=== PATIENT | male | born 1970 | race Caucasian/White ===

== ENCOUNTER 2019-11-15 17:06 | Inpatient (IN) | payer OTHER ==
--- NOTE | 2019-11-15 18:51 | ED ---
SOB HPI - General Source: patient Mode of arrival: wheelchair Limitations: no limitations <Devonte Rosales - Last Filed: 11/15/19 20:05> <Alfreda De La Fuente - Last Filed: 11/20/19 00:43> - General Chief Complaint: Shortness of Breath Stated Complaint: SOB/heart concerns Time Seen by Provider: 11/15/19 18:23 - History of Present Illness Initial Comments: Patient is a 49-year-old male presenting to emergency Department with chief complaint of shortness of breath. Patient states he has not seen a doctor for about 35 years. Patient reports over the last few months he developed dyspnea on exertion. He does report occasional chest pain that he explains describes as a spasm during the past few months as well. Patient reports he does have a racing heartbeat whenever he is doing any extraneous work. Patient denies any diaphoretic episodes, light headedness, dizziness, nausea, vomiting, blurred vision. Denies any chest pain at this time. Denies any abdominal pain or back pain. Denies one-sided weakness or paresthesias. (Devonte Rosales) - Related Data Previous Rx's Medication Instructions Recorded Rivaroxaban [Xarelto] 20 mg PO DAILY #30 tab 11/16/19 Amiodarone [Cordarone] 200 mg PO BID #60 tab 11/18/19 Aspirin 81 mg PO DAILY #30 chew 11/18/19 Atorvastatin [Lipitor] 80 mg PO HS #30 tab 11/18/19 Clopidogrel [Plavix] 75 mg PO DAILY #30 tab 11/18/19 Digoxin [Lanoxin] 125 mcg PO DAILY #30 tab 11/18/19 Furosemide [Lasix] 40 mg PO DAILY #30 tablet 11/18/19 Lisinopril [Zestril] 5 mg PO HS #30 tab 11/18/19 Metoprolol Tartrate [Lopressor] 25 mg PO BID #60 tab 11/18/19 Nitroglycerin Sl Tabs [Nitrostat] 0.4 mg SUBLINGUAL Q5M PRN #7 tab 11/18/19 Spironolactone [Aldactone] 12.5 mg PO DAILY #30 tab 11/18/19 metFORMIN HCL [Glucophage] 850 mg PO BID #60 tab 11/18/19 sitaGLIPtin [Januvia] 100 mg PO DAILY #30 tab 11/18/19 Allergies Allergy/AdvReac Type Severity Reaction Status Date / Time bee venom protein (honey bee) Allergy Anaphylaxis Verified 11/15/19 19:29 shellfish derived Allergy Anaphylaxis Verified 11/15/19 19:29 Review of Systems ROS Other: All systems not noted in ROS Statement are negative. <Devonte Rosales - Last Filed: 11/15/19 20:05> ROS Other: All systems not noted in ROS Statement are negative. <Alfreda De La Fuente - Last Filed: 11/20/19 00:43> ROS Statement: Those systems with pertinent positive or pertinent negative responses have been documented in the HPI. Past Medical History Past Medical History: No Reported History History of Any Multi-Drug Resistant Organisms: None Reported Past Surgical History: No Surgical Hx Reported Past Psychological History: No Psychological Hx Reported Smoking Status: Current some day smoker Past Alcohol Use History: Rare Past Drug Use History: None Reported <Devonte Rosales - Last Filed: 11/15/19 20:05> General Exam Limitations: no limitations General appearance: alert, in no apparent distress, obese Head exam: Present: atraumatic, normocephalic, normal inspection Eye exam: Present: normal appearance, PERRL, EOMI Pupils: Present: normal accommodation ENT exam: Present: normal exam, normal oropharynx, mucous membranes moist Neck exam: Present: normal inspection, full ROM. Absent: tenderness Respiratory exam: Present: normal lung sounds bilaterally. Absent: respiratory distress, wheezes Cardiovascular Exam: Present: normal rhythm, tachycardia, normal heart sounds GI/Abdominal exam: Present: soft. Absent: distended, tenderness, guarding Extremities exam: Present: normal inspection, full ROM, normal capillary refill Back exam: Present: normal inspection, full ROM. Absent: tenderness Neurological exam: Present: alert, oriented X3 Psychiatric exam: Present: normal affect, normal mood Skin exam: Present: warm, dry, intact, normal color <Devonte Rosales - Last Filed: 11/15/19 20:05> Course Vital Signs 11/15/19 11/15/19 11/15/19 17:09 18:29 18:32 Temperature 98.1 F 98.3 F Pulse Rate 68 128 H Respiratory 18 18 18 Rate Blood Pressure 160/95 125/106 O2 Sat by Pulse 98 98 Oximetry 11/15/19 11/15/19 11/15/19 19:26 19:50 21:30 Temperature Pulse Rate 113 H 144 H 125 H Respiratory 18 18 Rate Blood Pressure 124/110 131/111 110/85 O2 Sat by Pulse 97 Oximetry 11/15/19 11/16/19 23:20 01:10 Temperature 98.2 F 97.9 F Pulse Rate 115 H 96 Respiratory 18 Rate Blood Pressure 119/103 135/99 O2 Sat by Pulse 97 97 Oximetry Medical Decision Making <Devonte Rosales - Last Filed: 11/15/19 20:05> - Lab Data Result diagrams: 11/18/19 04:38 11/19/19 14:50 <Alfreda De La Fuente - Last Filed: 11/20/19 00:43> - Medical Decision Making Patient is a 49-year-old male presenting to the emergency department with a chief complaint of shortness of breath. No chest pain at this time. Patient has not seen a physician in over 35 years. EKG shows A. fib with RVR. Pulse 135. Patient started on Cardizem bolus with a drip. Patient started on heparin. D-dimer negative. Patient will be admitted for further medical management. Case discussed with Dr. Prieto. Admitting physician is [facility] consulted (Devonte Rosales) I was available for consultation in the emergency department. The history and physical exam were done by the midlevel provider. I was consulted for this patients care. I reviewed the case with the midlevel provider and based on their presentation of the patient, I agree with the assessment, medical decision making and plan of care as documented. Chart was dictated using [employer] dictation software. Attempts were made to correct any dictation errors however some typographical errors may persist. Patient was seen during a national state of emergency due to the Covid-19 pandemic. (Alfreda De La Fuente) - Lab Data Lab Results 11/15/19 11/15/19 11/15/19 Range/Units 18:47 18:47 18:47 WBC 10.0 (3.8-10.6) k/uL RBC 5.48 (4.30-5.90) m/uL Hgb 16.0 (13.0-17.5) gm/dL Hct 49.5 (39.0-53.0) % MCV 90.3 (80.0-100.0) fL MCH 29.2 (25.0-35.0) pg MCHC 32.4 (31.0-37.0) g/dL RDW 13.0 (11.5-15.5) % Plt Count 219 (150-450) k/uL Neutrophils % 72 % Lymphocytes % 21 % Monocytes % 5 % Eosinophils % 2 % Basophils % 0 % Neutrophils # 7.2 (1.3-7.7) k/uL Lymphocytes # 2.1 (1.0-4.8) k/uL Monocytes # 0.5 (0-1.0) k/uL Eosinophils # 0.2 (0-0.7) k/uL Basophils # 0.0 (0-0.2) k/uL PT (9.0-12.0) sec INR (<1.2) APTT (22.0-30.0) sec D-Dimer (<0.60) mg/L FEU Sodium 138 (137-145) mmol/L Potassium 4.3 (3.5-5.1) mmol/L Chloride 103 (98-107) mmol/L Carbon Dioxide 25 (22-30) mmol/L Anion Gap 10 mmol/L BUN 16 (9-20) mg/dL Creatinine 0.78 (0.66-1.25) mg/dL Est GFR (CKD-EPI)AfAm >90 (>60 ml/min/1.73 sqM) Est GFR (CKD-EPI)NonAf >90 (>60 ml/min/1.73 sqM) Glucose 309 H (74-99) mg/dL Calcium 9.3 (8.4-10.2) mg/dL Total Bilirubin 0.9 (0.2-1.3) mg/dL AST 48 (17-59) U/L ALT 49 (4-49) U/L Alkaline Phosphatase 97 (38-126) U/L Total Creatine Kinase 115 (55-170) U/L CK-MB (CK-2) 3.5 H (0.0-2.4) ng/mL CK-MB (CK-2) Rel Index 3.0 Troponin I 0.062 H* (0.000-0.034) ng/mL NT-Pro-B Natriuret Pep pg/mL Total Protein 7.0 (6.3-8.2) g/dL Albumin 4.4 (3.5-5.0) g/dL Coronavirus (PCR) (Not Detected) 11/15/19 11/15/19 11/15/19 Range/Units 18:47 18:47 20:17 WBC (3.8-10.6) k/uL RBC (4.30-5.90) m/uL Hgb (13.0-17.5) gm/dL Hct (39.0-53.0) % MCV (80.0-100.0) fL MCH (25.0-35.0) pg MCHC (31.0-37.0) g/dL RDW (11.5-15.5) % Plt Count (150-450) k/uL Neutrophils % % Lymphocytes % % Monocytes % % Eosinophils % % Basophils % % Neutrophils # (1.3-7.7) k/uL Lymphocytes # (1.0-4.8) k/uL Monocytes # (0-1.0) k/uL Eosinophils # (0-0.7) k/uL Basophils # (0-0.2) k/uL PT 12.2 H (9.0-12.0) sec INR 1.2 H (<1.2) APTT 23.2 (22.0-30.0) sec D-Dimer 0.46 (<0.60) mg/L FEU Sodium (137-145) mmol/L Potassium (3.5-5.1) mmol/L Chloride (98-107) mmol/L Carbon Dioxide (22-30) mmol/L Anion Gap mmol/L BUN (9-20) mg/dL Creatinine (0.66-1.25) mg/dL Est GFR (CKD-EPI)AfAm (>60 ml/min/1.73 sqM) Est GFR (CKD-EPI)NonAf (>60 ml/min/1.73 sqM) Glucose (74-99) mg/dL Calcium (8.4-10.2) mg/dL Total Bilirubin (0.2-1.3) mg/dL AST (17-59) U/L ALT (4-49) U/L Alkaline Phosphatase (38-126) U/L Total Creatine Kinase (55-170) U/L CK-MB (CK-2) (0.0-2.4) ng/mL CK-MB (CK-2) Rel Index Troponin I (0.000-0.034) ng/mL NT-Pro-B Natriuret Pep 2790 pg/mL Total Protein (6.3-8.2) g/dL Albumin (3.5-5.0) g/dL Coronavirus (PCR) Not Detected (Not Detected) Critical Care Time Critical Care Time: Yes <Alfreda De La Fuente - Last Filed: 11/20/19 00:43> Critical Care Time: 35 minutes (Alfreda De La Fuente) Disposition Is patient prescribed a controlled substance at d/c from ED?: No Time of Disposition: 20:07 <Devonte Rosales - Last Filed: 11/15/19 20:05> <Alfreda De La Fuente - Last Filed: 11/20/19 00:43> Clinical Impression: Shortness of breath, Racing heart beat, Atrial fibrillation with RVR Disposition: ADMITTED IP TO THIS HOSP Condition: Good
[2019-11-15 18:53] LABS: Basophils % (A) 0 %; Eosinophils # (A) 0.2 k/uL (0-0.7); Eosinophils % (A) 2 %; HCT 49.5 % (39.0-53.0); Lymphocytes # (A) 2.1 k/uL (1.0-4.8); Lymphocytes % (A) 21 %; MCH 29.2 pg (25.0-35.0); MCHC 32.4 g/dL (31.0-37.0); MCV 90.3 fL (80.0-100.0); Mean Platelet Volume 8.5; Monocytes # (A) 0.5 k/uL (0-1.0); Monocytes % (A) 5 %; Neutrophils # (A) 7.2 k/uL (1.3-7.7); Neutrophils % (A) 72 %; Platelet Count 219 k/uL (150-450); RBC 5.48 m/uL (4.30-5.90)
[2019-11-15 19:02] LABS: ALT 49 U/L (4-49); AST 48 U/L (17-59); African American GFR (CKD) >90 (>60 ml/min/1.73 sqM); Albumin 4.4 g/dL (3.5-5.0); Alkaline Phosphatase 97 U/L (38-126); Anion Gap 10 mmol/L; Blood Urea Nitrogen 16 mg/dL (9-20); Calcium 9.3 mg/dL (8.4-10.2); Carbon Dioxide 25 mmol/L (22-30); Chloride 103 mmol/L (98-107); Glucose 309 mg/dL (74-99); Non-African American GFR(CKD) >90 (>60 ml/min/1.73 sqM); Potassium 4.3 mmol/L (3.5-5.1); Sodium 138 mmol/L (137-145); Total Bilirubin 0.9 mg/dL (0.2-1.3)
[2019-11-15 19:11] LABS: D-Dimer 0.46 mg/L FEU (<0.60); INR 1.2 (<1.2); Partial Thromboplastin Time 23.2 sec (22.0-30.0); Prothrombin Time 12.2 sec (9.0-12.0)
[2019-11-15 19:13] LABS: Creatine Kinase MB 3.5 ng/mL (0.0-2.4)
[2019-11-15] MEDS ORDERED: DILTIAZEM DRIP BOLUS FROM BAG 1 MG SOLN IV ONE (19:15)
[2019-11-15] MEDS ORDERED: DILTIAZEM 125 MG in SODIUM CHLORIDE 0.9% 100 ML IV SCH (19:15)
--- NOTE | 2019-11-15 19:15 | XR ---
EXAMINATION TYPE: XR chest 2V DATE OF EXAM: 11/15/2019 COMPARISON: 10/22/2012 HISTORY: Short of breath TECHNIQUE: FINDINGS: Heart is enlarged. There is no gross heart failure. There is no definite pleural effusion. There are no hilar masses. There are chest leads. Bony thorax is intact. IMPRESSION: Cardiomegaly. Heart appears increased compared to old exam. No obvious heart failure.
[2019-11-15 19:17] LABS: Troponin I 0.062 ng/mL (0.000-0.034)
[2019-11-15] MEDS ORDERED: ASPIRIN 325 MG TAB PO STA (19:20)
[2019-11-15] MEDS ORDERED: NITROGLYCERIN SL TABS 0.4 MG TAB SUBLINGUAL PRN (20:01)
[2019-11-15] MEDS ORDERED: HEPARIN SODIUM,PORCINE 5,000 UNIT/ML 1 ML VIAL IV ONE ×2 (20:05→22:01)
[2019-11-15] MEDS ORDERED: HEPARIN SODIUM,PORCINE 5,000 UNIT/ML 1 ML VIAL IV PRN (22:01)
[2019-11-15] MEDS ORDERED: HEPARIN SOD,PORK IN 0.45% NACL 25,000 UNIT in 0.45% NACL 1 250ML.BAG IV SCH (22:15)
[2019-11-15] MEDS: HEPARIN SOD,PORK IN 0.45% NACL 25,000 UNIT in 0.45% NACL 1 250ML.BAG IV SCH (23:15)
--- NOTE | 2019-11-15 23:27 | P.HPIM ---
History of Present Illness H&P Date: 11/15/19 Patient was seen and evaluated in the emergency room at 8 PM on 11/14 The patient is a 49-year-old male with a PMH of tobacco abuse who has not seen a physician for over 30 years presented to the ED due to gradually worsening shortness of breath. The patient reports that he has had intermittent palp itations for the past few years and has had gradually worsening exercise tolerance with symptoms of orthopnea and PND for the last 2 or 3 months. He also reports bilateral lower extremity edema for the past few weeks. He denied chest discomfort, nausea, vomiting, diaphoresis, or dizziness. 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 He notes that he now gets short of breath with climbing just a few stairs. He denied cough, fever, or chills. Denied abdominal pain or diarrhea. In the emergency room, the patient's EKG revealed A. fib with RVR at 135 bpm with a left anterior fascicular block. Chest x-ray revealed cardiomegaly. Laboratory evaluation revealed a troponin of 0.062, WC count 10.0, hemoglobin 16.0, platelets 219, d-dimer 0.46, sodium 138, potassium 4.3, chloride 103, BUN 16, creatinine 0.7, and a glucose of 309. The patient reports that he does have a family history of atrial fibrillation and other heart disease. Review of Systems Pertinent positives and negatives as discussed in HPI, a complete review of systems was performed and all other systems are negative. Past Medical History Past Medical History: No Reported History History of Any Multi-Drug Resistant Organisms: None Reported Past Surgical History: No Surgical Hx Reported Past Psychological History: No Psychological Hx Reported Smoking Status: Current some day smoker Past Alcohol Use History: Rare Past Drug Use History: None Reported Medications and Allergies Home Medications Medication Instructions Recorded Confirmed Type Naproxen Sodium [Aleve] 440 mg PO DAILY PRN 11/15/19 11/15/19 History Allergies Allergy/AdvReac Type Severity Reaction Status Date / Time bee venom protein (honey bee) Allergy Anaphylaxis Verified 11/15/19 19:29 shellfish derived Allergy Anaphylaxis Verified 11/15/19 19:29 Physical Exam Vitals: Vital Signs Temp Pulse Resp BP Pulse Ox 11/15/19 19:50 144 H 131/111 11/15/19 19:26 113 H 18 124/110 97 11/15/19 18:32 98.3 F 128 H 18 125/106 98 11/15/19 18:29 18 11/15/19 17:09 98.1 F 68 18 160/95 98 Intake and Output 11/15/19 11/15/19 11/15/19 06:59 14:59 22:59 Other: Weight 143.834 kg General: non toxic, no distress, appears at stated age, obese Derm: no unusual rashes/lesions no unusual ecchymoses, warm, dry Head: atraumatic, normocephalic, symmetric Eyes: EOMI, no lid lag, anicteric sclera, pupils equal round reactive to light ENT: Nose and ears atraumatic, no thrush, no pharyngeal erythema Neck: No thyromegaly, no cervical lymphadenopathy, trachea midline, supple Mouth: no lip lesion, mucus membranes moist Cardiovascular: S1S2 reg, no murmur, positive posterior tibial pulse bilateral, 2+ bilateral lower extremity pitting edema to knees, capillary refill less than 2 seconds Lungs: CTA bilateral, no rhonchi, no rales , no accessory muscle use Abdominal: soft, nontender to palpation, no guarding, no appreciable organomegaly, normal bowel sounds Ext: no gross muscle atrophy, muscle strength 5 out of 5 in all 4 extremities grossly, no contractures, Neuro: CN II-XI grossly intact, light touch intact all 4 extremities, finger to nose within normal limits, Psych: Alert, oriented, appropriate affect Results CBC & Chem 7: 11/15/19 18:47 11/15/19 18:47 Assessment and Plan Plan: Newly diagnosed A. fib with RVR -Continue with heparin infusion and Cardizem infusion -Cardiac monitoring -Echocardiogram -Cardial to consult Cardiomegaly, orthopnea, and PND with lower extremity edema -Suspected cardiomyopathy possibly secondary to A. fib versus underlying ischemic heart disease -Check BNP -Obtain echocardiogram as above -Cardiology consulted Elevated troponin, likely secondary to A. fib with RVR -Trend for now -Cardiac monitoring Newly diagnosed type II DM -Diabetic nurse education -Check A1c -Lispro sliding scale blood glucose monitoring for now DVT prophylaxis -Heparin infusion The patient is admitted with an anticipated greater than 2 midnight stay for evaluation of A. fib with RVR. CODE STATUS: Full Code Discussed with: Patient Anticipated discharge date: 2-[address]: Home A total of 40 minutes was spent on the care of this complex patient more than 50% of the time was spent in counseling and care coordination.
[2019-11-16] MEDS ORDERED: ATORVASTATIN 80 MG TAB PO STA (03:11)
[2019-11-16] MEDS ORDERED: CLOPIDOGREL 75 MG TAB PO STA (03:11)
[2019-11-16] MEDS ORDERED: FUROSEMIDE 10 MG/ML 4 ML VIAL IV STA (03:12)
[2019-11-16 05:53] LABS: Basophils # (A) 0.1 k/uL (0-0.2); Basophils % (A) 1 %; Eosinophils # (A) 0.3 k/uL (0-0.7); Eosinophils % (A) 3 %; HCT 46.7 % (39.0-53.0); HGB 16.1 gm/dL (13.0-17.5); Lymphocytes # (A) 3.8 k/uL (1.0-4.8); Lymphocytes % (A) 38 %; MCH 30.8 pg (25.0-35.0); MCHC 34.5 g/dL (31.0-37.0); MCV 89.2 fL (80.0-100.0); Mean Platelet Volume 8.6; Monocytes # (A) 0.5 k/uL (0-1.0); Monocytes % (A) 5 %; Neutrophils # (A) 5.2 k/uL (1.3-7.7); Neutrophils % (A) 52 %; Platelet Count 210 k/uL (150-450); RBC 5.24 m/uL (4.30-5.90); RDW 13.1 % (11.5-15.5)
[2019-11-16 06:06] LABS: Cholesterol 141 mg/dL (<200); HDL Cholesterol 37 mg/dL (40-60); LDL Cholesterol,Calculated 71 mg/dL (0-99); Triglycerides 166 mg/dL (<150)
[2019-11-16] MEDS: INSULIN ASPART (NovoLOG) 100 UNIT/ML VIAL SQ SCH ×3 (07:54→17:37)
[2019-11-16] MEDS: HEPARIN SODIUM,PORCINE 5,000 UNIT/ML 1 ML VIAL IV PRN ×2 (07:58→17:37)
[2019-11-16] MEDS ORDERED: DEXTROSE 5% IN WATER 100 ML with AMIODARONE 150 MG IV ONE (09:12)
[2019-11-16] MEDS ORDERED: AMIODARONE 360 MG in DEXTROSE 5% IN WATER 200 ML IV ONE ×2 (09:12)
[2019-11-16] MEDS: ASPIRIN 325 MG TAB PO SCH (09:24)
[2019-11-16] MEDS: FUROSEMIDE 10 MG/ML 4 ML VIAL IV SCH ×2 (09:25→20:47)
[2019-11-16] MEDS: CLOPIDOGREL 75 MG TAB PO SCH (09:25)
[2019-11-16] MEDS: DIGOXIN 250 MCG/ML 2 ML AMP IVP SCH ×2 (09:26→15:59)
--- NOTE | 2019-11-16 10:15 | P.CRDCN ---
History of Present Illness Consult date: 11/16/19 History of present illness: This is a 49-year-old gentleman who has not seen a physician since several areas is admitted through emergency room with complaints of increasing shortness of breath and tightness for the last several months. Patient also noticed edema and swelling of the legs. He had symptoms size to of paroxysmal nocturnal dyspnea bradycardia has to wake up at night and sit up and breathe heavy. He also had exertional shortness of breath. His x-ray showed evidence of cardiac megaly. His proBNP is elevated. He had significant edema. Findings were consistent with possible CHF. Patient also has atrial fibrillation with rapid ventricular response. Has been having intermittent palpitations. Bedside echo Cardigan showed severe LV dysfunction with some segmental wall motion defects. Inferobasal segment is doing better. There is severe hypokinesia of the rest of the left ventricle. No significant valvular abnormalities noted. Patient lives by himself. He is not but has one child. No family history of ischemic heart disease. There is family history of atrial fibrillation. Patient denied any alcohol abuse. He is a chronic smoker. Review of Systems As per the chart Past Medical History Past Medical History: No Reported History History of Any Multi-Drug Resistant Organisms: None Reported Past Surgical History: No Surgical Hx Reported Past Psychological History: No Psychological Hx Reported Smoking Status: Current some day smoker Past Alcohol Use History: Rare Past Drug Use History: None Reported Medications and Allergies Home Medications Medication Instructions Recorded Confirmed Type Naproxen Sodium [Aleve] 440 mg PO DAILY PRN 11/15/19 11/15/19 History Allergies Allergy/AdvReac Type Severity Reaction Status Date / Time bee venom protein (honey bee) Allergy Anaphylaxis Verified 11/15/19 19:29 shellfish derived Allergy Anaphylaxis Verified 11/15/19 19:29 Physical Exam Vitals: Vital Signs Temp Pulse Pulse Resp BP BP Pulse Ox 11/16/19 08:00 104 H 12 11/16/19 04:00 98.7 F 104 H 12 112/88 94 L 11/16/19 03:30 99 17 121/109 96 11/16/19 03:00 110 H 14 135/115 94 L 11/16/19 02:30 104 H 16 126/88 95 11/16/19 01:10 97.9 F 96 18 135/99 97 11/15/19 23:20 98.2 F 115 H 119/103 97 11/15/19 21:30 125 H 18 110/85 11/15/19 19:50 144 H 131/111 11/15/19 19:26 113 H 18 124/110 97 11/15/19 18:32 98.3 F 128 H 18 125/106 98 11/15/19 18:29 18 11/15/19 17:09 98.1 F 68 18 160/95 98 Intake and Output 11/15/19 11/16/19 11/16/19 22:59 06:59 14:59 Intake Total 30 578.28 Output Total 1400 350 Balance -1370 228.28 Intake: IV 30 30 .9NS 30 30 Intake, IV Titration 188.28 Amount Dextrose 5% in Water 100 100 ml @ 618 mls/hr IV .Q10M ONE with Amiodarone 150 mg Rx#:[id number] Heparin Sod,Pork in 0.45% 88.28 NaCl 25,000 unit In 0.45 % NaCl 1 250ml.bag @ 6.95 UNITS/KG/HR 9.994 mls/hr IV .Q24H [facility] Rx#: [id number] Oral 360 Output: Urine 1400 350 Other: Weight 143.834 kg 144.1 kg GENERAL EXAM: Patient is alert and oriented and doesn't appear to be in any acute distress HEENT: Normocephalic. Normal reaction of pupils, equal size, normal range of extraocular motion. No erythema or exudates in the throat. NECK: JVD plus CHEST: No chest wall deformity. LUNGS: Patient has chronic basis HEART: S1 and S2 normal. Irregular heart rhythm ABDOMEN: No hepatosplenomegaly, normal bowel sounds, no guarding or rigidity. SKIN: No rashes CENTRAL NERVOUS SYSTEM: No focal deficits. EXTREMITIES: With 3+ edema Results 11/16/19 05:28 11/15/19 18:47 Cardiac Enzymes 11/15/19 11/15/19 11/15/19 Range/Units 18:47 18:47 23:35 AST 48 (17-59) U/L CK-MB (CK-2) 3.5 H (0.0-2.4) ng/mL Troponin I 0.062 H* 0.900 H* (0.000-0.034) ng/mL 11/16/19 Range/Units 07:27 AST (17-59) U/L CK-MB (CK-2) (0.0-2.4) ng/mL Troponin I 1.330 H* (0.000-0.034) ng/mL Coagulation 11/15/19 11/16/19 Range/Units 18:47 05:28 PT 12.2 H (9.0-12.0) sec APTT 23.2 27.8 (22.0-30.0) sec Lipids 11/16/19 Range/Units 05:28 Triglycerides 166 H (<150) mg/dL Cholesterol 141 (<200) mg/dL HDL Cholesterol 37 L (40-60) mg/dL CBC 11/15/19 11/16/19 Range/Units 18:47 05:28 WBC 10.0 10.0 (3.8-10.6) k/uL RBC 5.48 5.24 (4.30-5.90) m/uL Hgb 16.0 16.1 (13.0-17.5) gm/dL Hct 49.5 46.7 (39.0-53.0) % Plt Count 219 210 (150-450) k/uL Comprehensive Metabolic Panel 11/15/19 Range/Units 18:47 Sodium 138 (137-145) mmol/L Potassium 4.3 (3.5-5.1) mmol/L Chloride 103 (98-107) mmol/L Carbon Dioxide 25 (22-30) mmol/L BUN 16 (9-20) mg/dL Creatinine 0.78 (0.66-1.25) mg/dL Glucose 309 H (74-99) mg/dL Calcium 9.3 (8.4-10.2) mg/dL AST 48 (17-59) U/L ALT 49 (4-49) U/L Alkaline Phosphatase 97 (38-126) U/L Total Protein 7.0 (6.3-8.2) g/dL Albumin 4.4 (3.5-5.0) g/dL Current Medications Generic Name Dose Route Start Last Admin Trade Name Freq PRN Reason Stop Dose Admin Aspirin 325 mg 11/16/19 09:00 11/16/19 09:24 Aspirin PO 325 mg DAILY JACLYN Administration Atorvastatin Calcium 80 mg 11/16/19 21:00 Lipitor PO HS JACLYN Clopidogrel Bisulfate 75 mg 11/16/19 09:00 11/16/19 09:25 Plavix PO 75 mg DAILY JACLYN Administration Digoxin 125 mcg 11/16/19 10:00 11/16/19 09:26 Lanoxin IVP 11/16/19 16:01 125 mcg Q6H JACLYN Administration Digoxin 125 mcg 11/17/19 09:00 Lanoxin PO DAILY JACLYN Furosemide 40 mg 11/16/19 09:00 11/16/19 09:25 Lasix IV 40 mg Q12HR JACLYN Administration Heparin Sodium (Porcine) 0 unit 11/15/19 20:05 11/16/19 07:58 Heparin IV 4,000 unit PER PROTOCOL PRN Administration Low PTT Protocol Heparin Sodium/Sodium Chloride 250 mls @ 9.994 mls/hr 11/15/19 20:15 11/16/19 08:05 25,000 unit/ Sodium Chloride IV 9.95 units/kg/hr .Q24H JACLYN 14.308 mls/hr Titration Protocol 6.95 UNITS/KG/HR Amiodarone HCl 360 mg/ 200 mls @ 33.333 mls/hr 11/16/19 09:12 11/16/19 09:26 Dextrose/Water IV 11/16/19 15:11 1 mg/min .Q6H ONE 33.333 mls/hr Administration Protocol 1 MG/MIN Amiodarone HCl 300 mg/ 250 mls @ 25 mls/hr 11/16/19 15:12 Dextrose/Water IV 11/17/19 09:11 .Q10H JACLYN Protocol 0.5 MG/MIN Insulin Aspart 0 unit 11/16/19 07:30 11/16/19 07:54 Novolog SQ 2 unit AC-TID JACLYN Administration Protocol Lisinopril 2.5 mg 11/16/19 09:15 11/16/19 09:26 Zestril PO 2.5 mg DAILY JACLYN Administration Metoprolol Tartrate 12.5 mg 11/16/19 09:00 Lopressor PO BID [facility] Nitroglycerin 0.4 mg 11/15/19 20:01 Nitrostat SUBLINGUAL Q5M PRN Chest Pain Intake and Output 11/15/19 11/16/19 11/16/19 22:59 06:59 14:59 Intake Total 30 578.28 Output Total 1400 350 Balance -1370 228.28 Intake: IV 30 30 .9NS 30 30 Intake, IV Titration 188.28 Amount Dextrose 5% in Water 100 100 ml @ 618 mls/hr IV .Q10M ONE with Amiodarone 150 mg Rx#:[id number] Heparin Sod,Pork in 0.45% 88.28 NaCl 25,000 unit In 0.45 % NaCl 1 250ml.bag @ 6.95 UNITS/KG/HR 9.994 mls/hr IV .Q24H JACLYN Rx#: [id number] Oral 360 Output: Urine 1400 350 Other: Weight 143.834 kg 144.1 kg 11/16/19 05:28 11/15/19 18:47 Assessment and Plan (1) Atrial fibrillation with RVR Current Visit: Yes Status: Acute Code(s): I48.91 - UNSPECIFIED ATRIAL FIBRILLATION SNOMED Code(s): 247800384790203 (2) Ischemic cardiomyopathy Current Visit: Yes Status: Acute Code(s): I25.5 - ISCHEMIC CARDIOMYOPATHY SNOMED Code(s): 521425177 (3) Acute systolic CHF (congestive heart failure) Current Visit: Yes Status: Acute Code(s): I50.21 - ACUTE SYSTOLIC (CONGESTIVE) HEART FAILURE SNOMED Code(s): 553919843 (4) CAD (coronary artery disease) Current Visit: Yes Status: Acute Code(s): I25.10 - ATHSCL HEART DISEASE OF [place] CORONARY ARTERY W/O ANG PCTRS SNOMED Code(s): 23776684 Plan: We'll continue with rate control with amiodarone. Patient will be continued on Lasix and Aldactone. Javier inhibitors will be added along with beta jacqui. Patient may need a cardiac catheterization to rule out underlying ischemic heart disease. Further examination depend upon the clinical course
--- NOTE | 2019-11-16 11:13 | ECHOF ---
Referral Reason:Afib MEASUREMENTS -------- HEIGHT: 188.0 cm WEIGHT: 143.8 kg BP: RVIDd: 4.9 cm (< 3.3) IVSd: 1.3 cm (0.6 - 1.1) LVIDd: 6.0 cm (3.9 - 5.3) LVPWd: 1.3 cm (0.6 - 1.1) IVSs: 1.8 cm LVIDs: 5.4 cm LVPWs: 1.8 cm LA Diam: 5.4 cm (2.7 - 3.8) LAESV Index (A-L): 53.09 ml/m Ao Diam: 3.6 cm (2.0 - 3.7) AV Cusp: 2.3 cm (1.5 - 2.6) MV EXCURSION: 17.961 mm (> 18.000) MV EF SLOPE: 75 mm/s (70 - 150) EPSS: 1.9 cm MV E Ed: 1.17 m/s MV DecT: 380 ms MV A Ed: 0.89 m/s MV E/A Ratio: 1.31 RAP: 5.00 mmHg RVSP: 38.54 mmHg FINDINGS -------- Atrial fibrillation. This was a techncally difficult study with suboptimal views, , Lumason utilized for enhancement of im ages. The left ventricle is mildly dilated. Left ventricular wall thickness is normal. Overall left carlos tricular systolic function is severely impaired with, an EF between 20 - 25 %. Basal anterior LV wa ll motion is akinetic. Mid anterior LV wall motion is akinetic. Mid lateral LV wall motion is a kinetic. Mid anteroseptal LV wall motion is akinetic. Apical anterior LV wall motion is akineti c. Apical lateral LV wall motion is akinetic. Apical septum LV wall motion is akinetic. The right ventricle is severely enlarged. LA is severely dilated >40 ml/m2 The right atrial size is normal. 5.0mg OF Lumason UTLIZED: 2 OR MORE WALL SEGMENTS NOT VISUALIZED. The aortic valve is trileaflet, and appears structurally normal. No aortic stenosis or regurgitation. The mitral valve is normal. [id number]-[id number] mitral regurgitation is present. The tricuspid valve appears structurally normal. Mild tricuspid regurgitation present. There is m ild pulmonary hypertension. There is no pulmonic regurgitation present. The aortic root size is normal. There is no pericardial effusion. CONCLUSIONS -------- 1. This was a techncally difficult study with suboptimal views, , Lumason utilized for enhancement of images. 2. The left ventricle is mildly dilated. 3. Overall left ventricular systolic function is severely impaired with, an EF between 20 - 25 %. 4. Basal anterior LV wall motion is akinetic. 5. Mid anterior LV wall motion is akinetic. 6. Mid lateral LV wall motion is akinetic. 7. Mid anteroseptal LV wall motion is akinetic. 8. Apical anterior LV wall motion is akinetic. 9. Apical lateral LV wall motion is akinetic. 10. Apical septum LV wall motion is akinetic. 11. The right ventricle is severely enlarged. 12. LA is severely dilated >40 ml/m2 13. 5.0mg OF Lumason UTLIZED: 2 OR MORE WALL SEGMENTS NOT VISUALIZED. 14. The aortic valve is trileaflet, and appears structurally normal. No aortic stenosis or regurgitat ion. 15. Dknz-le-kekpekqk mitral regurgitation is present. 16. Mild tricuspid regurgitation present. 17. There is no pulmonic regurgitation present. PRECISION HONING MACHINE OPERATOR: Debora Shepard RDCS
[2019-11-16] MEDS: METOPROLOL TARTRATE 12.5 MG TAB PO SCH ×2 (13:17→20:47)
[2019-11-16 13:47] LABS: Hemoglobin A1C 8.3 % (4.0-6.0)
--- NOTE | 2019-11-16 14:17 | P.PN ---
Subjective Progress Note Date: 11/16/19 (delayed charting seen at 1015) Principal diagnosis: shortness of breath Patient is a 49-year-old male with known prior hyperglycemia, tobacco abuse, and obesity who presented to the emergency department with shortness of breath. In the ER he was found to have atrial fibrillation with rapid ventricular response, elevated troponin felt to be secondary to A. fib with RVR, elevated BNP, and chest x-ray that demonstrated cardiomegaly without obvious heart failure. He was admitted and started on a heparin drip and Cardizem drip. Cardiology was consulted and echocardiogram was ordered. Echocardiogram showed severe systolic impairment with an ejection fraction of 20-25% and global hypokinesis. His troponin continued to elevate. Patient was seen by cardiology and started on amiodarone. He also started the patient on Lasix, Aldactone, and MARIEL inhibitor, and beta jacqui. He'll consider cardiac catheterization to rule out underlying ischemic heart disease. Of note the patient reports he had severe hyperglycemia in the past but has never been formally diagnosed with diabetes. He states that he had intermittently taking his mom diabetic medication in the past. He is also concerned that he will lose his job this coming May and lose his health insurance. He has not seen a physician in years secondary to not having insurance. He reports both of his parents have diabetes. Patient seen and examined at bedside. He still feels that there is a heaviness in his chest and some difficulty breathing, hemoglobin longer feels a racing heart. He denies any lightheadedness, dizziness, nausea, or vomiting. Objective - Vital Signs Vital signs: Vital Signs Temp 98.7 F 11/16/19 04:00 Pulse 104 H 11/16/19 12:00 Resp 12 11/16/19 12:00 BP 112/88 11/16/19 04:00 Pulse Ox 94 L 11/16/19 04:00 Intake & Output 11/15/19 11/16/19 11/16/19 18:59 06:59 18:59 Intake Total 30 1034.28 Output Total 1400 1650 Balance -1370 -615.72 Weight 143.834 kg 144.1 kg Intake: IV 30 60 .9NS 30 60 Intake, IV Titration 254.28 Amount Amiodarone 360 mg In 66 Dextrose 5% in Water 200 ml @ 1 MG/MIN 33.333 mls/ hr IV .Q6H [facility] Rx#: [id number] Dextrose 5% in Water 100 100 ml @ 618 mls/hr IV .Q10M [facility] with Amiodarone 150 mg Rx#:[id number] Heparin Sod,Pork in 0.45% 88.28 NaCl 25,000 unit In 0.45 % NaCl 1 250ml.bag @ 6.95 UNITS/KG/HR 9.994 mls/hr IV .Q24H [facility] Rx#: [id number] Oral 720 Output: Urine 1400 1650 - Exam General: Ill-appearing, no distress, appears at stated age, obese Derm: warm, dry Head: atraumatic, normocephalic, symmetric Eyes: EOMI, no lid lag, anicteric sclera Mouth: no lip lesion, mucus membranes moist Cardiovascular: S1S2 regular, no murmur, positive posterior tibial pulse bilateral, Lungs: Decreased breath sounds bilateral , no accessory muscle use Abdominal: soft, nontender to palpation, no guarding, no appreciable organomegaly Ext: no gross muscle atrophy, 2+ lower extremity edema, no contractures Neuro: CN II-XI grossly intact, no focal neuro deficits Psych: Alert, oriented, appropriate affect - Labs CBC & Chem 7: 11/16/19 05:28 11/15/19 18:47 Labs: Abnormal Lab Results - Last 24 Hours (Table) 11/15/19 11/15/19 11/15/19 Range/Units 18:47 18:47 18:47 PT 12.2 H (9.0-12.0) sec INR 1.2 H (<1.2) Glucose 309 H (74-99) mg/dL Hemoglobin A1c (4.0-6.0) % CK-MB (CK-2) 3.5 H (0.0-2.4) ng/mL Troponin I 0.062 H* (0.000-0.034) ng/mL Triglycerides (<150) mg/dL HDL Cholesterol (40-60) mg/dL 11/15/19 11/16/19 11/16/19 Range/Units 23:35 05:28 05:28 PT (9.0-12.0) sec INR (<1.2) Glucose (74-99) mg/dL Hemoglobin A1c 8.3 H (4.0-6.0) % CK-MB (CK-2) (0.0-2.4) ng/mL Troponin I 0.900 H* (0.000-0.034) ng/mL Triglycerides 166 H (<150) mg/dL HDL Cholesterol 37 L (40-60) mg/dL 11/16/19 Range/Units 07:27 PT (9.0-12.0) sec INR (<1.2) Glucose (74-99) mg/dL Hemoglobin A1c (4.0-6.0) % CK-MB (CK-2) (0.0-2.4) ng/mL Troponin I 1.330 H* (0.000-0.034) ng/mL Triglycerides (<150) mg/dL HDL Cholesterol (40-60) mg/dL Assessment and Plan Assessment: Newly discovered atrial fibrillation with rapid ventricular response -On amiodarone and digoxin per cardiology. Cardizem drip stopped. -Check coverage of Xarelto -Cardiology recommendations appreciated -Telemetry Systolic cardiomyopathy with ejection fraction 20-25%, and acute exacerbation -Continue with Aldactone, digoxin, beta jacqui, MARIEL inhibitor -Monitor fluid status closely may need initiation of Lasix as well -Cardiology recommendations appreciated -Will likely need a heart catheterization Elevated troponins with concern for ischemic heart disease secondary to hypokinesis and depressed ejection fraction -Aspirin, plavix -Heparin drip -Cardiology recommendations -Beta jacqui -Statin -Cholesterol profile in acceptable range Hyperglycemia -Suspect diabetes mellitus with a blood sugar on arrival greater than 300 -Sliding-scale insulin -Await hemoglobin A1c -Consult ear muff assembler -Follow blood sugars Morbid obesity with BMI 36.7 -Structured outpatient weight loss DVT prophylaxis: Heparin infusion Discussed with: Patient, nursing Anticipated discharge: 3-[address]: Home A total of 35 minutes was spent on the care of this complex patient more than 50% of the time was spent in counseling and care coordination.
[2019-11-16 15:27] LABS: Glucose,Whole Blood 389 mg/dL (75-99)
[2019-11-16 15:40] LABS: Glucose,Whole Blood 189 mg/dL (75-99)
[2019-11-16 15:42] LABS: Glucose,Whole Blood 170 mg/dL (75-99)
[2019-11-16] MEDS: AMIODARONE 300 MG in DEXTROSE 5% IN WATER 250 ML IV SCH ×2 (15:58)
[2019-11-16 17:05] LABS: Glucose,Whole Blood 163 mg/dL (75-99)
[2019-11-16] MEDS: HEPARIN SOD,PORK IN 0.45% NACL 25,000 UNIT in 0.45% NACL 1 250ML.BAG IV SCH (17:38)
[2019-11-16] MEDS: ATORVASTATIN 80 MG TAB PO SCH (20:47)
[2019-11-17] MEDS: AMIODARONE 300 MG in DEXTROSE 5% IN WATER 250 ML IV SCH ×2 (03:31)
[2019-11-17 04:53] LABS: Basophils # (A) 0.1 k/uL (0-0.2); Basophils % (A) 1 %; Eosinophils # (A) 0.3 k/uL (0-0.7); Eosinophils % (A) 3 %; HCT 46.7 % (39.0-53.0); HGB 15.6 gm/dL (13.0-17.5); Lymphocytes # (A) 3.9 k/uL (1.0-4.8); Lymphocytes % (A) 34 %; MCH 29.9 pg (25.0-35.0); MCHC 33.4 g/dL (31.0-37.0); MCV 89.4 fL (80.0-100.0); Mean Platelet Volume 8.4; Monocytes # (A) 0.6 k/uL (0-1.0); Monocytes % (A) 5 %; Neutrophils # (A) 6.3 k/uL (1.3-7.7); Neutrophils % (A) 56 %; Platelet Count 213 k/uL (150-450); RBC 5.22 m/uL (4.30-5.90); WBC 11.3 k/uL (3.8-10.6)
[2019-11-17 05:15] LABS: African American GFR (CKD) >90 (>60 ml/min/1.73 sqM); Anion Gap 11 mmol/L; Blood Urea Nitrogen 17 mg/dL (9-20); Calcium 9.1 mg/dL (8.4-10.2); Carbon Dioxide 24 mmol/L (22-30); Chloride 99 mmol/L (98-107); Glucose 274 mg/dL (74-99); Non-African American GFR(CKD) >90 (>60 ml/min/1.73 sqM); Potassium 3.4 mmol/L (3.5-5.1); Sodium 134 mmol/L (137-145)
[2019-11-17] MEDS: HEPARIN SOD,PORK IN 0.45% NACL 25,000 UNIT in 0.45% NACL 1 250ML.BAG IV SCH (06:10)
[2019-11-17] MEDS: HEPARIN SODIUM,PORCINE 5,000 UNIT/ML 1 ML VIAL IV PRN (06:10)
[2019-11-17 07:22] LABS: Glucose,Whole Blood 182 mg/dL (75-99)
[2019-11-17] MEDS: INSULIN ASPART (NovoLOG) 100 UNIT/ML VIAL SQ SCH ×3 (07:32→20:38)
[2019-11-17] MEDS ORDERED: Potassium Replacement Protocol 1 EACH MISC MISCELLANE PRN (07:48)
[2019-11-17] MEDS: POTASSIUM CHLORIDE ER 20 MEQ TAB.ER PO SCH ×2 (08:16→11:08)
[2019-11-17] MEDS: CLOPIDOGREL 75 MG TAB PO SCH (08:16)
[2019-11-17] MEDS: ASPIRIN 325 MG TAB PO SCH (08:16)
[2019-11-17] MEDS: SPIRONOLACTONE 25 MG TAB PO SCH (08:16)
[2019-11-17] MEDS: DIGOXIN 125 MCG TAB PO SCH (08:17)
[2019-11-17] MEDS: FUROSEMIDE 10 MG/ML 4 ML VIAL IV SCH ×2 (08:17→22:07)
[2019-11-17] MEDS: METOPROLOL TARTRATE 12.5 MG TAB PO SCH (08:17)
[2019-11-17] MEDS ORDERED: ATORVASTATIN 80 MG TAB PO STA (10:26)
[2019-11-17] MEDS ORDERED: ASPIRIN 325 MG TAB PO STA (10:26)
[2019-11-17] MEDS ORDERED: ALPRAZolam 0.5 MG TAB PO PRN (10:26)
[2019-11-17] MEDS ORDERED: ALPRAZolam 0.25 MG TAB PO PRN (10:26)
[2019-11-17] MEDS ORDERED: NITROGLYCERIN SL TABS 0.4 MG TAB SUBLINGUAL PRN ×2 (10:26→20:01)
[2019-11-17] MEDS ORDERED: SODIUM CHLORIDE 0.9% 1,000 ML in EMPTY BAG 1 BAG IV ONE (10:26)
[2019-11-17 11:50] LABS: Glucose,Whole Blood 208 mg/dL (75-99)
[2019-11-17] MEDS ORDERED: LIDOCAINE 1% INJ 10MG/ML (20 ML MDV) ONE ×2 (13:26→18:28)
[2019-11-17] MEDS ORDERED: fentaNYL (PF) 50 MCG/ML 2 ML AMP ONE (13:27)
[2019-11-17] MEDS ORDERED: HEPARIN SODIUM 1,000 UN/ML (10ML VL) ONE (13:27)
[2019-11-17] MEDS ORDERED: VERAPAMIL 2.5 MG/ML 2 ML AMP ONE ×2 (13:30→18:28)
[2019-11-17] MEDS ORDERED: IV FLUID CONTINUATION 1,000 ML IV ONE (13:30)
[2019-11-17] MEDS ORDERED: methylPREDNISolone SOD SUCCI 125 MG/2 ML VIAL ONE (13:34)
[2019-11-17] MEDS ORDERED: methylPREDNISolone SOD SUCCI 125 MG/2 ML VIAL IV ONE (13:35)
[2019-11-17] MEDS ORDERED: diphenhydrAMINE 50 MG/ML 1 ML VIAL IVP ONE (13:35)
[2019-11-17] MEDS ORDERED: diphenhydrAMINE 50 MG/ML 1 ML VIAL ONE (13:35)
[2019-11-17] MEDS ORDERED: fentaNYL (PF) 50 MCG/ML 2 ML AMP IV ONE (13:36)
[2019-11-17] MEDS ORDERED: MIDAZOLAM 2 MG/2 ML VIAL IV ONE (13:36)
[2019-11-17] MEDS ORDERED: LIDOCAINE 1% INJ 10MG/ML (20 ML MDV) SQ ONE ×2 (13:37→19:02)
[2019-11-17] MEDS ORDERED: VERAPAMIL SYRINGE (5 MG/10 ML) INTRAARTER ONE ×3 (13:39→19:47)
[2019-11-17] MEDS ORDERED: RX INFO: IV CONTRAST WAS GIVEN 1 EACH MISC MISCELLANE PRN ×2 (14:08→20:01)
[2019-11-17] MEDS ORDERED: FUROSEMIDE 10 MG/ML 4 ML VIAL ONE (14:09)
[2019-11-17] MEDS ORDERED: IOPAMIDOL-370 100ML BTL INJ ONE ×3 (14:14→19:47)
--- NOTE | 2019-11-17 14:14 | P.CARDCATH ---
Date of Procedure: 11/17/19 Preoperative Diagnosis: Ischemic and nonischemic cardiomyopathy, CHF Postoperative Diagnosis: The same Procedure(s) Performed: Left heart catheterization without left ventriculography Description of Procedure: HISTORY: This is a 49-year-old gentleman who was admitted to the hospital with increasing exertional shortness of breath and chest tightness and evidence of congestive heart failure. Echo Cardigan showed evidence of ischemic and nonischemic cardiomyopathy. Patient is advised to have cardiac catheterization for definitive diagnosis CONSENT:I have discussed the risks, benefits and alternative therapies for the above-mentioned procedure and for both sedation/analgesia as well as necessary blood product administration, if indicated, as they pertain to this patient. The patient has indicated understanding and acceptance of the risks and procedures discussed. PROCEDURE: Patient was brought to the lab in a fasting state. Patient was given some IV sedation. The right wrist is infiltrated with lidocaine and right radial artery was entered using Seldinger technique. A 6-Bengali catheter was left in place and selective coronary arteriography was performed. Patient tolerated the procedure well. Patient is found to have a critical lesion in the mid LAD with a long area of stenosis. Patient is waiting to have stent placement by JUSTINE Gomez. The arterial sheath is attached to the arterial line. Patient to be continued on heparin. Patient is given IV saline, Medrol and also Benadryl and about 5000 of heparin bolus Conscious Sedation: Versed 1mg Fentanyl 25 g Duration 25minutes HEMODYNAMICS: The aortic pressure is 160/90. Left ankle end-diastolic pressure is about 15-20. No gradient across the aortic valve SELECTIVE CORONARY ARTERIOGRAPHY: LEFT MAIN: Normal length and free of occlusive disease THE LEFT ANTERIOR DESCENDING CORONARY ARTERY:. Good caliber vessel with about 95% stenosis in midportion followed by a long area of stenosis. The distal LAD is free of occlusive disease THE LEFT CIRCUMFLEX AND IS CORONARY ARTERY: Good caliber vessel free of any significant occlusive disease THE RIGHT CORONARY ARTERY: Good caliber vessel and dominant in distribution. There is mild disease in the proximal portion and also mild disease involving the PDA branch ostium LEFT VENTRICULOGRAPHY: Not performed FINAL IMPRESSION: Critical lesion involving the mid LAD with a long area of stenosis. Rest of the coronary system is free of any significant occlusive disease PLAN:. Stent placement of the LAD to be done by Dr. JUSTINE Gomez PROGNOSIS: Guarded
[2019-11-17] MEDS ORDERED: FUROSEMIDE 10 MG/ML 4 ML VIAL IV ONE (14:15)
--- NOTE | 2019-11-17 15:52 | P.PN ---
Subjective Progress Note Date: 11/17/19 (delayed charting seen at 1250) Principal diagnosis: shortness of breath Patient is a 49-year-old male with known prior hyperglycemia, tobacco abuse, and obesity who presented to the emergency department with shortness of breath. In the ER he was found to have atrial fibrillation with rapid ventricular response, elevated troponin felt to be secondary to A. fib with RVR, elevated BNP, and chest x-ray that demonstrated cardiomegaly without obvious heart failure. He was admitted and started on a heparin drip and Cardizem drip. Cardiology was consulted and echocardiogram was ordered. Echocardiogram showed severe systolic impairment with an ejection fraction of 20-25% and global hypokinesis. His troponin continued to elevate. Patient was seen by cardiology and started on amiodarone. He also started the patient on Lasix, Aldactone, and MARIEL inhibitor, and beta jacqui. He underwent cardiac cath on 11/16 with critical lesion noted in the LAD and plan for stent. Of note the patient reports he had severe hyperglycemia in the past but has never been formally diagnosed with diabetes. He states that he had intermittently taking his mom diabetic medication in the past. He is also concerned that he will lose his job this coming May and lose his health insurance. He has not seen a physician in years secondary to not having insurance. He reports both of his parents have diabetes. A1C came back at 8.3 and plan will be for oral medications on discharge. Patient seen and examined at bedside. Feeling anxious about having a cardiac cath. Months ago home. No current chest pain, shortness of breath appears somewhat better. Discussed that he likely can go home on oral medication for diabetes. Objective - Vital Signs Vital signs: Vital Signs Temp 98.0 F 11/17/19 12:00 Pulse 104 H 11/17/19 12:00 Resp 22 11/17/19 12:00 BP 113/88 11/17/19 13:00 Pulse Ox 98 11/17/19 12:00 Intake & Output 11/16/19 11/17/19 11/17/19 18:59 06:59 18:59 Intake Total 1940.065 863.990 5495.917 Output Total 2950 1150 1000 Balance -1009.935 -545.598 290.917 Intake: IV 130 120 130 .9NS 130 120 30 Intake, IV Titration 590.065 484.402 660.917 Amount Amiodarone 300 mg In 100 250 Dextrose 5% in Water 250 ml @ 0.5 MG/MIN 25 mls/hr IV .Q10H [facility] Rx#: [id number] Amiodarone 360 mg In 165 Dextrose 5% in Water 200 ml @ 1 MG/MIN 33.333 mls/ hr IV .Q6H [facility] Rx#: [id number] Dextrose 5% in Water 100 100 ml @ 618 mls/hr IV .Q10M [facility] with Amiodarone 150 mg Rx#:[id number] Heparin Sod,Pork in 0.45% 225.065 234.402 84.917 NaCl 25,000 unit In 0.45 % NaCl 1 250ml.bag @ 6.95 UNITS/KG/HR 9.994 mls/hr IV .Q24H [facility] Rx#: [id number] Sodium Chloride 0.9% 1, 576 000 ml In Empty Bag 1 bag @ 1 ML/KG/HR 144.1 mls/ hr IV .Q6H57M [facility] Rx#: [id number] Oral 1220 500 Output: Urine 2950 1150 1000 Other: # Voids 0 1 - Exam General: Ill-appearing, no distress, appears at stated age, obese Derm: warm, dry Head: atraumatic, normocephalic, symmetric Eyes: EOMI, no lid lag, anicteric sclera Mouth: no lip lesion, mucus membranes moist Cardiovascular: S1S2 regular, no murmur, positive posterior tibial pulse bilateral, Lungs: Decreased breath sounds bilateral , no accessory muscle use Abdominal: soft, nontender to palpation, no guarding, no appreciable organomegaly Ext: no gross muscle atrophy, 2+ lower extremity edema, no contractures Neuro: CN II-XI grossly intact, no focal neuro deficits Psych: Alert, oriented, appropriate affect - Labs CBC & Chem 7: 11/17/19 04:32 11/17/19 04:32 Labs: Abnormal Lab Results - Last 24 Hours (Table) 11/16/19 11/16/19 11/16/19 Range/Units 01:50 06:49 17:03 WBC (3.8-10.6) k/uL APTT (22.0-30.0) sec Sodium (137-145) mmol/L Potassium (3.5-5.1) mmol/L Glucose (74-99) mg/dL POC Glucose (mg/dL) 189 H 170 H 163 H (75-99) mg/dL 11/16/19 11/17/19 11/17/19 Range/Units 21:20 04:32 04:32 WBC 11.3 H (3.8-10.6) k/uL APTT 43.5 H 38.8 H (22.0-30.0) sec Sodium (137-145) mmol/L Potassium (3.5-5.1) mmol/L Glucose (74-99) mg/dL POC Glucose (mg/dL) (75-99) mg/dL 11/17/19 11/17/19 11/17/19 Range/Units 04:32 07:19 11:49 WBC (3.8-10.6) k/uL APTT (22.0-30.0) sec Sodium 134 L (137-145) mmol/L Potassium 3.4 L (3.5-5.1) mmol/L Glucose 274 H (74-99) mg/dL POC Glucose (mg/dL) 182 H 208 H (75-99) mg/dL Assessment and Plan Assessment: Newly discovered atrial fibrillation with rapid ventricular response -On amiodarone and digoxin per cardiology. -Xarelto approved for discharge -Cardiology recommendations appreciated -Telemetry Systolic cardiomyopathy with ejection fraction 20-25%, and acute exacerbation -Continue with Aldactone, digoxin, beta jacqui, MARIEL inhibitor -Monitor fluid status closely may need initiation of Lasix as well but pressure low normal currently -Cardiology recommendations appreciated NSTEMI - Probable stent to the LAD - Aspirin, plavix - Heparin drip - Cardiology recommendations - Beta jacqui - Statin - Cholesterol profile in acceptable range DM 2 newly discovered -Suspect diabetes mellitus with a blood sugar on arrival greater than 300 -Sliding-scale insulin - hemoglobin A1c 8.3, plan on discharge home on Metformin and Januvia. Patient may benefit from Jardiance but this can be considered once established with a PCP - traffic control signaler has met with patient - glucometer Rx signed -Follow blood sugars Morbid obesity with BMI 36.7 -Structured outpatient weight loss DVT prophylaxis: Heparin infusion Discussed with: Patient, nursing Anticipated discharge: 2-[address]: Home A total of 35 minutes was spent on the care of this complex patient more than 50% of the time was spent in counseling and care coordination.
[2019-11-17 16:50] LABS: Glucose,Whole Blood 212 mg/dL (75-99)
[2019-11-17] MEDS ORDERED: MIDAZOLAM 2 MG/2 ML VIAL IVP ONE (19:01)
[2019-11-17] MEDS ORDERED: IV FLUID CONTINUATION 600 ML IV ONE (19:02)
[2019-11-17] MEDS ORDERED: BIVALIRUDIN BOLUS 250 MG/50 ML IV ONE (19:14)
[2019-11-17] MEDS ORDERED: BIVALIRUDIN 250 MG in SODIUM CHLORIDE 0.9% 50 ML IV ONE ×2 (19:15→19:48)
[2019-11-17] MEDS ORDERED: CLOPIDOGREL 75 MG TAB ONE (19:41)
[2019-11-17] MEDS ORDERED: CLOPIDOGREL 75 MG TAB PO ONE (19:48)
[2019-11-17] MEDS ORDERED: ATROPINE SULFATE 0.1 MG/ML 10ML SYRINGE IV PRN (20:01)
[2019-11-17] MEDS ORDERED: ZOLPIDEM 5 MG TAB PO PRN (20:01)
[2019-11-17] MEDS ORDERED: MAG HYDROX/AL HYDROX/SIMETH 30 ML CUP PO PRN (20:01)
[2019-11-17 20:12] LABS: Glucose,Whole Blood 253 mg/dL (75-99)
[2019-11-17] MEDS: SODIUM CHLORIDE 0.9% 1,000 ML IV SCH (22:05)
[2019-11-17] MEDS: INSULIN DETEMIR (LEVEMIR) 100 UNIT/ML SYR SQ SCH (22:07)
[2019-11-17] MEDS: AMIODARONE 200 MG TAB PO SCH (22:07)
[2019-11-17] MEDS: ATORVASTATIN 80 MG TAB PO SCH (22:07)
[2019-11-17] MEDS: METOPROLOL TARTRATE 25 MG TAB PO SCH (22:08)
[2019-11-17] MEDS: lisinopriL 5 MG TAB PO SCH (22:08)
--- NOTE | 2019-11-17 22:22 | PTCA ---
PERCUTANEOUSTRANS CORORONARY ANGIOGRAPHY DATE OF SERVICE: 11/17/2019 PROCEDURE: Percutaneous transluminal coronary angioplasty and stenting of the long mid left anterior descending coronary artery lesion with 2 drug-eluting stents. PERFORMED BY: Dr. Gibson Gomez. Moderate conscious sedation time was 50 minutes. Patient was administered Versed. Oxygen saturation, hemodynamics and EKG were monitored closely. CLINICAL INFORMATION: Mr. Johnny Kohli is a 49-year-old gentleman who was admitted to the hospital with increasing shortness of breath with a combination of atrial fibrillation, rapid ventricular rate, decreased ejection fraction and a combination of possibly ischemic and nonischemic cardiomyopathy. He had a mild troponin elevation. He was seen and evaluated by Dr. Quinones, who performed the cardiac catheterization earlier today which revealed a long mid LAD lesion of about 95% with sluggish flow. He was advised intervention and brought back for the procedure. The procedure was performed from the right radial approach. PROCEDURE NOTE: Under local anesthesia and strict aseptic precautions, using the same right radial sheath, I proceeded to perform PCI. I used a standard left Hollis type guide catheter of 3.5 bend to cannulate the left coronary artery. This was somewhat difficult because of the tortuosity and a bovine arch. However, I was able to get a decent guide support. A run-through wire was used to cross the lesion. Wire was kept distally. A 2.5 caliber NC Trek balloon of 20 mm length was used to do multiple dilatations in the lesion. I then deployed a 33 mm long 3.25 caliber Xience stent in the distal aspect and a 3.5 caliber 18 mm Xience stent in the proximal aspect. Excellent angiographic result without complication was achieved. The sheath was then taken out and a TR band applied as per protocol. Saturation in the fingers of the right hand was 91%. The patient tolerated the procedure well. He received Angiomax bolus and infusion and he also received 600 mg of Plavix orally. Results were discussed with the patient and images reviewed. There was no family member available. He was sent to the room in a stable condition. Moderate conscious sedation time was 50 minutes. Patient was administered Versed. Oxygen saturation, hemodynamics and EKG were monitored closely. MMODL / IJN: [id number] /
[2019-11-18 05:25] LABS: Basophils % (A) 0 %; Eosinophils % (A) 0 %; HCT 48.7 % (39.0-53.0); HGB 16.7 gm/dL (13.0-17.5); Lymphocytes # (A) 1.3 k/uL (1.0-4.8); Lymphocytes % (A) 9 %; MCH 30.8 pg (25.0-35.0); MCHC 34.4 g/dL (31.0-37.0); MCV 89.7 fL (80.0-100.0); Mean Platelet Volume 8.3; Monocytes # (A) 0.5 k/uL (0-1.0); Monocytes % (A) 3 %; Neutrophils # (A) 12.3 k/uL (1.3-7.7); Neutrophils % (A) 87 %; Platelet Count 253 k/uL (150-450); RBC 5.43 m/uL (4.30-5.90); RDW 12.8 % (11.5-15.5); WBC 14.2 k/uL (3.8-10.6)
[2019-11-18 05:48] LABS: African American GFR (CKD) >90 (>60 ml/min/1.73 sqM); Anion Gap 13 mmol/L; Blood Urea Nitrogen 20 mg/dL (9-20); Calcium 9.8 mg/dL (8.4-10.2); Carbon Dioxide 27 mmol/L (22-30); Chloride 97 mmol/L (98-107); Glucose 214 mg/dL (74-99); Non-African American GFR(CKD) >90 (>60 ml/min/1.73 sqM); Potassium 4.2 mmol/L (3.5-5.1); Sodium 137 mmol/L (137-145)
[2019-11-18] MEDS: INSULIN ASPART (NovoLOG) 100 UNIT/ML VIAL SQ SCH ×3 (07:17→17:04)
[2019-11-18] MEDS: CLOPIDOGREL 75 MG TAB PO SCH (10:05)
[2019-11-18] MEDS: DIGOXIN 125 MCG TAB PO SCH (10:05)
[2019-11-18] MEDS: AMIODARONE 200 MG TAB PO SCH ×2 (10:05→20:17)
[2019-11-18] MEDS: ASPIRIN 81 MG PO SCH (10:05)
[2019-11-18] MEDS: FUROSEMIDE 10 MG/ML 4 ML VIAL IV SCH ×2 (10:05→20:17)
[2019-11-18] MEDS: METOPROLOL TARTRATE 25 MG TAB PO SCH ×2 (10:06→20:17)
[2019-11-18] MEDS: APIXABAN 5 MG TAB PO SCH ×2 (10:06→20:17)
[2019-11-18] MEDS: SODIUM CHLORIDE 0.9% 1,000 ML IV SCH (10:06)
[2019-11-18] MEDS: SPIRONOLACTONE 25 MG TAB PO SCH (10:06)
[2019-11-18 12:04] LABS: Glucose,Whole Blood 206 mg/dL (75-99)
--- NOTE | 2019-11-18 13:32 | PN ---
PROGRESS NOTE Johnny is a 49-year-old gentleman that is admitted to hospital with persistent atrial fibrillation, underwent cardiac catheterization and angioplasty of mid LAD. He is currently on Xanax, Cordarone, Eliquis, aspirin, Lipitor, Plavix, Lanoxin, Lasix, insulin, Zestril, Lopressor and Aldactone. On exam, heart rate is 90 beats per minute. Blood pressure is 102/82, respiratory is 18. Chest exam reveals good air entry bilaterally. Heart exam reveals first and second heart sounds irregular rhythm. ABDOMEN: Soft. Exam of extremities did not reveal any edema. Peripheral pulses are felt. ASSESSMENT: 1. Persistent atrial fibrillation with controlled ventricular rate. 2. Coronary artery disease status post angioplasty of LAD. PLAN: Patient is on optimal medical therapy. We should be able to discharge him home tomorrow. MMODL / IJN: [id number] /
--- NOTE | 2019-11-18 15:35 | P.PN ---
Subjective Progress Note Date: 11/18/19 (delayed charting seen at 1100) Principal diagnosis: shortness of breath Patient is a 49-year-old male with known prior hyperglycemia, tobacco abuse, and obesity who presented to the emergency department with shortness of breath. In the ER he was found to have atrial fibrillation with rapid ventricular response, elevated troponin felt to be secondary to A. fib with RVR, elevated BNP, and chest x-ray that demonstrated cardiomegaly without obvious heart failure. He was admitted and started on a heparin drip and Cardizem drip. Cardiology was consulted and echocardiogram was ordered. Echocardiogram showed severe systolic impairment with an ejection fraction of 20-25% and global hypokinesis. His troponin continued to elevate. Patient was seen by cardiology and started on amiodarone. He also started the patient on Lasix, Aldactone, and MARIEL inhibitor, and beta jacqui. He underwent cardiac cath on 11/16 with critical lesion noted in the LAD and stent placed X 2. Of note the patient reports he had severe hyperglycemia in the past but has never been formally diagnosed with diabetes. He states that he had intermittently taking his mom diabetic medication in the past. He is also concerned that he will lose his job this coming May and lose his health insurance. He has not seen a physician in years secondary to not having insurance. He reports both of his parents have diabetes. A1C came back at 8.3 and for metformin and januvia on discharge Patient seen and examined at bedside. Feeling much improved today. No additional chest heaviness or discomfort, no shortness of breath, no nausea, no vomiting. Continues to have some lower extremity edema but this is much improved. Objective - Vital Signs Vital signs: Vital Signs Temp 98.4 F 11/18/19 12:00 Pulse 74 11/18/19 14:00 Resp 22 11/18/19 14:00 BP 107/75 11/18/19 14:00 Pulse Ox 90 L 11/18/19 14:00 Intake & Output 11/17/19 11/18/19 11/18/19 18:59 06:59 18:59 Intake Total 1590.917 672 600 Output Total 2600 2550 Balance -1009.083 -1878 600 Weight 139.3 kg Intake: IV 130 672 600 .9NS 30 150 600 Sodium Chloride 0.9% 1, 375 000 ml @ 75 mls/hr IV . [id number] [facility] Rx#:[id number] Intake, IV Titration 960.917 Amount Heparin Sod,Pork in 0.45% 84.917 NaCl 25,000 unit In 0.45 % NaCl 1 250ml.bag @ 6.95 UNITS/KG/HR 9.994 mls/hr IV .Q24H [facility] Rx#: [id number] Sodium Chloride 0.9% 1, 300 000 ml @ 75 mls/hr IV . [id number] [facility] Rx#:[id number] Sodium Chloride 0.9% 1, 576 000 ml In Empty Bag 1 bag @ 1 ML/KG/HR 144.1 mls/ hr IV .[id number] ONE Rx#: [id number] Oral 500 Output: Urine 2600 2550 Other: # Voids 1 1 ABP, PAP, CO, CI - Last Documented Arterial Blood Pressure 125/82 - Exam General: Ill-appearing, no distress, appears at stated age, obese Derm: warm, dry Head: atraumatic, normocephalic, symmetric Eyes: EOMI, no lid lag, anicteric sclera Mouth: no lip lesion, mucus membranes moist Cardiovascular: S1S2 irregular, no murmur, positive posterior tibial pulse bilateral, Lungs: CTA bilateral , no accessory muscle use Abdominal: soft, nontender to palpation, no guarding, no appreciable organomegaly Ext: no gross muscle atrophy, 2+ lower extremity edema, no contractures Neuro: CN II-XI grossly intact, no focal neuro deficits Psych: Alert, oriented, appropriate affect - Labs CBC & Chem 7: 11/18/19 04:38 11/18/19 04:38 Labs: Abnormal Lab Results - Last 24 Hours (Table) 11/17/19 11/17/19 11/18/19 Range/Units 16:48 20:11 04:38 WBC 14.2 H (3.8-10.6) k/uL Neutrophils # 12.3 H (1.3-7.7) k/uL Chloride (98-107) mmol/L Glucose (74-99) mg/dL POC Glucose (mg/dL) 212 H 253 H (75-99) mg/dL 11/18/19 11/18/19 Range/Units 04:38 12:02 WBC (3.8-10.6) k/uL Neutrophils # (1.3-7.7) k/uL Chloride 97 L (98-107) mmol/L Glucose 214 H (74-99) mg/dL POC Glucose (mg/dL) 206 H (75-99) mg/dL Assessment and Plan Assessment: Newly discovered atrial fibrillation with rapid ventricular response -On amiodarone and digoxin per cardiology. -Xarelto approved for discharge -Cardiology recommendations appreciated, D/W Dr. Wynn -Telemetry Systolic cardiomyopathy with ejection fraction 20-25%, and acute exacerbation -Continue with Aldactone, digoxin, beta jacqui, MARIEL inhibitor, lasix -RX for dishcarge sent to pharmacy -Cardiology recommendations appreciated NSTEMI - S/P stent X 2 to the LAD - Aspirin, plavix - Cardiology recommendations - Beta jacqui - Statin - Cholesterol profile in acceptable range DM 2 newly discovered -Suspect diabetes mellitus with a blood sugar on arrival greater than 300 -Sliding-scale insulin - hemoglobin A1c 8.3, plan on discharge home on Metformin and Januvia. Patient may benefit from Jardiance but this can be considered once established with a PCP - museum educator has met with patient - glucometer Rx signed -Follow blood sugars Morbid obesity with BMI 36.7 -Structured outpatient weight loss DVT prophylaxis: Xarelto Discussed with: Patient, nursing Anticipated discharge: in AM Anticipated discharge place: Home A total of 25 minutes was spent on the care of this complex patient more than 50% of the time was spent in counseling and care coordination.
[2019-11-18 16:42] LABS: Glucose,Whole Blood 181 mg/dL (75-99)
[2019-11-18] MEDS: lisinopriL 5 MG TAB PO SCH (20:17)
[2019-11-18] MEDS: ATORVASTATIN 80 MG TAB PO SCH (20:17)
[2019-11-18 20:19] LABS: Glucose,Whole Blood 155 mg/dL (75-99)
[2019-11-18] MEDS: INSULIN DETEMIR (LEVEMIR) 100 UNIT/ML SYR SQ SCH (20:28)
[2019-11-19 06:44] LABS: Glucose,Whole Blood 146 mg/dL (75-99)
[2019-11-19] MEDS: SODIUM CHLORIDE 0.9% 1,000 ML IV SCH ×2 (07:02→14:05)
[2019-11-19] MEDS: INSULIN ASPART (NovoLOG) 100 UNIT/ML VIAL SQ SCH ×3 (07:04→16:55)
[2019-11-19] MEDS: DIGOXIN 125 MCG TAB PO SCH (08:17)
[2019-11-19] MEDS: FUROSEMIDE 10 MG/ML 4 ML VIAL IV SCH ×2 (08:17→20:30)
[2019-11-19] MEDS: APIXABAN 5 MG TAB PO SCH ×2 (08:17→20:29)
[2019-11-19] MEDS: SPIRONOLACTONE 25 MG TAB PO SCH (08:17)
[2019-11-19] MEDS: AMIODARONE 200 MG TAB PO SCH ×2 (08:17→20:29)
[2019-11-19] MEDS: METOPROLOL TARTRATE 25 MG TAB PO SCH (08:17)
[2019-11-19] MEDS: CLOPIDOGREL 75 MG TAB PO SCH (08:17)
[2019-11-19] MEDS: ASPIRIN 81 MG PO SCH (08:17)
[2019-11-19 08:22] VITALS: BMI 35.4
--- NOTE | 2019-11-19 10:17 | PN ---
PROGRESS NOTE Johnny is a 49-year-old gentleman that is admitted to hospital with non ST-segment elevation MO and atrial fibrillation. Heart rate is well controlled this morning and he is free of symptoms. An echocardiogram on him showed severe LV systolic dysfunction. PHYSICAL EXAM: Comfortable at rest. Vital signs are stable. There is no jugular venous distention. Chest exam reveals good air entry bilaterally. Heart exam reveals first and second heart sounds. No gallop. Abdomen is soft. Exam of extremities did not reveal any edema. Peripheral pulses are felt. LABORATORY DATA: Lab show that hemoglobin is 16.7, platelet count is 253. Potassium is 4.2, creatinine is 0.78. ASSESSMENT: 1. Persistent atrial fibrillation. 2. Ischemic cardiomyopathy with severe LV dysfunction. 3. Status post cardiac cath and multivessel angioplasty. PLAN: Patient is on optimal medications, which I am going to continue. He needs a life vest prior to discharge. MMODL / IJN: [id number] /
[2019-11-19 11:35] LABS: Glucose,Whole Blood 190 mg/dL (75-99)
--- NOTE | 2019-11-19 14:20 | P.PN ---
Subjective Progress Note Date: 11/19/19 (delayed charting seen at 1030) Principal diagnosis: shortness of breath Patient is a 49-year-old male with known prior hyperglycemia, tobacco abuse, and obesity who presented to the emergency department with shortness of breath. In the ER he was found to have atrial fibrillation with rapid ventricular response, elevated troponin felt to be secondary to A. fib with RVR, elevated BNP, and chest x-ray that demonstrated cardiomegaly without obvious heart failure. He was admitted and started on a heparin drip and Cardizem drip. Cardiology was consulted and echocardiogram was ordered. Echocardiogram showed severe systolic impairment with an ejection fraction of 20-25% and global hypokinesis. His troponin continued to elevate. Patient was seen by cardiology and started on amiodarone. He also started the patient on Lasix, Aldactone, and MARIEL inhibitor, and beta jacqui. He underwent cardiac cath on 11/16 with critical lesion noted in the LAD and stent placed X 2. Due to ischemic cardiomyopathy with EF 25% patient will need life vest prior to discharge. Of note the patient reports he had severe hyperglycemia in the past but has never been formally diagnosed with diabetes. He states that he had intermittently taking his mom diabetic medication in the past. He is also concerned that he will lose his job this coming May and lose his health insurance. He has not seen a physician in years secondary to not having insurance. He reports both of his parents have diabetes. A1C came back at 8.3 and for metformin and januvia on discharge. Patient seen and examined at bedside. No chest pain, shortness breath, nausea, vomiting. Lower extremity edema better today. Anxious to go home. Objective - Vital Signs Vital signs: Vital Signs Temp 97.9 F 11/19/19 12:00 Pulse 75 11/19/19 12:00 Resp 16 11/19/19 12:00 BP 100/86 11/19/19 12:00 Pulse Ox 95 11/19/19 12:00 Intake & Output 11/18/19 11/19/19 11/19/19 18:59 06:59 18:59 Intake Total 900 300 591 Output Total 250 1025 Balance 650 -725 591 Weight 139 kg Intake: IV 900 300 .9NS 600 Sodium Chloride 0.9% 1, 300 300 000 ml @ 75 mls/hr IV . [id number] [facility] Rx#:[id number] Oral 591 Output: Urine 250 1025 Other: # Voids 1 1 1 # Bowel Movements 1 ABP, PAP, CO, CI - Last Documented Arterial Blood Pressure 125/82 - Exam General: Ill-appearing, no distress, appears at stated age, obese Derm: warm, dry Head: atraumatic, normocephalic, symmetric Eyes: EOMI, no lid lag, anicteric sclera Mouth: no lip lesion, mucus membranes moist Cardiovascular: S1S2 irregular, no murmur, positive posterior tibial pulse bi lateral, Lungs: CTA bilateral , no accessory muscle use Abdominal: soft, nontender to palpation, no guarding, no appreciable organomegaly Ext: no gross muscle atrophy, 1+ lower extremity edema, no contractures Neuro: CN II-XI grossly intact, no focal neuro deficits Psych: Alert, oriented, appropriate affect - Labs CBC & Chem 7: 11/18/19 04:38 11/18/19 04:38 Labs: Abnormal Lab Results - Last 24 Hours (Table) 11/18/19 11/18/19 11/19/19 Range/Units 16:39 20:18 06:42 POC Glucose (mg/dL) 181 H 155 H 146 H (75-99) mg/dL 11/19/19 Range/Units 11:33 POC Glucose (mg/dL) 190 H (75-99) mg/dL Assessment and Plan Assessment: Newly discovered atrial fibrillation with rapid ventricular response -On amiodarone and digoxin per cardiology. -Xarelto approved for discharge -Cardiology recommendations appreciated, D/W Dr. Wynn -Telemetry Systolic cardiomyopathy with ejection fraction 20-25%, and acute exacerbation -Continue with Aldactone, digoxin, beta jacqui, MARIEL inhibitor, lasix -RX for dishcarge sent to pharmacy -Cardiology recommendations appreciated - await life vest NSTEMI - S/P stent X 2 to the LAD - Aspirin, plavix - Cardiology recommendations - Beta jacqui - Statin - Cholesterol profile in acceptable range DM 2 newly discovered -Suspect diabetes mellitus with a blood sugar on arrival greater than 300 -Sliding-scale insulin - hemoglobin A1c 8.3, plan on discharge home on Metformin and Januvia. Patient may benefit from Jardiance but this can be considered once established with a PCP - coding educator has met with patient - glucometer Rx signed -Follow blood sugars Morbid obesity with BMI 36.7 -Structured outpatient weight loss DVT prophylaxis: Xarelto Discussed with: Patient, nursing Anticipated discharge: in AM Anticipated discharge place: Home A total of 25 minutes was spent on the care of this complex patient more than 50% of the time was spent in counseling and care coordination.
[2019-11-19 15:57] LABS: African American GFR (CKD) >90 (>60 ml/min/1.73 sqM); Anion Gap 11 mmol/L; Blood Urea Nitrogen 26 mg/dL (9-20); Calcium 9.5 mg/dL (8.4-10.2); Carbon Dioxide 26 mmol/L (22-30); Chloride 100 mmol/L (98-107); Glucose 198 mg/dL (74-99); Magnesium 1.9 mg/dL (1.6-2.3); Non-African American GFR(CKD) >90 (>60 ml/min/1.73 sqM); Sodium 137 mmol/L (137-145)
[2019-11-19 16:50] LABS: Glucose,Whole Blood 151 mg/dL (75-99)
[2019-11-19 20:04] LABS: Glucose,Whole Blood 202 mg/dL (75-99)
[2019-11-19] MEDS: ATORVASTATIN 80 MG TAB PO SCH (20:29)
[2019-11-19] MEDS: INSULIN DETEMIR (LEVEMIR) 100 UNIT/ML SYR SQ SCH (20:29)
[2019-11-19] MEDS: lisinopriL 5 MG TAB PO SCH (20:31)
[2019-11-19] MEDS ORDERED: METOPROLOL TARTRATE 12.5 MG TAB PO SCH (21:00)
[2019-11-20] MEDS: SODIUM CHLORIDE 0.9% 1,000 ML IV SCH (01:49)
[2019-11-20 04:35] LABS: HCT 49.8 % (39.0-53.0); HGB 16.5 gm/dL (13.0-17.5); MCH 29.7 pg (25.0-35.0); MCHC 33.1 g/dL (31.0-37.0); MCV 89.7 fL (80.0-100.0); Mean Platelet Volume 8.4; Platelet Count 230 k/uL (150-450); RBC 5.55 m/uL (4.30-5.90); RDW 12.9 % (11.5-15.5); WBC 13.7 k/uL (3.8-10.6)
[2019-11-20 05:04] LABS: African American GFR (CKD) >90 (>60 ml/min/1.73 sqM); Anion Gap 10 mmol/L; Blood Urea Nitrogen 25 mg/dL (9-20); Calcium 9.6 mg/dL (8.4-10.2); Carbon Dioxide 32 mmol/L (22-30); Chloride 97 mmol/L (98-107); Glucose 180 mg/dL (74-99); Magnesium 2.1 mg/dL (1.6-2.3); Non-African American GFR(CKD) >90 (>60 ml/min/1.73 sqM); Potassium 3.8 mmol/L (3.5-5.1); Sodium 139 mmol/L (137-145)
[2019-11-20 06:57] LABS: Glucose,Whole Blood 183 mg/dL (75-99)
[2019-11-20] MEDS: INSULIN ASPART (NovoLOG) 100 UNIT/ML VIAL SQ SCH ×2 (06:58→12:13)
[2019-11-20] MEDS ORDERED: METOPROLOL TARTRATE 25 MG TAB PO SCH (09:00)
--- NOTE | 2019-11-20 09:36 | PN ---
PROGRESS NOTE Mr. Kohli is in atrial fibrillation, rate is fairly well controlled. He has a combination of ischemic and nonischemic cardiomyopathy, underwent stenting of his LAD. I am recommending a combination of Plavix and Eliquis. He is also on amiodarone and a life vest has been ordered by Dr. Wynn. I have signed the form for Life Vest. I willing to increase the Lopressor to 25 mg in the morning, 12.5 in the evening, increase activity, repeat a quick echo to reassess LV function, increase activity. Plan for discharge. Vitals are stable. JVD 1 cm, no carotid bruit. S1-S2 heard normally, irregular rhythm noted, short systolic murmur noted. Lungs reveal diminished air entry. Abdomen and lower extremity exam is unchanged. Right radial cath site is clean and dry with a good pulse. PLAN: Discharge with a life vest and obtain an echo prior to discharge. MMODL / IJN: [id number] /
[2019-11-20] MEDS: CLOPIDOGREL 75 MG TAB PO SCH (09:40)
[2019-11-20] MEDS: AMIODARONE 200 MG TAB PO SCH (09:41)
[2019-11-20] MEDS: DIGOXIN 125 MCG TAB PO SCH (09:41)
[2019-11-20] MEDS: FUROSEMIDE 10 MG/ML 4 ML VIAL IV SCH (09:42)
--- NOTE | 2019-11-20 11:13 | ECHOF ---
Referral Reason:assess LV function MEASUREMENTS -------- HEIGHT: 188.0 cm WEIGHT: 141.5 kg BP: FINDINGS -------- Sinus rhythm. Echo Done 11/12/19: Limited Echo for LV Function. This was a technically difficult study with suboptimal views. Overall left ventricular systolic function is severely impaired with, an EF between 20 - 25 %. There is a trivial pericardial effusion present. CONCLUSIONS -------- 1. Echo Done 11/12/19: Limited Echo for LV Function. 2. Overall left ventricular systolic function is severely impaired with, an EF between 20 - 25 %. 3. There is a trivial pericardial effusion present. METAL CASKET ASSEMBLER: Debora Shepard RDCS
[2019-11-20] MEDS: SPIRONOLACTONE 25 MG TAB PO SCH (11:38)
[2019-11-20 11:42] LABS: Glucose,Whole Blood 160 mg/dL (75-99)
[2019-11-20 12:46] VITALS: RESP 16; TEMP 98.4
--- NOTE | 2019-11-20 15:06 | P.DS ---
Providers Date of admission: 11/15/19 22:07 Expected date of discharge: 11/20/19 Attending physician: Lauren Barros MD Consults: 11/15/19 20:02 Consult Physician Urgent Consulting Provider: Meri Swanson Consult Reason/Comments: A. fib with RVR, shortness of breath Do you want consulting provider notified?: Yes 11/17/19 20:01 Consult Physician Routine Consulting Provider: [facility] Consult Reason/Comments: Post Interventional patient Do you want consulting provider notified?: Already Contacted Primary care physician: Stated None Hospital Course: Discharge Diagnosis: Newly discovered atrial fibrillation with rapid ventricular response Systolic cardiomyopathy with ejection fraction 20-25%, and acute exacerbation NSTEMI DM 2 newly discovered Morbid obesity with BMI 36.7 Hospital Course: Patient is a 49-year-old male with known prior hyperglycemia, tobacco abuse, and obesity who presented to the emergency department with shortness of breath. In the ER he was found to have atrial fibrillation with rapid ventricular response, elevated troponin felt to be secondary to A. fib with RVR, elevated BNP, and chest x-ray that demonstrated cardiomegaly without obvious heart failure. He was admitted and started on a heparin drip and Cardizem drip. Cardiology was consulted and echocardiogram was ordered. Echocardiogram showed severe systolic impairment with an ejection fraction of 20-25% and global hypokinesis. His troponin continued to elevate. Patient was seen by cardiology and started on amiodarone. He also started the patient on Lasix, Aldactone, and MARIEL inhibitor, and beta jacqui. He underwent cardiac cath on 11/16 with critical lesion noted in the LAD and stent placed X 2. Due to ischemic cardiomyopathy with EF 25% patient will need life vest prior to discharge. Of note the patient reports he had severe hyperglycemia in the past but has never been formally diagnosed with diabetes. He states that he had intermittently taking his mom diabetic medication in the past. He is also concerned that he will lose his job this coming May and lose his health insurance. He has not seen a physician in years secondary to not having insurance. He reports both of his parents have diabetes. A1C came back at 8.3 he will be on metformin and januvia at discharge. Initially he was started on metoprolol 25 mg twice daily but developed some low heart rates, this was optimized by cardiology and will take 25 mg in the morning and 12.5 mg at night. He had a repeat echocardiogram 20 to 25%. He had a life vest placed and he was determined stable for discharge. He will follow with cardio in 1 week and establish a PCP. Patient seen and examined at bedside. No chest pain, SOB, nausea, edema is greatly improved. All questions answered. Vital signs reviewed and stable. General: non toxic, no distress, appears at stated age Derm: warm, dry Head: atraumatic, normocephalic, symmetric Eyes: EOMI, no lid lag, anicteric sclera Mouth: no lip lesion, mucus membranes moist Cardiovascular: S1S2 reg, no murmur, positive posterior tibial pulse bilateral, Lungs: CTA bilateral, no rhonchi, no rales , no accessory muscle use Abdominal: soft, nontender to palpation, no guarding, no appreciable organomegaly Ext: no gross muscle atrophy, trace edema, no contractures Neuro: CN II-XI grossly intact, no focal neuro deficits Psych: Alert, oriented, appropriate affect A total of 35 minutes of time were spent preparing this complex discharge summary . Patient Condition at Discharge: Good Plan - Discharge Summary Discharge Rx Participant: Yes New Discharge Prescriptions: New Rivaroxaban [Xarelto] 20 mg PO DAILY #30 tab Spironolactone [Aldactone] 12.5 mg PO DAILY #30 tab Aspirin 81 mg PO DAILY #30 chew Amiodarone [Cordarone] 200 mg PO BID #60 tab metFORMIN HCL [Glucophage] 850 mg PO BID #60 tab sitaGLIPtin [Januvia] 100 mg PO DAILY #30 tab Digoxin [Lanoxin] 125 mcg PO DAILY #30 tab Furosemide [Lasix] 40 mg PO DAILY #30 tablet Atorvastatin [Lipitor] 80 mg PO HS #30 tab Metoprolol Tartrate [Lopressor] 25 mg PO BID #60 tab Nitroglycerin Sl Tabs [Nitrostat] 0.4 mg SUBLINGUAL Q5M PRN #7 tab PRN Reason: Chest Pain Clopidogrel [Plavix] 75 mg PO DAILY #30 tab Lisinopril [Zestril] 5 mg PO HS #30 tab Discontinued Naproxen Sodium [Aleve] 440 mg PO DAILY PRN PRN Reason: Pain Discharge Medication List Rivaroxaban [Xarelto] 20 mg PO DAILY #30 tab 11/16/19 [Rx] Amiodarone [Cordarone] 200 mg PO BID #60 tab 11/18/19 [Rx] Aspirin 81 mg PO DAILY #30 chew 11/18/19 [Rx] Atorvastatin [Lipitor] 80 mg PO HS #30 tab 11/18/19 [Rx] Clopidogrel [Plavix] 75 mg PO DAILY #30 tab 11/18/19 [Rx] Digoxin [Lanoxin] 125 mcg PO DAILY #30 tab 11/18/19 [Rx] Furosemide [Lasix] 40 mg PO DAILY #30 tablet 11/18/19 [Rx] Lisinopril [Zestril] 5 mg PO HS #30 tab 11/18/19 [Rx] Metoprolol Tartrate [Lopressor] 25 mg PO BID #60 tab 11/18/19 [Rx] Nitroglycerin Sl Tabs [Nitrostat] 0.4 mg SUBLINGUAL Q5M PRN #7 tab 11/18/19 [Rx] Spironolactone [Aldactone] 12.5 mg PO DAILY #30 tab 11/18/19 [Rx] metFORMIN HCL [Glucophage] 850 mg PO BID #60 tab 11/18/19 [Rx] sitaGLIPtin [Januvia] 100 mg PO DAILY #30 tab 11/18/19 [Rx] Follow up Appointment(s)/Referral(s): Jessica Weber MD [Medical Doctor] - 1 Week Nelia Quinones MD [STAFF PHYSICIAN] - 1 Week Activity/Diet/Wound Care/Special Instructions: Activity: as tolerated, Try not to exert yourself to the point of being diaphoretic Diet: heart healthy, carb consistent Special Instructions: Take medications as prescribed Metoprolol 25 mg (1 pill) in the morning and 12.5 mg (1/2 pill) at night Check your blood sugar every morning prior to eating and make a log
[2019-11-20 16:13] VITALS: BP 126/38; PULSE 87
[2019-11-20] MEDS ORDERED: METOPROLOL TARTRATE 12.5 MG TAB PO SCH (21:00)
== END 2019-11-20 16:28 | disposition home or self-care (01) | DRG 246 ==
LOC: EC 17:06 → 3SCARD 22:07 → 2SICU 11-16 01:11
PROVIDERS: ADMIT Internal Medicine; ATTEND Internal Medicine
PROC: B2111ZZ Fluoroscopy of Multiple Coronary Arteries using Low Osmolar Contrast (ICD-10-PCS; 2019-11-17)
PROC: 4A023N7 Measurement of Cardiac Sampling and Pressure, Left Heart, Percutaneous Approach (ICD-10-PCS; 2019-11-17)
PROC: 027035Z Dilation of Coronary Artery, One Artery with Two Drug-eluting Intraluminal Devices, Percutaneous Approach (ICD-10-PCS; principal; 2019-11-17 13:00)
DX: I21.4 Non-ST elevation (NSTEMI) myocardial infarction (principal); I50.21 Acute systolic (congestive) heart failure; I48.19 Other persistent atrial fibrillation; Z11.59 Encounter for screening for other viral diseases; E66.01 Morbid (severe) obesity due to excess calories; E11.65 Type 2 diabetes mellitus with hyperglycemia; F17.200 Nicotine dependence, unspecified, uncomplicated; I25.5 Ischemic cardiomyopathy; I25.10 Atherosclerotic heart disease of native coronary artery without angina pectoris; I44.4 Left anterior fascicular block; Z68.36 Body mass index [BMI] 36.0-36.9, adult; Z71.3 Dietary counseling and surveillance; Z91.013 Allergy to seafood; Z91.030 Bee allergy status; Z82.49 Family history of ischemic heart disease and other diseases of the circulatory system; Z83.3 Family history of diabetes mellitus
CPT/HCPCS: 36415; 71046; 80048; 80053; 80061; 82550; 82553; 83036; 83735; 83880; 84484; 85025; 85027; 85379; 85610; 85730; 93005; 93306; 93308; 93458; 94760; 96365; 96366; 96376; 99291

== ENCOUNTER 2020-04-03 06:59 | Day surgery (SDC) | payer OTHER ==
[2020-04-02 08:41] VITALS: BMI 35.6
[~2020-04-03 06:59] MED LIST: LACTATED RINGERS 1,000 ML IV SCH; ONDANSETRON 4 MG/2 ML VIAL IVP PRN; SODIUM CHLORIDE 0.9% 1,000 ML IV SCH
[2020-04-03] MEDS ORDERED: SODIUM CHLORIDE 0.9% 500 ML 500 ML IV ONE (07:12)
[2020-04-03] MEDS ORDERED: CLOPIDOGREL 75 MG TAB PO STA (07:16)
[2020-04-03] MEDS ORDERED: DIGOXIN 250 MCG/ML 2 ML AMP IVP ONE (07:16)
[2020-04-03] MEDS ORDERED: AMIODARONE 200 MG TAB PO STA (07:16)
[2020-04-03] MEDS ORDERED: METOPROLOL TARTRATE 25 MG TAB PO STA (07:16)
[2020-04-03 07:20] VITALS: TEMP 98.3
[2020-04-03 07:21] LABS: Glucose,Whole Blood 143 mg/dL (75-99)
[2020-04-03 07:40] LABS: Basophils # (A) 0.2 k/uL (0-0.2); Basophils % (A) 1 %; Eosinophils # (A) 2.9 k/uL (0-0.7); Eosinophils % (A) 20 %; HCT 45.1 % (39.0-53.0); HGB 15.6 gm/dL (13.0-17.5); Lymphocytes # (A) 3.7 k/uL (1.0-4.8); Lymphocytes % (A) 26 %; MCH 31.6 pg (25.0-35.0); MCHC 34.6 g/dL (31.0-37.0); MCV 91.4 fL (80.0-100.0); Monocytes # (A) 0.6 k/uL (0-1.0); Monocytes % (A) 4 %; Neutrophils # (A) 6.7 k/uL (1.3-7.7); Neutrophils % (A) 47 %; Platelet Count 244 k/uL (150-450); RBC 4.93 m/uL (4.30-5.90); RDW 13.1 % (11.5-15.5); WBC 14.2 k/uL (3.8-10.6)
[2020-04-03] MEDS ORDERED: PROPOFOL 10 MG/ML 20 ML VIAL IV ONE (07:45)
[2020-04-03] MEDS ORDERED: LIDOCAINE 1% INJ 10MG/ML (20 ML MDV) ONE (07:45)
[2020-04-03 07:48] LABS: African American GFR (CKD) >90 (>60 ml/min/1.73 sqM); Anion Gap 10 mmol/L; Blood Urea Nitrogen 16 mg/dL (9-20); Calcium 9.5 mg/dL (8.4-10.2); Carbon Dioxide 26 mmol/L (22-30); Chloride 106 mmol/L (98-107); Glucose 166 mg/dL (74-99); Non-African American GFR(CKD) 82 (>60 ml/min/1.73 sqM); Potassium 3.9 mmol/L (3.5-5.1); Sodium 142 mmol/L (137-145)
[2020-04-03] MEDS ORDERED: BENZOCAINE SPRAY 1 CAN TOPICAL ONE (08:02)
[2020-04-03] MEDS ORDERED: SODIUM CHLORIDE 0.9% 1,000 ML IV SCH (08:30)
--- NOTE | 2020-04-03 08:37 | P.PCN ---
Date of Procedure: 04/03/20 Preoperative Diagnosis: Atrial fibrillation with controlled ventricular response, cardiomyopathy Postoperative Diagnosis: Successful conversion to sinus rhythm Procedure(s) Performed: SILVIANO followed by cardioversion Description of Procedure: This 49-year-old gentleman was admitted to the hospital with evidence of cardiomyopathy, congestive heart failure and subsequently had stent placement to the LAD. Patient also had persistent atrial fibrillation. He is being treated with anticoagulation and rate controlling medication. He is advised to have cardioversion to establish sinus rhythm. SILVIANO: Patient was prepped and draped in the usual fashion. This throat was sprayed with Hurricaine. Patient was given IV sedation by department of anesthesia using propofol. A lubricated Omni probe was introduced into the oropharynx and was advanced into the esophagus. Multiple views were obtained. The left atrial appendage appeared free of any clot. The mitral, aortic and tricuspid valves appear to be normal in structure and function. The interatrial septum is intact without any spontaneous shunt. Injection of the bubbles did not reveal any crossover bubbles across the interatrial septum. Color, pulsed and continuous wave Doppler studies were done. Saline contrast bubble injections also performed. Patient tolerated the procedure well. Final impression: No clot in left atrial appendage. Proceed with cardioversion. CARDIOVERSION: After completion of the SILVIANO, cardioversion was performed with the anterior-posterior paddles. A single shock of 200 J was applied. Successful conversion to sinus rhythm. Patient tolerated the procedure well. Plan: Patient will be discharged later today. Patient will continue home medications except cut back the amiodarone to 1 tablet daily. We'll may discontinue digoxin and a future. Follow-up in the office in one week. No driving today. Soft diet when gag reflex is back.
[2020-04-03 09:35] VITALS: BP 116/72; PULSE 50
[2020-04-03 09:43] VITALS: RESP 18
== END 2020-04-03 09:56 | disposition home or self-care (01) ==
LOC: CATHCVL 06:59
PROVIDERS: ATTEND Internal Medicine Cardiovascular Disease
DX: I48.19 Other persistent atrial fibrillation (principal); I25.10 Atherosclerotic heart disease of native coronary artery without angina pectoris; I11.0 Hypertensive heart disease with heart failure; I50.22 Chronic systolic (congestive) heart failure; F17.210 Nicotine dependence, cigarettes, uncomplicated; I42.9 Cardiomyopathy, unspecified; Z95.5 Presence of coronary angioplasty implant and graft; E11.9 Type 2 diabetes mellitus without complications; E78.5 Hyperlipidemia, unspecified; E78.00 Pure hypercholesterolemia, unspecified; Z82.49 Family history of ischemic heart disease and other diseases of the circulatory system; Z79.01 Long term (current) use of anticoagulants; Z79.84 Long term (current) use of oral hypoglycemic drugs; Z79.02 Long term (current) use of antithrombotics/antiplatelets; Z79.82 Long term (current) use of aspirin; Z79.899 Other long term (current) drug therapy
CPT/HCPCS: 93312; 93320; 93325; 92960; 80048; 85025; J2001; J2704

== ENCOUNTER 2021-11-02 14:13 | Inpatient (IN) | payer OTHER ==
[2021-11-02] MEDS ORDERED: HEPARIN SODIUM 1,000 UN/ML (10ML VL) IV ONE (14:50)
[2021-11-02] MEDS ORDERED: ASPIRIN 81 MG PO STA (14:50)
[2021-11-02] MEDS ORDERED: DILTIAZEM DRIP BOLUS FROM BAG 1 MG SOLN IV ONE (14:50)
[2021-11-02 14:57] LABS: Basophils # (A) 0.1 k/uL (0-0.2); Basophils % (A) 1 %; Eosinophils # (A) 0.2 k/uL (0-0.7); Eosinophils % (A) 2 %; HCT 53.4 % (39.0-53.0); HGB 18.5 gm/dL (13.0-17.5); Lymphocytes # (A) 2.8 k/uL (1.0-4.8); Lymphocytes % (A) 26 %; MCH 30.3 pg (25.0-35.0); MCHC 34.7 g/dL (31.0-37.0); MCV 87.3 fL (80.0-100.0); Monocytes # (A) 0.5 k/uL (0-1.0); Monocytes % (A) 5 %; Neutrophils # (A) 7.2 k/uL (1.3-7.7); Neutrophils % (A) 66 %; Platelet Count 281 k/uL (150-450); RBC 6.12 m/uL (4.30-5.90); RDW 12.6 % (11.5-15.5)
--- NOTE | 2021-11-02 14:57 | ED ---
Arrhythmia/Palpitations HPI - General Chief Complaint: Arrhythmia/Palpitations Stated Complaint: Cardiac/Afib/SOB Time Seen by Provider: 11/02/21 14:25 Source: patient, RN notes reviewed Mode of arrival: ambulatory Limitations: no limitations - History of Present Illness Initial Comments: 51-year-old male presents emergency Department chief complaint of chest pain, palpitations. Patient states this started on Wednesday and felt that it was going to pass but states he is still symptomatic. Patient does have a history of atrial fibrillation states that he's had cardioversion in the past. Patient states that he was on Xarelto in medications for his diabetes but states he has not been on any current medications secondary to insurance and financial reasons. Patient states she's had on-and-off palpitations, diaphoresis, mild chest discomfort. - Related Data Previous Rx's Medication Instructions Recorded Rivaroxaban [Xarelto] 20 mg PO DAILY #30 tab 11/16/19 Aspirin 81 mg PO DAILY #30 chew 11/18/19 Atorvastatin [Lipitor] 80 mg PO HS #30 tab 11/18/19 Clopidogrel [Plavix] 75 mg PO DAILY #30 tab 11/18/19 Digoxin [Lanoxin] 125 mcg PO DAILY #30 tab 11/18/19 Furosemide [Lasix] 40 mg PO DAILY #30 tablet 11/18/19 Metoprolol Tartrate [Lopressor] 25 mg PO BID #60 tab 11/18/19 Nitroglycerin Sl Tabs [Nitrostat] 0.4 mg SUBLINGUAL Q5M PRN #7 tab 11/18/19 Spironolactone [Aldactone] 12.5 mg PO DAILY #30 tab 11/18/19 lisinopriL [Zestril] 5 mg PO HS #30 tab 11/18/19 metFORMIN HCL [Glucophage] 850 mg PO BID #60 tab 11/18/19 sitaGLIPtin [Januvia] 100 mg PO DAILY #30 tab 11/18/19 Amiodarone [Cordarone] 200 mg PO DAILY #60 tab 04/03/20 Allergies Allergy/AdvReac Type Severity Reaction Status Date / Time bee venom protein (honey bee) Allergy Anaphylaxis Verified 11/02/21 14:22 shellfish derived Allergy Anaphylaxis Verified 11/02/21 14:22 Review of Systems ROS Statement: Those systems with pertinent positive or pertinent negative responses have been documented in the HPI. ROS Other: All systems not noted in ROS Statement are negative. Past Medical History Past Medical History: Atrial Fibrillation, Diabetes Mellitus, Hyperlipidemia, Hypertension Additional Past Medical History / Comment(s): Echo 11/20/19 EF 20-25% History of Any Multi-Drug Resistant Organisms: None Reported Past Surgical History: Heart Catheterization With Stent Additional Past Surgical History / Comment(s): LAD stent X 2 on 11/17/19 Past Anesthesia/Blood Transfusion Reactions: No Reported Reaction Date of Last Stent Placement:: 11/17/19 Past Psychological History: No Psychological Hx Reported Smoking Status: Current every day smoker Past Alcohol Use History: None Reported Past Drug Use History: None Reported - Past Family History Mother Family Medical History: Cancer General Exam Limitations: no limitations General appearance: alert, in no apparent distress Head exam: Present: atraumatic, normocephalic, normal inspection Eye exam: Present: normal appearance, PERRL, EOMI. Absent: scleral icterus, conjunctival injection, periorbital swelling ENT exam: Present: normal exam, normal oropharynx, mucous membranes moist Neck exam: Present: normal inspection, full ROM. Absent: tenderness, meningismus, lymphadenopathy Respiratory exam: Present: normal lung sounds bilaterally. Absent: respiratory distress, wheezes, rales, rhonchi, stridor Cardiovascular Exam: Present: tachycardia, irregular rhythm, normal heart sounds. Absent: regular rate, normal rhythm, systolic murmur, diastolic murmur, rubs, gallop, clicks GI/Abdominal exam: Present: soft, normal bowel sounds. Absent: distended, tenderness, guarding, rebound, rigid Extremities exam: Absent: pedal edema Back exam: Absent: CVA tenderness (R), CVA tenderness (L) Neurological exam: Present: alert Course Vital Signs 11/02/21 11/02/21 14:15 15:22 Temperature 96.9 F L Pulse Rate 67 110 H Respiratory 18 18 Rate Blood Pressure 160/83 134/89 O2 Sat by Pulse 100 Oximetry EKG Findings - EKG Comments: EKG Findings:: EKG performed at 14:27 A. fib with RVR rate of 146 QRS 102 QT/ QTC to 81/365 Medical Decision Making - Medical Decision Making 51-year-old presented for palpitations, chest pain, dyspnea. Patient presented and A. fib RVR. Patient is on no medications. Patient was started on Cardizem, heparin. Patiently admitted for cardiology evaluation and further treatment and management. - Lab Data Result diagrams: 11/02/21 14:38 11/02/21 14:38 Lab Results 11/02/21 11/02/21 11/02/21 Range/Units 14:38 14:38 14:38 WBC 11.0 H (3.8-10.6) k/uL RBC 6.12 H (4.30-5.90) m/uL Hgb 18.5 H (13.0-17.5) gm/dL Hct 53.4 H (39.0-53.0) % MCV 87.3 (80.0-100.0) fL MCH 30.3 (25.0-35.0) pg MCHC 34.7 (31.0-37.0) g/dL RDW 12.6 (11.5-15.5) % Plt Count 281 (150-450) k/uL MPV 8.0 Neutrophils % 66 % Lymphocytes % 26 % Monocytes % 5 % Eosinophils % 2 % Basophils % 1 % Neutrophils # 7.2 (1.3-7.7) k/uL Lymphocytes # 2.8 (1.0-4.8) k/uL Monocytes # 0.5 (0-1.0) k/uL Eosinophils # 0.2 (0-0.7) k/uL Basophils # 0.1 (0-0.2) k/uL PT 13.5 H (9.0-12.0) sec INR 1.3 H (<1.2) APTT 27.4 (22.0-30.0) sec Sodium 139 (137-145) mmol/L Potassium 4.1 (3.5-5.1) mmol/L Chloride 106 (98-107) mmol/L Carbon Dioxide 23 (22-30) mmol/L Anion Gap 10 mmol/L BUN 15 (9-20) mg/dL Creatinine 0.94 (0.66-1.25) mg/dL Est GFR (CKD-EPI)AfAm >90 (>60 ml/min/1.73 sqM) Est GFR (CKD-EPI)NonAf >90 (>60 ml/min/1.73 sqM) Glucose 186 H (74-99) mg/dL Calcium 9.4 (8.4-10.2) mg/dL Magnesium 1.8 (1.6-2.3) mg/dL Total Bilirubin 0.9 (0.2-1.3) mg/dL AST 20 (17-59) U/L ALT 18 (4-49) U/L Alkaline Phosphatase 99 (38-126) U/L Troponin I (0.000-0.034) ng/mL Total Protein 7.6 (6.3-8.2) g/dL Albumin 4.5 (3.5-5.0) g/dL 11/02/21 Range/Units 14:38 WBC (3.8-10.6) k/uL RBC (4.30-5.90) m/uL Hgb (13.0-17.5) gm/dL Hct (39.0-53.0) % MCV (80.0-100.0) fL MCH (25.0-35.0) pg MCHC (31.0-37.0) g/dL RDW (11.5-15.5) % Plt Count (150-450) k/uL MPV Neutrophils % % Lymphocytes % % Monocytes % % Eosinophils % % Basophils % % Neutrophils # (1.3-7.7) k/uL Lymphocytes # (1.0-4.8) k/uL Monocytes # (0-1.0) k/uL Eosinophils # (0-0.7) k/uL Basophils # (0-0.2) k/uL PT (9.0-12.0) sec INR (<1.2) APTT (22.0-30.0) sec Sodium (137-145) mmol/L Potassium (3.5-5.1) mmol/L Chloride (98-107) mmol/L Carbon Dioxide (22-30) mmol/L Anion Gap mmol/L BUN (9-20) mg/dL Creatinine (0.66-1.25) mg/dL Est GFR (CKD-EPI)AfAm (>60 ml/min/1.73 sqM) Est GFR (CKD-EPI)NonAf (>60 ml/min/1.73 sqM) Glucose (74-99) mg/dL Calcium (8.4-10.2) mg/dL Magnesium (1.6-2.3) mg/dL Total Bilirubin (0.2-1.3) mg/dL AST (17-59) U/L ALT (4-49) U/L Alkaline Phosphatase (38-126) U/L Troponin I <0.012 (0.000-0.034) ng/mL Total Protein (6.3-8.2) g/dL Albumin (3.5-5.0) g/dL Critical Care Time Critical Care Time: Yes Total Critical Care Time: 35 Disposition Clinical Impression: Atrial fibrillation with RVR, Uncontrolled diabetes mellitus Disposition: ADMITTED IP TO THIS HOSP Referrals: Jessica Weber MD [Primary Care Provider] - 1-2 days
[2021-11-02] MEDS ORDERED: DILTIAZEM 125 MG in SODIUM CHLORIDE 0.9% 100 ML IV SCH (15:00)
[2021-11-02] MEDS ORDERED: HEPARIN SOD,PORK IN 0.45% NACL 25,000 UNIT in 0.45% NACL 1 250ML.BAG IV SCH (15:00)
[2021-11-02 15:05] LABS: INR 1.3 (<1.2); Partial Thromboplastin Time 27.4 sec (22.0-30.0); Prothrombin Time 13.5 sec (9.0-12.0)
[2021-11-02 15:07] LABS: ALT 18 U/L (4-49); AST 20 U/L (17-59); African American GFR (CKD) >90 (>60 ml/min/1.73 sqM); Albumin 4.5 g/dL (3.5-5.0); Alkaline Phosphatase 99 U/L (38-126); Anion Gap 10 mmol/L; Blood Urea Nitrogen 15 mg/dL (9-20); Calcium 9.4 mg/dL (8.4-10.2); Carbon Dioxide 23 mmol/L (22-30); Chloride 106 mmol/L (98-107); Glucose 186 mg/dL (74-99); Magnesium 1.8 mg/dL (1.6-2.3); Non-African American GFR(CKD) >90 (>60 ml/min/1.73 sqM); Potassium 4.1 mmol/L (3.5-5.1); Sodium 139 mmol/L (137-145); Total Bilirubin 0.9 mg/dL (0.2-1.3); Total Protein 7.6 g/dL (6.3-8.2)
--- NOTE | 2021-11-02 15:57 | XR ---
EXAMINATION TYPE: XR chest 2V DATE OF EXAM: 11/02/2021 COMPARISON: 11/15/2019 HISTORY: Short of breath. Dysrhythmia TECHNIQUE: 2 views FINDINGS: Heart is normal. Lungs are clear of infiltrate. No heart failure. There are no hilar masses . Bony thorax is intact. IMPRESSION: No active cardiopulmonary disease. No adverse change.
[2021-11-02] MEDS ORDERED: ONDANSETRON 4 MG/2 ML VIAL IVP PRN (16:14)
[2021-11-02] MEDS ORDERED: NALOXONE 0.4 MG/ML 1 ML VIAL IV PRN (16:14)
[2021-11-02 20:26] LABS: Glucose,Whole Blood 161 mg/dL (70-110)
[2021-11-02] MEDS: INSULIN ASPART (NovoLOG) 100 UNIT/ML VIAL SQ SCH (21:08)
[2021-11-02 21:14] LABS: INR 1.2 (<1.2); Partial Thromboplastin Time 29.8 sec (22.0-30.0); Prothrombin Time 12.9 sec (9.0-12.0)
[2021-11-02] MEDS: HEPARIN SODIUM 1,000 UN/ML (10ML VL) IV PRN (21:27)
[2021-11-03] MEDS: HEPARIN SODIUM 1,000 UN/ML (10ML VL) IV PRN (03:07)
[2021-11-03 06:01] LABS: Glucose,Whole Blood 135 mg/dL (70-110)
[2021-11-03] MEDS: INSULIN ASPART (NovoLOG) 100 UNIT/ML VIAL SQ SCH ×4 (06:11→21:09)
--- NOTE | 2021-11-03 08:09 | P.CRDCN ---
History of Present Illness Consult date: 11/03/21 History of present illness: History of Present Illness: The patient is a 51-year-old male with a prior history of atrial fibrillation, cardiomyopathy and CAD who presented with palpitation started 3 days ago associated with some dyspnea. In 2019 he presented with atrial fibrillation, cardiomyopathy and underwent stenting of the LAD and subsequently cardioversion and buddhism of sinus mechanism. His initial echocardiogram showed an ejection fraction of 20-25% his most recent echocardiogram in May showed an ejection fraction of 50-55%. Patient has not been seen in the cardiology office since May 2020. He stopped all his medications because of cost. He was on anticoagulation. According to him he has been doing well with brief occasional palpitations but not persistent until this time. He denies any significant chest discomfort or dyspnea. He has occasional peripheral edema but no PND or orthopnea. He has a prior history of hypertension, hyperlipidemia and diabetes mellitus. He continues to smoke but according to him down to 2 packs per week instead a pack and a half a day. He denies alcohol intake. In the emergency room he was noted to be in atrial fibrillation with rapid ventricle response. Review of Systems: Respiratory: No history of asthma, bronchitis or recent cough. GI: She had nausea and vomiting today. No history of peptic ulcer disease. No recent GI bleed. : No hematuria or dysuria. Nervous System: No stroke or seizure. Physical Examination: 51-year-old male, alert oriented no apparent distress. Blood pressure 144/88 with a heart rate 70s. Head: Normocephalic. Eyes: Sclerae nonicteric. Neck: Good carotid upstroke, no bruit, no jugular venous distention. Lungs: Clear to auscultation. Heart: Irregular rate and rhythm, S1-S2, no S3, no rub. No murmur. Abdomen: Soft nontender, positive bowel sounds no organomegaly. Extremities: No edema, intact distal pulses, chronic discoloration. Labs: Troponin less than 0.012. BUN 15, creatinine 0.94. Potassium 4.1. Hemoglobin 18.5, white blood cell 11. EKG atrial fibrillation with rapid ventricular response and left axis deviation. Chest x-ray no acute infiltrate Impression: 1. Atrial fibrillation with rapid ventricular response, not anticoagulated. His score is 4 2. History of atrial flutter ablation status post cardioversion in 2019 3. Prior history of cardiomyopathy improved post cardioversion 4. History of CAD and stenting of the LAD 5. History of hypertension 6. History of diabetes 7. History of smoking 8. Noncompliance Plan: 1. Start oral anticoagulation and changed to beta jacqui 2. Obtain an echocardiogram with Doppler 3. I discussed with the patient the risk of stroke and thromboembolic phenomena 4. Depending on the results of the echo further recommendations will be made regarding repeat cardioversion 5. Thank you for this consult we will follow with you. Past Medical History Past Medical History: Atrial Fibrillation, Diabetes Mellitus, Hyperlipidemia, Hypertension Additional Past Medical History / Comment(s): Echo 11/20/19 EF 20-25% History of Any Multi-Drug Resistant Organisms: None Reported Past Surgical History: Heart Catheterization With Stent Additional Past Surgical History / Comment(s): LAD stent X 2 on 11/17/19 Past Anesthesia/Blood Transfusion Reactions: No Reported Reaction Date of Last Stent Placement:: 11/17/19 Past Psychological History: No Psychological Hx Reported Smoking Status: Current every day smoker Past Alcohol Use History: None Reported Additional Past Alcohol Use History / Comment(s): SMOKING < 1/2 PPD SINCE AGE 15 Past Drug Use History: None Reported - Past Family History Mother Family Medical History: Cancer Medications and Allergies Home Medications Medication Instructions Recorded Confirmed Type hydrALAZINE HCL [Apresoline] 10 mg PO DIRECTED 11/02/21 11/02/21 History Allergies Allergy/AdvReac Type Severity Reaction Status Date / Time bee venom protein (honey bee) Allergy Anaphylaxis Verified 11/02/21 16:33 shellfish derived Allergy Anaphylaxis Verified 11/02/21 16:33 Physical Exam Vitals: Vital Signs Temp Pulse Pulse Resp BP BP Pulse Ox 11/03/21 04:00 75 16 144/88 99 11/03/21 00:00 98.5 F 71 13 129/89 96 11/02/21 20:00 98.2 F 71 15 135/83 97 11/02/21 18:24 97.4 F L 104 H 16 128/84 98 11/02/21 16:42 115 H 16 134/89 98 11/02/21 16:41 97.8 F 75 16 131/88 98 11/02/21 16:22 116 H 16 11/02/21 15:22 110 H 18 134/89 11/02/21 14:15 96.9 F L 67 18 160/83 100 Intake and Output 11/02/21 11/03/21 11/03/21 22:59 06:59 14:59 Intake Total 302.667 77.867 Balance 302.667 77.867 Intake: Intake, IV Titration 62.667 77.867 Amount Heparin Sod,Pork in 0.45% 62.667 77.867 NaCl 25,000 unit In 0.45 % NaCl 1 250ml.bag @ 8. 105 UNITS/KG/HR 10 mls/hr IV .Q24H [facility] Rx#: [id number] Oral 240 Other: Voiding Method Toilet Toilet Urinal Urinal # Voids 1 Weight 123.377 kg Results 11/02/21 14:38 11/02/21 14:38 Cardiac Enzymes 11/02/21 11/02/21 Range/Units 14:38 14:38 AST 20 (17-59) U/L Troponin I <0.012 (0.000-0.034) ng/mL Coagulation 11/02/21 11/02/21 11/03/21 Range/Units 14:38 20:29 02:32 PT 13.5 H 12.9 H (9.0-12.0) sec APTT 27.4 29.8 36.4 H (22.0-30.0) sec CBC 11/02/21 Range/Units 14:38 WBC 11.0 H (3.8-10.6) k/uL RBC 6.12 H (4.30-5.90) m/uL Hgb 18.5 H (13.0-17.5) gm/dL Hct 53.4 H (39.0-53.0) % Plt Count 281 (150-450) k/uL Comprehensive Metabolic Panel 11/02/21 Range/Units 14:38 Sodium 139 (137-145) mmol/L Potassium 4.1 (3.5-5.1) mmol/L Chloride 106 (98-107) mmol/L Carbon Dioxide 23 (22-30) mmol/L BUN 15 (9-20) mg/dL Creatinine 0.94 (0.66-1.25) mg/dL Glucose 186 H (74-99) mg/dL Calcium 9.4 (8.4-10.2) mg/dL AST 20 (17-59) U/L ALT 18 (4-49) U/L Alkaline Phosphatase 99 (38-126) U/L Total Protein 7.6 (6.3-8.2) g/dL Albumin 4.5 (3.5-5.0) g/dL Current Medications Generic Name Dose Route Start Last Admin Trade Name Freq PRN Reason Stop Dose Admin Heparin Sodium (Porcine) 0 unit 11/02/21 14:50 11/03/21 03:07 Heparin Sodium 1,000 Un/Ml (10ml Vl) IV 3,075 unit PER PROTOCOL PRN Administration Low PTT Protocol Diltiazem HCl 125 mg/ Sodium 125 mls @ 5 mls/hr 11/02/21 15:00 11/02/21 14:59 Chloride IV 5 mg/hr .Q24H JACLYN 5 mls/hr Administration 5 MG/HR Heparin Sodium/Sodium Chloride 250 mls @ 10 mls/hr 11/02/21 15:00 11/03/21 03:06 25,000 unit/ Sodium Chloride IV 13.105 units/kg/hr .Q24H JACLYN 16.169 mls/hr Titration Protocol 8.105 UNITS/KG/HR Insulin Aspart 0 unit 11/02/21 21:00 11/03/21 06:11 Insulin Aspart (Novolog) 100 Unit/Ml Vial SQ 1 unit ACHS JACLYN Administration Protocol Naloxone HCl 0.2 mg 11/02/21 16:14 Naloxone 0.4 Mg/Ml 1 Ml Vial IV Q2M PRN Opioid Reversal Ondansetron HCl 4 mg 11/02/21 16:14 Ondansetron 4 Mg/2 Ml Vial IVP Q8HR PRN Nausea And Vomiting Intake and Output 11/02/21 11/03/21 11/03/21 22:59 06:59 14:59 Intake Total 302.667 77.867 Balance 302.667 77.867 Intake: Intake, IV Titration 62.667 77.867 Amount Heparin Sod,Pork in 0.45% 62.667 77.867 NaCl 25,000 unit In 0.45 % NaCl 1 250ml.bag @ 8. 105 UNITS/KG/HR 10 mls/hr IV .Q24H [facility] Rx#: [id number] Oral 240 Other: Voiding Method Toilet Toilet Urinal Urinal # Voids 1 Weight 123.377 kg 11/02/21 14:38 11/02/21 14:38
[2021-11-03] MEDS: ATORVASTATIN 40 MG TAB PO SCH (08:43)
[2021-11-03] MEDS: lisinopriL 5 MG TAB PO SCH ×2 (08:43→21:09)
[2021-11-03] MEDS: METOPROLOL TARTRATE 50 MG TAB PO SCH ×2 (08:43→21:10)
[2021-11-03 12:04] LABS: Glucose,Whole Blood 176 mg/dL (70-110)
--- NOTE | 2021-11-03 12:15 | CA ---
Transthoracic Echo Report Name: Johnny Kohli Age: 51 Gender: M : 1970 Exam Date: 11/03/2021 11:37 Exam Location: [facility] Ht (in): 76 Wt (lb): 272 Ordering Physician: Meri Swanson MD ([id number]) Attending/Referring Phys: Residential Counselor Alisson Burton, LIZ Procedure CPT: Indications: afib Cardiac Hx: Technical Quality: Fair Contrast 1: Total Dose (mL): Contrast 2: Total Dose (mL): MEASUREMENTS (Male / Female) Normal Values 2D ECHO LV Diastolic Diameter PLAX 3.6 cm 4.2 - 5.9 / 3.9 - 5.3 cm LV Systolic Diameter PLAX 2.7 cm IVS Diastolic Thickness 1.8 cm 0.6 - 1.0 / 0.6 - 0.9 cm LVPW Diastolic Thickness 1.5 cm 0.6 - 1.0 / 0.6 - 0.9 cm LV Relative Wall Thickness 0.9 M-MODE Aortic Root Diameter MM 3.2 cm LA Systolic Diameter MM 3.0 cm LA Ao Ratio MM 0.9 MV E Point Septal Separation 0.7 cm AV Cusp Separation MM 1.8 cm DOPPLER AV Peak Velocity 64.0 cm/s AV Peak Gradient 1.6 mmHg MR Peak Velocity 81.1 cm/s MR Peak Gradient 2.6 mmHg TR Peak Velocity 202.4 cm/s TR Peak Gradient 16.4 mmHg Right Ventricular Systolic Press 21.4 mmHg FINDINGS Left Ventricle left ventricular cavity size normal. verely increased septal wall thickness. Left ventricular ejection fraction is estimated at 40-45_ %. Basal inferior and Basal Anterior are hypokinetic. Pt in AFIB Right Ventricle The right ventricle is normal in size and function. Right Atrium The right atrium is normal in size. Left Atrium The left atrium is normal in size. Mitral Valve Structurally normal mitral valve without significant stenosis or prolapse. There is a trace of mitral regurgitation. Aortic Valve Structurally normal aortic valve without significant sclerosis or stenosis. There is no aortic regurgitation. Tricuspid Valve Structurally normal tricuspid valve without significant stenosis. Pulmonary artery systolic pressure is normal. Trace tricuspid regurgitation. Pulmonic Valve Structurally normal pulmonic valve without significant stenosis. There is no pulmonic regurgitation. Pericardium Normal pericardium without effusion. Aorta Normal aortic root dimension. CONCLUSIONS Ischemic cardiomyopathy with moderate LV systolic dysfunction with an ejection fraction of 40% Trace mitral regurgitation Previewed by: Dr. Robert Wynn MD (Electronically Signed) Final Date: 03 November 2021 12:14
[2021-11-03 14:48] LABS: Chol/HDL Ratio 4.45 Ratio
--- NOTE | 2021-11-03 15:05 | P.HPIM ---
History of Present Illness H&P Date: 11/03/21 HISTORY OF PRESENT ILLNESS This is a 51-year-old male patient with past medical history of paroxysmal atrial fibrillation status post cardioversion, cardiomyopathy with EF of 20-25%, chronic systolic heart failure, non-ST elevated myocardial infarction status post 2 stents in the LAD and 2020, diabetes mellitus type 2, obesity. Patient presented to the hospital due to palpitations. He has been off his medications as he states he is not able to afford some of his meds but also has not followed up since March with a physician. He states he has palpitations, diaphoresis and mild chest discomfort is intermittent. Patient was found to be afebrile, heart rate initially in the 60s, blood pressure 160/83 and pulse ox 100%. EKG atrial fibrillation with RVR WBC 11, hemoglobin 18.5, platelet count 281. Sodium 139, potassium 4.1, chloride 106, CO2 23, BUN 15 and creatinine 0.94. Blood sugar 186. INR 1.3. Troponin negative 1. TSH 2.310. Hemoglobin A1c 7.1. Chest x-ray reveals no acute cardiopulmonary disease. No adverse change. Echocardiogram reveals ischemic cardiomyopathy with moderate LV systolic dysfunction and EF of 40%, trace mitral regurgitation. REVIEW OF SYSTEMS Constitutional: No fever, no chills, no night sweats. Reports sweats. No weight change. No weakness, fatigue or lethargy. No daytime sleepiness. EENT: No headache. No blurred vision or double vision, no loss of vision. No loss of Hearing, no ringing in the ears, no dizziness. No nasal drainage or congestion. No epistaxis. No sore throat. Lungs: No shortness of breath, cough, no sputum production. No wheezing. Cardiovascular: Reports intermittent chest discomfort, no lower extremity edema. Reports palpitations. No paroxysmal nocturnal dyspnea. No orthopnea. No lightheadedness or dizziness. No syncopal episodes. Abdominal: No abdominal pain. No nausea, vomiting. No diarrhea. No constipation. No bloody or tarry stools. No loss of appetite. Genitourinary: No dysuria, increased frequency, urgency. No urinary retention. Musculoskeletal: No myalgias. No muscle weakness, no gait dysfunction, no frequent falls. No back pain. No neck pain. Integumentary: No wounds, no lesions. No rash or pruritus. No unusual bruising. No change in hair or nails. Neurologic: No aphasia. No facial droop. No change in mentation. No head injury. No headache. No paralysis. No paresthesia. Psychiatric: No depression. No anxiety. No mood swings. Endocrine: No abnormal blood sugars. No weight change. No excessive sweating or thirst. No cold intolerance. SOCIAL HISTORY Patient has been a smoker since he was 16 years old. He usually smokes 1-1/2 packs per day but has cut down to half a pack per day. He denies any alcohol use. He denies use of the CPAP. 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 FAMILY HISTORY Father at age 71 from a brain aneurysm. Mother at age 67 from pancreatic cancer. Patient has one sister and she is living with no major medical problems. Patient has one daughter with no major medical problems.. PHYSICAL EXAMINATION Gen: This is a 51-year-old male. He said he had adjuvant bed and appears to be comfortable and in no acute distress. HEENT: Head is atraumatic, normocephalic. Pupils equal, round. Sclerae is anicteric. NECK: Supple. No JVD. No lymphadenopathy. No thyromegaly. LUNGS: Clear to auscultation. No wheezes or rhonchi. No intercostal retractions. HEART: Irregular rate and rhythm. No murmur. Heart rate controlled. ABDOMEN: Soft. Bowel sounds are present. No masses. No tenderness. EXTREMITIES: No pedal edema. No calf tenderness. NEUROLOGICAL: Patient is awake, alert and oriented x3. Cranial nerves 2 through 12 are grossly intact. ASSESSMENT AND PLAN 1. Paroxysmal atrial fibrillation presented with RVR. Cardiology is waiting on echocardiogram and we'll make a decision regarding repeat cardioversion. Patient started on Cardizem drip, heparin drip and transitioned to Lopressor 50 mg twice daily and Xarelto 20 mg daily. 2. History of atrial flutter status post ablation and cardioversion. Continue as in #1. 3. Ischemic cardiomyopathy with improvement of EF. 4. History of non-ST elevated myocardial infarction in 2 stents in the LAD. 5. Diabetes mellitus type 2 with A1c 7.1. Patient will be started on Tradjenta 5 mg daily and NovoLog scale before meals and at bedtime. 6. GI prophylaxis. Protonix. 7. DVT prophylaxis. Xarelto. Patient will be admitted to the hospital for a minimum of 2 night stay. DISCHARGE PLAN home. Impression and plan of care have been directed as dictated by the signing physi cian. Carly Wilson nurse practitioner acting as scribe for signing physician. Past Medical History Past Medical History: Atrial Fibrillation, Diabetes Mellitus, Hyperlipidemia, Hypertension Additional Past Medical History / Comment(s): Echo 11/20/19 EF 20-25% History of Any Multi-Drug Resistant Organisms: None Reported Past Surgical History: Heart Catheterization With Stent Additional Past Surgical History / Comment(s): LAD stent X 2 on 11/17/19 Past Anesthesia/Blood Transfusion Reactions: No Reported Reaction Date of Last Stent Placement:: 11/17/19 Past Psychological History: No Psychological Hx Reported Smoking Status: Current every day smoker Past Alcohol Use History: None Reported Additional Past Alcohol Use History / Comment(s): SMOKING < 1/2 PPD SINCE AGE 15 Past Drug Use History: None Reported - Past Family History Mother Family Medical History: Cancer Medications and Allergies Home Medications Medication Instructions Recorded Confirmed Type hydrALAZINE HCL [Apresoline] 10 mg PO DIRECTED 11/02/21 11/02/21 History Allergies Allergy/AdvReac Type Severity Reaction Status Date / Time bee venom protein (honey bee) Allergy Anaphylaxis Verified 11/02/21 16:33 shellfish derived Allergy Anaphylaxis Verified 11/02/21 16:33 Physical Exam Vitals: Vital Signs Temp Pulse Pulse Resp BP BP Pulse Ox 11/03/21 08:00 98.2 F 74 16 139/93 97 11/03/21 04:00 75 16 144/88 99 11/03/21 00:00 98.5 F 71 13 129/89 96 11/02/21 20:00 98.2 F 71 15 135/83 97 11/02/21 18:24 97.4 F L 104 H 16 128/84 98 11/02/21 16:42 115 H 16 134/89 98 11/02/21 16:41 97.8 F 75 16 131/88 98 11/02/21 16:22 116 H 16 11/02/21 15:22 110 H 18 134/89 11/02/21 14:15 96.9 F L 67 18 160/83 100 Intake and Output 06/26/22 06/27/22 06/27/22 22:59 06:59 14:59 Intake Total 302.667 77.867 Balance 302.667 77.867 Intake: Intake, IV Titration 62.667 77.867 Amount Heparin Sod,Pork in 0.45% 62.667 77.867 NaCl 25,000 unit In 0.45 % NaCl 1 250ml.bag @ 8. 105 UNITS/KG/HR 10 mls/hr IV .Q24H [facility] Rx#: [id number] Oral 240 Other: Voiding Method Toilet Toilet Urinal Urinal # Voids 1 Weight 123.377 kg Results CBC & Chem 7: 11/02/21 14:38 11/02/21 14:38 Labs: Abnormal Lab Results - Last 24 Hours (Table) 11/02/21 11/02/21 11/02/21 Range/Units 14:38 14:38 14:38 WBC 11.0 H (3.8-10.6) k/uL RBC 6.12 H (4.30-5.90) m/uL Hgb 18.5 H (13.0-17.5) gm/dL Hct 53.4 H (39.0-53.0) % PT 13.5 H (9.0-12.0) sec INR 1.3 H (<1.2) APTT (22.0-30.0) sec Glucose 186 H (74-99) mg/dL POC Glucose (mg/dL) (70-110) mg/dL 11/02/21 11/02/21 11/03/21 Range/Units 20:24 20:29 02:32 WBC (3.8-10.6) k/uL RBC (4.30-5.90) m/uL Hgb (13.0-17.5) gm/dL Hct (39.0-53.0) % PT 12.9 H (9.0-12.0) sec INR 1.2 H (<1.2) APTT 36.4 H (22.0-30.0) sec Glucose (74-99) mg/dL POC Glucose (mg/dL) 161 H (70-110) mg/dL 11/03/21 Range/Units 06:00 WBC (3.8-10.6) k/uL RBC (4.30-5.90) m/uL Hgb (13.0-17.5) gm/dL Hct (39.0-53.0) % PT (9.0-12.0) sec INR (<1.2) APTT (22.0-30.0) sec Glucose (74-99) mg/dL POC Glucose (mg/dL) 135 H (70-110) mg/dL Thrombosis Risk Factor Assmnt - Choose All That Apply Each Factor Represents 1 point: Age 41-60 years, Obesity (BMI >25) Other Risk Factors: No Thrombosis Risk Factor Assessment Total Risk Factor Score: 2 Thrombosis Risk Factor Assessment Level: Low Risk
[2021-11-03] MEDS: LINAGLIPTIN 5 MG TABLET PO SCH (15:45)
[2021-11-03 16:43] LABS: Glucose,Whole Blood 185 mg/dL (70-110)
[2021-11-03] MEDS: RIVAROXABAN 20 MG TAB PO SCH (17:25)
[2021-11-03 20:56] LABS: Glucose,Whole Blood 160 mg/dL (70-110)
[2021-11-04 06:09] LABS: Glucose,Whole Blood 134 mg/dL (70-110)
[2021-11-04] MEDS: INSULIN ASPART (NovoLOG) 100 UNIT/ML VIAL SQ SCH ×3 (06:33→17:32)
[2021-11-04] MEDS ORDERED: PANTOPRAZOLE 40 MG TABLET PO SCH (07:30)
[2021-11-04] MEDS: ATORVASTATIN 40 MG TAB PO SCH (08:58)
[2021-11-04] MEDS: LINAGLIPTIN 5 MG TABLET PO SCH (08:58)
[2021-11-04] MEDS: METOPROLOL TARTRATE 50 MG TAB PO SCH (08:58)
[2021-11-04] MEDS: lisinopriL 5 MG TAB PO SCH (08:58)
[2021-11-04 10:21] LABS: African American GFR (CKD) >90 (>60 ml/min/1.73 sqM); Anion Gap 11 mmol/L; Blood Urea Nitrogen 17 mg/dL (9-20); Calcium 9.2 mg/dL (8.4-10.2); Carbon Dioxide 26 mmol/L (22-30); Chloride 102 mmol/L (98-107); Glucose 178 mg/dL (74-99); Non-African American GFR(CKD) >90 (>60 ml/min/1.73 sqM); Sodium 139 mmol/L (137-145)
[2021-11-04 11:54] VITALS: BP 135/91; PULSE 65; TEMP 98
[2021-11-04 11:54] LABS: Glucose,Whole Blood 146 mg/dL (70-110)
--- NOTE | 2021-11-04 12:04 | P.DS ---
Providers Date of admission: 11/02/21 16:35 Expected date of discharge: 11/04/21 Attending physician: Clarke Maxwell Consults: 11/02/21 16:14 Consult Physician Urgent Consulting Provider: Gigi Ricketts Consult Reason/Comments: afib rvr Do you want consulting provider notified?: Yes Primary care physician: Jessica Weber MD Hospital Course: HISTORY OF PRESENT ILLNESS This is a 51-year-old male patient with past medical history of paroxysmal atrial fibrillation status post cardioversion, cardiomyopathy with EF of 20-25%, chronic systolic heart failure, non-ST elevated myocardial infarction status post 2 stents in the LAD and 2020, diabetes mellitus type 2, obesity. Patient presented to the hospital due to palpitations. He has been off his medications as he states he is not able to afford some of his meds but also has not followed up since March with a physician. He states he has palpitations, diaphoresis and mild chest discomfort is intermittent. Patient was found to be afebrile, heart rate initially in the 60s, blood pressure 160/83 and pulse ox 100%. EKG atrial fibrillation with RVR WBC 11, hemoglobin 18.5, platelet count 281. Sodium 139, potassium 4.1, chloride 106, CO2 23, BUN 15 and creatinine 0.94. Blood sugar 186. INR 1.3. Troponin negative 1. TSH 2.310. Hemoglobin A1c 7.1. Chest x-ray reveals no acute cardiopulmonary disease. No adverse change. Echocardiogram reveals ischemic cardiomyopathy with moderate LV systolic dysfunction and EF of 40%, trace mitral regurgitation. 11/04: Patient remains in atrial fibrillation but rate is controlled. Heart rate running from 56-95 this morning. He has been afebrile, blood pressure 135/91, pulse ox 90% on room air. Capillary blood glucose are between 134 and 160. The etiology is cleared the patient to go home later today if he is feeling well. Patient is anxious to be discharged. We will transition Tradjenta to metformin due to the patient's financial concerns. Patient will be discharged today in stable condition. DISCHARGE DIAGNOSES 1. Paroxysmal atrial fibrillation presented with RVR. 2. History of atrial flutter status post ablation and cardioversion. 3. Ischemic cardiomyopathy with improvement of EF. 4. History of non-ST elevated myocardial infarction in 2 stents in the LAD. 5. Diabetes mellitus type 2 with A1c 7.1. DISCHARGE PLAN home. Greater than 35 minutes was utilized and coordinating patient's discharge. Impression and plan of care have been directed as dictated by the signing p lorelei. Carly Wilson nurse practitioner acting as scribe for signing physician. Patient Condition at Discharge: Good Plan - Discharge Summary Discharge Rx Participant: No New Discharge Prescriptions: New Rivaroxaban [Xarelto] 20 mg PO W/SUPPER #30 tab lisinopriL [Zestril] 5 mg PO BID #60 tab metFORMIN HCL [Glucophage] 1,000 mg PO BID #60 tab Atorvastatin [Lipitor] 40 mg PO DAILY #30 tab Metoprolol Tartrate [Lopressor] 50 mg PO BID #60 tab Discontinued hydrALAZINE HCL [Apresoline] 10 mg PO DIRECTED Discharge Medication List Atorvastatin [Lipitor] 40 mg PO DAILY #30 tab 11/04/21 [Rx] Metoprolol Tartrate [Lopressor] 50 mg PO BID #60 tab 11/04/21 [Rx] Rivaroxaban [Xarelto] 20 mg PO W/SUPPER #30 tab 11/04/21 [Rx] lisinopriL [Zestril] 5 mg PO BID #60 tab 11/04/21 [Rx] metFORMIN HCL [Glucophage] 1,000 mg PO BID #60 tab 11/04/21 [Rx] Follow up Appointment(s)/Referral(s): Meri Swanson MD [STAFF PHYSICIAN] - 2 Weeks Clarke Maxwell MD [Family Provider] - 1 Week Discharge Disposition: HOME SELF-CARE
--- NOTE | 2021-11-04 13:21 | P.PN ---
Subjective The patient is a 51-year-old male with a prior history of atrial fibrillation s/p cardioversion in 2019, cardiomyopathy, coronary artery disease s/p PCI LAD in 11/[address] JUSTINE Gomez, hypertension, dyslipidemia, type 2 diabetes, chronic nicotine dependence. He has not follow up in the office since May 2020. He stopped all his medications because of cost. He was on anticoagulation in the past. Patient presented with palpitation started 3 days ago associated with some dyspnea. In the emergency room he was noted to be in atrial fibrillation with rapid ventricle response. Patient seen and examined at bedside, no acute distress. He is feeling better, no complaints. No shortness of breath, chest pain or palpitations. He continues to be in atrial flutter fibrillation controlled ventricular rate. Echocardiogram revealed EF of 40-45%. He is currently maintained on atorvastatin 40 mg daily, lisinopril 5 mg BID, metoprolol tartrate 50mg BID. Anticoagulated on Xarelto 20mg daily GENERAL: Well-appearing, well-nourished and in no acute distress. NECK: Supple without JVD or thyromegaly. LUNGS: Breath sounds clear to auscultation bilaterally. Respiration equal and unlabored. No wheezes, rales or rhonchi. HEART: Irregular rate and rhythm without murmurs, rubs or gallops. S1 and S2 heard. EXTREMITIES: Normal range of motion, no edema. No clubbing or cyanosis. Peripheral pulses intact. ASSESSMENT Paroxysmal atrial fibrillation with rapid ventricular response, not anticoagulated. [id number] score 4, Started on Xarelto History of atrial flutter ablation status post cardioversion in 2019 Prior history of cardiomyopathy improved post cardioversion History of CAD and stenting of the LAD in 2019 History of hypertension History of diabetes History of smoking Noncompliance PLAN: Patient continues to be in atrial fibrillation with controlled ventricular rate. Continue Xarelto 20mg daily Continue atorvastatin 40 mg daily, lisinopril 5 mg BID, metoprolol tartrate 50mg BID Discussed with the patient the risk of stroke and thromboembolic phenomena Discussed importance of medication compliance with the patient Smoking cessation discussed and highly recommended Follow up with Dr. Swanson in 2 weeks in the office, cardioversion will be discussed as an outpatient. From cardiology perspective, patient stable to be discharged home. Nurse practitioner note has been reviewed by physician. Signing provider agrees with the documented findings, assessment, and plan of care. Objective - Vital Signs Vital signs: Vital Signs Temp 98.0 F 11/04/21 11:53 Pulse 65 11/04/21 11:53 Resp 14 11/04/21 11:53 BP 135/91 11/04/21 11:53 Pulse Ox 98 11/04/21 11:53 FiO2 Intake & Output 11/03/21 11/04/21 11/04/21 18:59 06:59 18:59 Intake Total 530 180 Balance 530 180 Intake: Oral 530 180 Other: Voiding Method Toilet Toilet Toilet Urinal Urinal # Voids 3 2 1 # Bowel Movements 1 1 - Labs CBC & Chem 7: 11/02/21 14:38 11/04/21 09:26 Labs: Abnormal Lab Results - Last 24 Hours (Table) 11/03/21 11/03/21 11/03/21 Range/Units 08:52 08:52 16:32 Glucose (74-99) mg/dL POC Glucose (mg/dL) 185 H (70-110) mg/dL Hemoglobin A1c 7.1 H (0.0-6.0) % Triglycerides 173.00 H (0.00-149.00) mg/dL HDL Cholesterol 36.40 L (40.00-60.00) mg/dL 11/03/21 11/04/21 11/04/21 Range/Units 20:54 06:02 09:26 Glucose 178 H (74-99) mg/dL POC Glucose (mg/dL) 160 H 134 H (70-110) mg/dL Hemoglobin A1c (0.0-6.0) % Triglycerides (0.00-149.00) mg/dL HDL Cholesterol (40.00-60.00) mg/dL 11/04/21 Range/Units 11:51 Glucose (74-99) mg/dL POC Glucose (mg/dL) 146 H (70-110) mg/dL Hemoglobin A1c (0.0-6.0) % Triglycerides (0.00-149.00) mg/dL HDL Cholesterol (40.00-60.00) mg/dL
[2021-11-04 15:50] VITALS: RESP 16
[2021-11-04 17:11] LABS: Glucose,Whole Blood 161 mg/dL (70-110)
[2021-11-04] MEDS: RIVAROXABAN 20 MG TAB PO SCH (17:33)
== END 2021-11-04 17:42 | disposition home or self-care (01) | DRG 309 ==
LOC: EC 14:13 → 3SCARD 16:35
PROVIDERS: ADMIT Internal Medicine Geriatric Medicine; ATTEND Internal Medicine Geriatric Medicine
DX: I48.0 Paroxysmal atrial fibrillation (principal); I50.22 Chronic systolic (congestive) heart failure; E11.65 Type 2 diabetes mellitus with hyperglycemia; I48.92 Unspecified atrial flutter; E78.5 Hyperlipidemia, unspecified; F17.210 Nicotine dependence, cigarettes, uncomplicated; I11.0 Hypertensive heart disease with heart failure; I25.10 Atherosclerotic heart disease of native coronary artery without angina pectoris; I25.5 Ischemic cardiomyopathy; Z91.19 Patient's noncompliance with other medical treatment and regimen; T45.516A Underdosing of anticoagulants, initial encounter; T38.3X6A Underdosing of insulin and oral hypoglycemic [antidiabetic] drugs, initial encounter; Z91.120 Patient's intentional underdosing of medication regimen due to financial hardship; E66.9 Obesity, unspecified; Z68.31 Body mass index [BMI] 31.0-31.9, adult; I34.0 Nonrheumatic mitral (valve) insufficiency; Z91.030 Bee allergy status; Z91.013 Allergy to seafood; Z71.6 Tobacco abuse counseling; Z91.14 Patient's other noncompliance with medication regimen; I25.2 Old myocardial infarction; Z95.5 Presence of coronary angioplasty implant and graft; Z79.82 Long term (current) use of aspirin; Z79.01 Long term (current) use of anticoagulants; Z79.02 Long term (current) use of antithrombotics/antiplatelets; Z79.84 Long term (current) use of oral hypoglycemic drugs; Z79.899 Other long term (current) drug therapy; Z80.0 Family history of malignant neoplasm of digestive organs; Z82.49 Family history of ischemic heart disease and other diseases of the circulatory system
CPT/HCPCS: 36415; 71046; 80048; 80053; 80061; 83036; 83735; 84443; 84484; 85025; 85610; 85730; 93306; 96365; 96366; 96375; 99291

== ENCOUNTER 2022-05-28 22:04 | Inpatient (IN) | payer OTHER ==
[2022-05-28] MEDS ORDERED: DILTIAZEM 5 MG/ML 5 ML VIAL IVP STA (22:34)
[2022-05-28] MEDS ORDERED: ASPIRIN 81 MG PO STA (22:34)
[2022-05-28] MEDS ORDERED: DILTIAZEM 125 MG in SODIUM CHLORIDE 0.9% 100 ML IV SCH ×2 (22:45→22:53)
[2022-05-28 22:53] LABS: Basophils # (A) 0.1 k/uL (0-0.2); Basophils % (A) 1 %; Eosinophils # (A) 0.3 k/uL (0-0.7); Eosinophils % (A) 3 %; HCT 50.3 % (39.0-53.0); Lymphocytes # (A) 3.1 k/uL (1.0-4.8); Lymphocytes % (A) 29 %; MCH 30.1 pg (25.0-35.0); MCHC 33.9 g/dL (31.0-37.0); Mean Platelet Volume 8.1; Monocytes # (A) 0.5 k/uL (0-1.0); Monocytes % (A) 5 %; Neutrophils # (A) 6.5 k/uL (1.3-7.7); Neutrophils % (A) 61 %; Platelet Count 213 k/uL (150-450); RBC 5.65 m/uL (4.30-5.90); RDW 12.7 % (11.5-15.5); WBC 10.7 k/uL (3.8-10.6)
[2022-05-28 23:02] LABS: ALT 50 U/L (4-49); AST 43 U/L (17-59); African American GFR (CKD) >90 (>60 ml/min/1.73 sqM); Albumin 4.6 g/dL (3.5-5.0); Alkaline Phosphatase 110 U/L (38-126); Anion Gap 10 mmol/L; Blood Urea Nitrogen 15 mg/dL (9-20); Calcium 9.2 mg/dL (8.4-10.2); Carbon Dioxide 24 mmol/L (22-30); Chloride 105 mmol/L (98-107); Glucose 186 mg/dL (74-99); Non-African American GFR(CKD) >90 (>60 ml/min/1.73 sqM); Sodium 139 mmol/L (137-145); Total Protein 7.8 g/dL (6.3-8.2)
--- NOTE | 2022-05-28 23:10 | ED ---
General Adult HPI - General Chief complaint: Shortness of Breath Stated complaint: SOB, leg swelling Time Seen by Provider: 05/28/22 22:16 Source: patient, RN notes reviewed, old records reviewed Mode of arrival: ambulatory Limitations: no limitations - History of Present Illness Initial comments: Patient is a 51-year-old male with past mental history remarkable for atrial fibrillation, cardiac stents, has been noncompliant with all medications for mu ltiple months. States he just did not have the money to take them. This includes his Xeralto, as well as cardiac meds like metoprolol. States for multiple weeks to months he has been feeling intermittently short of breath. Somewhat worse with exertion. Also has noticed worsening bilateral lower extremity edema, right worse than left. Endorses PND. Denies orthopnea. Endorses exertional dyspnea. Denies any history of heart failure. Was not previously prescribed a diuretic. Denies any head pain, weakness and denies any cough. Denies any sick contacts. Denies any abdominal pain, nausea, vomiting. Has no other acute complaints at this time. Denies any history of blood clots. Presents for further evaluation at this time. - Related Data Previous Rx's Medication Instructions Recorded Atorvastatin [Lipitor] 40 mg PO DAILY #30 tab 11/04/21 Metoprolol Tartrate [Lopressor] 50 mg PO BID #60 tab 11/04/21 Rivaroxaban [Xarelto] 20 mg PO W/SUPPER #30 tab 11/04/21 lisinopriL [Zestril] 5 mg PO BID #60 tab 11/04/21 metFORMIN HCL [Glucophage] 1,000 mg PO BID #60 tab 11/04/21 Allergies Allergy/AdvReac Type Severity Reaction Status Date / Time bee venom protein (honey bee) Allergy Anaphylaxis Verified 05/28/22 22:13 shellfish derived Allergy Anaphylaxis Verified 05/28/22 22:13 Review of Systems ROS Statement: Those systems with pertinent positive or pertinent negative responses have been documented in the HPI. Review of Systems: CONST: Denies fever EYES: Denies blurry vision ENT: Denies nasal congestion C/V: Denies Chest pain RESP: Endorses shortness of breath GI: Denies abdominal pain : Denies dysuria SKIN: Denies rash. MSK: Endorses leg swelling NEURO: Denies headache ROS Other: All systems not noted in ROS Statement are negative. Past Medical History Past Medical History: Atrial Fibrillation, Diabetes Mellitus, Hyperlipidemia, Hypertension Additional Past Medical History / Comment(s): Echo 11/20/19 EF 20-25% History of Any Multi-Drug Resistant Organisms: None Reported Past Surgical History: Heart Catheterization With Stent Additional Past Surgical History / Comment(s): LAD stent X 2 on 11/17/19 Past Anesthesia/Blood Transfusion Reactions: No Reported Reaction Date of Last Stent Placement:: 11/17/19 Past Psychological History: No Psychological Hx Reported Smoking Status: Current every day smoker Past Alcohol Use History: None Reported Past Drug Use History: None Reported - Past Family History Mother Family Medical History: Cancer General Exam - General Exam Comments Initial Comments: General: Appears in no acute distress. HEAD: Normal with no signs of head trauma. EYES: PERRLA, EOMI, conjunctiva normal, no discharge. ENT: Hearing grossly intact, normal oropharynx. RESPIRATORY: Clear breath sounds bilaterally. No wheezes, rales, or rhonchi. No respiratory distress. No hypoxia. C/V: Irregular rate and rhythm. Tachycardic. S1 and S2 auscultated. Right lower extremity is more edematous than the left lower extremity and both are showing signs pitting edema. Peripheral pulses 2+ and intact throughout. ABD: Abd is soft, nontender, nondistended EXT: Normal range of motion, no obvious deformity SKIN: No rashes or lesions observed on exposed skin. NEURO: Alert and oriented 4. Limitations: no limitations Course Vital Signs 05/28/22 05/28/22 05/28/22 22:13 22:45 22:57 Temperature 98 F Pulse Rate 74 129 H 107 H Pulse Rate [ Staff Analyst ] Respiratory 18 18 18 Rate Blood Pressure 163/114 137/96 O2 Sat by Pulse 98 98 Oximetry 05/28/22 05/28/22 05/29/22 23:00 23:16 00:00 Temperature Pulse Rate 104 H 109 H Pulse Rate [ 130 H Staff Analyst ] Respiratory 18 12 Rate Blood Pressure 137/95 126/96 O2 Sat by Pulse Oximetry 05/29/22 05/29/22 00:17 01:00 Temperature Pulse Rate 93 97 Pulse Rate [ Staff Analyst ] Respiratory 18 11 L Rate Blood Pressure 132/87 127/98 O2 Sat by Pulse 98 Oximetry Medical Decision Making - Medical Decision Making Based on the patient's presentation and physical exam, he has a history of atrial fibrillation and currently he is in A. fib with RVR and is noncompliant with medications cleaned blood thinners. Has lower extremity edema that is worsening. Is in A. fib with RVR currently. Right lower extremity muscles on the left lower extremity. I'm concerned for cardiac etiology for his current symptoms including breakthrough poorly controlled A. fib but cannot rule out PE or DVT at this time. He has obvious signs of DVT, therefore we will obtain bilateral lower extremity duplexes as well as a CT angiogram of the chest. He was in agreement this plan. Vital signs within acceptable limits except for his tachycardia. No respiratory distress. He was given 324 millions of aspirin. He was started on a Cardizem drip after receiving a push of Cardizem. Patient was in agreement this plan. Patient's EKG showed A. fib with RVR. Patient's bilateral lower extremity duplexes showed no evidence of DVT. CT PE was negative for acute pulmonary embolism. Laboratory studies were remarkable for a indeterminate troponin of 0.024. BNP is slightly elevated to 3490. Patient's Covid, flu, RSV negative. I have treated the patient. He'll be given a dose of Lasix for his leg edema. Patient was placed on a Cardizem drip and seems to be responding well his heart rate has improved to less than 110 bpm. He'll be started on IV heparin drip. He was in agreement this plan. I discussed with him I would like to admit him to the hospital for cardiology evaluation. He was in agreement with this plan. Echo was ordered. Cardiology was consulted. I spoke with the admitting team, city call Dr. Chin who accepted the admission. Patient was therefore admitted in stable condition. Was pt. sent in by a medical professional or institution (, PA, [employer], urgent care, hospital, or [facility]...) When possible be specific @ -No Did you speak to anyone other than the patient for history (EMS, parent, family, police, friend...)? What history was obtained from this source @ -No Did you review nursing and triage notes (agree or disagree)? Why? @ -I reviewed and agree with nursing and triage notes Were old charts reviewed (outside hosp., previous admission, EMS record, old EKG, old radiological studies, urgent care reports/EKG's, [facility] records)? Report findings @ -Yes, old chart, EKG was reviewed. Differential Diagnosis (chest pain, altered mental status, abdominal pain women, abdominal pain men, vaginal bleeding, weakness, fever, dyspnea, syncope, headache, dizziness, GI bleed, back pain, seizure, CVA, palpatations, mental health)? @ -Differential Dyspnea: Coronary syndrome, arrhythmia, tamponade, asthma, COPD, pulmonary embolism, pneumonia, pneumothorax, pulmonary effusion, anaphylaxis, diabetic ketoacidosis, flailed chest, pulmonary contusion, diaphragmatic rupture, anemia, neuromuscular, this is not meant to be an all-inclusive list. EKG interpreted by me (3pts min.). @ -As above X-rays interpreted by me (1pt min.). @ -None done CT interpreted by me (1pt min.). @ -CT chest angiogram revealed no evidence of PE. U/S interpreted by me (1pt. min.). @ -Bilateral lower extremity venous duplex was negative. What testing was considered but not performed or refused? (CT, X-rays, U/S, labs)? Why? @ -None What meds were considered but not given or refused? Why? @ -None Did you discuss the management of the patient with other professionals (professionals i.e. , PA, [employer], lab, RT, psych nurse, vp digital marketing social media and crm, rn icu, teacher, eeo officer, child support case officer)? Give summary @ -No Was smoking cessation discussed for >3mins.? @ -No Was critical care preformed (if so, how long)? @ -Yes. 35 minutes. Were there social determinants of health that impacted care today? How? (Homelessness, low income, unemployed, alcoholism, drug addiction, transportat ion, low edu. Level, literacy, decrease access to med. care, [facility], rehab)? @ -No Was there de-escalation of care discussed even if they declined (Discuss DNR or withdrawal of care, Hospice)? DNR status @ -No What co-morbidities impacted this encounter? (DM, HTN, Smoking, COPD, CAD, Cancer, CVA, ARF, Chemo, Hep., AIDS, mental health diagnosis, sleep apnea, morbid obesity)? @ -Atrial fibrillation, medication noncompliance Was patient admitted / discharged? Hospital course, mention meds given and route, prescriptions, significant lab abnormalities, going to OR and other pertinent info. @ -Patient was admitted to the hospital. See above three-day course. Undiagnosed new problem with uncertain prognosis? @ -No Drug Therapy requiring intensive monitoring for toxicity (Heparin, Nitro, Insulin, Cardizem)? @ -No Were any procedures done? @ -No Diagnosis/symptom? @ -Atrial fibrillation with RVR Acute, or Chronic, or Acute on Chronic? @ -Acute on chronic Uncomplicated (without systemic symptoms) or Complicated (systemic symptoms)? @ -Complicated Side effects of treatment? @ -No Exacerbation, Progression, or Severe Exacerbation? @ -Exacerbation Poses a threat to life or bodily function? How? (Chest pain, USA, MS, pneumonia, PE, COPD, DKA, ARF, appy, cholecystitis, CVA, Diverticulitis, Homicidal, Suicidal, threat to staff... and all critical care pts) @ -Yes, if uncontrolled can lead to morbidity mortality. Diagnosis/symptom? @ -Medication noncompliance Acute, or Chronic, or Acute on Chronic? @ -Acute Uncomplicated (without systemic symptoms) or Complicated (systemic symptoms)? @ -Uncomplicated Side effects of treatment? @ -none Exacerbation, Progression, or Severe Exacerbation] @ -no Poses a threat to life or bodily function? @ -Yes, if not taking medications can result in significant morbidity mortality. Diagnosis/symptom? @ -Lower extremity edema Acute, or Chronic, or Acute on Chronic? @ -Chronic Uncomplicated (without systemic symptoms) or Complicated (systemic symptoms)? @ -Uncomplicated Side effects of treatment? @ -none Exacerbation, Progression, or Severe Exacerbation] @ -no Poses a threat to life or bodily function? @ -no - Lab Data Result diagrams: 05/28/22 22:37 05/28/22 22:37 Lab Results 05/28/22 05/28/22 05/28/22 Range/Units 22:37 22:37 22:37 WBC 10.7 H (3.8-10.6) k/uL RBC 5.65 (4.30-5.90) m/uL Hgb 17.0 (13.0-17.5) gm/dL Hct 50.3 (39.0-53.0) % MCV 89.0 (80.0-100.0) fL MCH 30.1 (25.0-35.0) pg MCHC 33.9 (31.0-37.0) g/dL RDW 12.7 (11.5-15.5) % Plt Count 213 (150-450) k/uL MPV 8.1 Neutrophils % 61 % Lymphocytes % 29 % Monocytes % 5 % Eosinophils % 3 % Basophils % 1 % Neutrophils # 6.5 (1.3-7.7) k/uL Lymphocytes # 3.1 (1.0-4.8) k/uL Monocytes # 0.5 (0-1.0) k/uL Eosinophils # 0.3 (0-0.7) k/uL Basophils # 0.1 (0-0.2) k/uL PT 12.4 H (9.0-12.0) sec INR 1.2 H (<1.2) APTT 25.4 (22.0-30.0) sec Sodium 139 (137-145) mmol/L Potassium 4.0 (3.5-5.1) mmol/L Chloride 105 (98-107) mmol/L Carbon Dioxide 24 (22-30) mmol/L Anion Gap 10 mmol/L BUN 15 (9-20) mg/dL Creatinine 0.85 (0.66-1.25) mg/dL Est GFR (CKD-EPI)AfAm >90 (>60 ml/min/1.73 sqM) Est GFR (CKD-EPI)NonAf >90 (>60 ml/min/1.73 sqM) Glucose 186 H (74-99) mg/dL Calcium 9.2 (8.4-10.2) mg/dL Total Bilirubin 1.0 (0.2-1.3) mg/dL AST 43 (17-59) U/L ALT 50 H (4-49) U/L Alkaline Phosphatase 110 (38-126) U/L Troponin I (0.000-0.034) ng/mL NT-Pro-B Natriuret Pep pg/mL Total Protein 7.8 (6.3-8.2) g/dL Albumin 4.6 (3.5-5.0) g/dL Influenza Type A (PCR) (Not Detectd) Influenza Type B (PCR) (Not Detectd) RSV (PCR) (Not Detectd) SARS-CoV-2 (PCR) (Not Detectd) 05/28/22 05/28/22 05/28/22 Range/Units 22:37 22:37 22:42 WBC (3.8-10.6) k/uL RBC (4.30-5.90) m/uL Hgb (13.0-17.5) gm/dL Hct (39.0-53.0) % MCV (80.0-100.0) fL MCH (25.0-35.0) pg MCHC (31.0-37.0) g/dL RDW (11.5-15.5) % Plt Count (150-450) k/uL MPV Neutrophils % % Lymphocytes % % Monocytes % % Eosinophils % % Basophils % % Neutrophils # (1.3-7.7) k/uL Lymphocytes # (1.0-4.8) k/uL Monocytes # (0-1.0) k/uL Eosinophils # (0-0.7) k/uL Basophils # (0-0.2) k/uL PT (9.0-12.0) sec INR (<1.2) APTT (22.0-30.0) sec Sodium (137-145) mmol/L Potassium (3.5-5.1) mmol/L Chloride (98-107) mmol/L Carbon Dioxide (22-30) mmol/L Anion Gap mmol/L BUN (9-20) mg/dL Creatinine (0.66-1.25) mg/dL Est GFR (CKD-EPI)AfAm (>60 ml/min/1.73 sqM) Est GFR (CKD-EPI)NonAf (>60 ml/min/1.73 sqM) Glucose (74-99) mg/dL Calcium (8.4-10.2) mg/dL Total Bilirubin (0.2-1.3) mg/dL AST (17-59) U/L ALT (4-49) U/L Alkaline Phosphatase (38-126) U/L Troponin I 0.024 (0.000-0.034) ng/mL NT-Pro-B Natriuret Pep 3490 pg/mL Total Protein (6.3-8.2) g/dL Albumin (3.5-5.0) g/dL Influenza Type A (PCR) Not Detected (Not Detectd) Influenza Type B (PCR) Not Detected (Not Detectd) RSV (PCR) Not Detected (Not Detectd) SARS-CoV-2 (PCR) Not Detected (Not Detectd) - EKG Data -: EKG Interpreted by Me EKG Comments: 12-lead Electrocardiogram Interpretation Note EKG was reviewed and interpreted by myself. 12-lead ECG performed at 2228 is interpreted by me as revealing atrial fibrillation with RVR at a rate of 137 beats per minute. Left axis deviation. QRS duration 101 ms, QTc is 375 ms.. There were no ST or T wave abnormalities to suggest myocardial ischemia or injury. R wave progression across the precordium was delayed. By my interpre tation this EKG is non-diagnostic for acute ischemia. Patient's A. fib with RVR. When compared with prior EKGs, appears similar morphology but in atrial fibrillation as March 2020. 12-lead Electrocardiogram Interpretation Note EKG was reviewed and interpreted by myself. 12-lead ECG performed at 0210 is interpreted by me as revealing atrial fibrillation at a rate of 92 beats per minute. Leroy is leftward deviated. QRS duration is 111 ms, QTc is 407 ms.. There were no acute ST or T wave abnormalities to suggest myocardial ischemia or injury. Isolated T-wave inversion in lead aVL. R wave progression across the precordium was delayed. By my interpretation this EKG is non-diagnostic for acute ischemia. When compared with EKG from earlier, patient is better rate control. Critical Care Time Critical Care Time: Yes Total Critical Care Time: 35 Critical Care Time: Upon my evaluation, this patient had a high probability of imminent or life-threatening deterioration due to atrial fibrillation with RVR, heparin initiation, which required my direct attention, intervention, and personal management. I have personally provided 35 minutes of critical care time exclusive of time spent on separately billable procedures. Time includes review of laboratory data, radiology results, discussion with consultants, and monitoring for potential decompensation. Interventions were performed as documented in my note. Disposition Clinical Impression: Atrial fibrillation with RVR, Noncompliance with medication regimen, Leg edema Disposition: ADMITTED IP TO THIS HOSP Condition: Stable Time of Disposition: 00:35
[2022-05-28 23:28] LABS: INR 1.2 (<1.2); Partial Thromboplastin Time 25.4 sec (22.0-30.0); Prothrombin Time 12.4 sec (9.0-12.0)
--- NOTE | 2022-05-28 23:45 | US ---
EXAMINATION TYPE: US venous doppler duplex LE DATE OF EXAM: 05/28/2022 10:37 PM COMPARISON: NONE CLINICAL HISTORY: eval for dvt. Edema bilateral legs, worse on the right for 1 week. Varicose veins SIDE PERFORMED: bilateral TECHNIQUE: The lower extremity deep venous system is examined utilizing real time linear array sonog sheila with graded compression, doppler sonography and color-flow sonography. VESSELS IMAGED: Common Femoral Vein Deep Femoral Vein Greater Saphenous Vein * Femoral Vein Popliteal Vein Small Saphenous Vein * Proximal Calf Veins (* superficial vessels) Right Leg: no evidence of DVT Left Leg: no evidence of DVT IMPRESSION: No sign of deep vein thrombosis in both legs.
--- NOTE | 2022-05-29 00:34 | CT ---
EXAMINATION TYPE: CT chest angio for PE DATE OF EXAM: 05/28/2022 COMPARISON: None HISTORY: dyspnea, r/o pe CT DLP: 1157 mGycm Automated exposure control for dose reduction was used. CONTRAST: Performed with IV Contrast, patient injected with 100 mL of Isovue 370. Images obtained from the thoracic inlet to the diaphragm with the IV contrast. There are 3-D post pro cessed images. The lungs are clear of consolidation. No pleural effusion. Heart size is fairly normal. No pericardia l effusion. There is no mediastinal adenopathy. There are no hilar masses. There are a few bronchial lymph nodes up to 1 cm. No evidence of filling defect in the pulmonary arteries. The thoracic aorta has normal size. No aneurysm. The thoracic spine is intact. No compression fracture. Sternum is intact. There is a single 3 cm calc ified gallstone. IMPRESSION: No evidence of pulmonary embolism. Solitary large gallstone.
[2022-05-29] MEDS ORDERED: HEPARIN SODIUM 1,000 UN/ML (10ML VL) IV ONE (00:36)
[2022-05-29] MEDS ORDERED: NALOXONE 0.4 MG/ML 1 ML VIAL IV PRN (00:50)
[2022-05-29] MEDS: HEPARIN SOD,PORK IN 0.45% NACL 25,000 UNIT in 0.45% NACL 1 250ML.BAG IV SCH ×3 (01:13→21:26)
[2022-05-29] MEDS ORDERED: FUROSEMIDE 10 MG/ML 4 ML VIAL IV STA (01:43)
[2022-05-29 02:54] LABS: Appearance,Urine Clear (Clear); Bilirubin,Urine Negative (Negative); Blood,Urine Negative (Negative); Color,Urine Yellow; Glucose,Urine (UA) Negative (Negative); Ketones,Urine Negative (Negative); Leukocyte Esterase,Urine Negative (Negative); Mucus,Urine Rare /hpf; Nitrite,Urine Negative (Negative); PH, Urine 5.5 (5.0-8.0); Protein,Urine 1+ (Negative); Specific Gravity,Urine 1.036 (1.001-1.035); Urobilinogen,Urine <2.0 mg/dL (<2.0)
[2022-05-29] MEDS: HEPARIN SODIUM 1,000 UN/ML (10ML VL) IV PRN (08:56)
[2022-05-29] MEDS ORDERED: METOPROLOL SUCCINATE (ER) 25 MG TAB.ER.24H PO SCH (11:45)
[2022-05-29 11:56] LABS: Glucose,Whole Blood 253 mg/dL (70-110)
--- NOTE | 2022-05-29 12:54 | CA ---
Transthoracic Echo Report Name: Johnny Kohli Age: 51 Gender: M : 1970 Exam Date: 05/29/2022 09:43 Exam Location: [facility] Ht (in): Wt (lb): Ordering Physician: Rickey Sy MD Attending/Referring Phys: Metal Bumper Joanne Camara RDCS Procedure CPT: Indications: eval for chf, afib Cardiac Hx: Technical Quality: Fair Contrast 1: Lumason Total Dose (mL): 4 Contrast 2: Total Dose (mL): MEASUREMENTS (Male / Female) Normal Values 2D ECHO LV Diastolic Diameter PLAX 6.4 cm 4.2 - 5.9 / 3.9 - 5.3 cm LV Systolic Diameter PLAX 5.8 cm IVS Diastolic Thickness 1.5 cm 0.6 - 1.0 / 0.6 - 0.9 cm LVPW Diastolic Thickness 1.7 cm 0.6 - 1.0 / 0.6 - 0.9 cm LV Relative Wall Thickness 0.5 RV Internal Dim ED PLAX 4.5 cm LV Diastolic Volume MOD BP 222.8 cm??? 67 - 155 / 56 - 104 cm??? LV Systolic Volume MOD BP 201.1 cm??? 22 - 58 / 19 - 49 cm??? LV Ejection Fraction MOD BP 9.8 % >= 55 % LV Diastolic Volume MOD 4C 267.6 cm??? LV Systolic Volume MOD 4C 237.6 cm??? LV Ejection Fraction MOD 4C 11.2 % LV Diastolic Length 4C 11.0 cm LV Systolic Length 4C 9.6 cm LV Diastolic Volume MOD 2C 171.4 cm??? LV Systolic Volume MOD 2C 168.9 cm??? LV Ejection Fraction MOD 2C 1.4 % LV Diastolic Length 2C 10.1 cm LV Systolic Length 2C 9.5 cm LA Volume 151.6 cm??? 18 - 58 / 22 - 52 cm??? M-MODE Aortic Root Diameter MM 3.7 cm LA Systolic Diameter MM 6.4 cm LA Ao Ratio MM 1.7 AV Cusp Separation MM 2.5 cm DOPPLER AV Peak Velocity 90.4 cm/s AV Peak Gradient 3.3 mmHg AV Mean Velocity 75.6 cm/s AV Mean Gradient 2.4 mmHg AV Velocity Time Integral 15.3 cm LVOT Peak Velocity 64.5 cm/s LVOT Peak Gradient 1.7 mmHg TR Peak Velocity 263.3 cm/s TR Peak Gradient 27.7 mmHg Right Ventricular Systolic Press 32.4 mmHg FINDINGS Left Ventricle Moderately increased septal wall thickness. Mildly increased left ventricular diastolic diameter. Severely increased left ventricular diastolic volume. Severely increased left ventricular systolic volume. Severely decreased left ventricular ejection fraction. Severely reduced global left ventricular systolic function. Left ventricular ejection fraction is estimated at 10-15 %. Right Ventricle Moderate right ventricular dilatation. Right ventricular systolic pressure within normal limits. Right Atrium Moderate right atrial dilatation. Left Atrium Severely increased left atrial volume. Moderately increased left atrial area. Mitral Valve Structurally normal mitral valve. No mitral stenosis. [id number] mitral regurgitation. Aortic Valve Trileaflet aortic valve. No aortic stenosis. Trace aortic regurgitation. Tricuspid Valve Mild tricuspid regurgitation. Pulmonic Valve Trace pulmonic regurgitation. Pericardium Minimal pericardial effusion (normal variant). Aorta Normal size aortic root and proximal ascending aorta. CONCLUSIONS Dilated left ventricle with very severe LV dysfunction ejection fraction less than 10% Previewed by: Dr. Jeff Roberts MD (Electronically Signed) Final Date: 29 May 2022 12:54
[2022-05-29] MEDS ORDERED: ACETAMINOPHEN TAB 325 MG TAB PO PRN (14:02)
[2022-05-29] MEDS ORDERED: ONDANSETRON 4 MG/2 ML VIAL IVP PRN (14:02)
[2022-05-29] MEDS ORDERED: CALCIUM CARBONATE 500 MG CHEWABLE PO PRN (14:02)
[2022-05-29] MEDS ORDERED: TEMAZEPAM 15 MG CAP PO PRN (14:02)
[2022-05-29] MEDS ORDERED: ALPRAZolam 0.25 MG TAB PO PRN (14:02)
[2022-05-29] MEDS ORDERED: LACTULOSE 20 GM/30 ML CUP PO PRN (14:02)
[2022-05-29] MEDS ORDERED: DEXTROSE 50% SYRINGE 50 ML IVP PRN ×2 (14:03)
--- NOTE | 2022-05-29 14:12 | P.CRDCN ---
History of Present Illness Consult date: 05/29/22 History of present illness: History of Present Illness: This is a 51-year-old male with a prior history of persistent atrial fibrillation, cardiomyopathy and CAD with stenting of the LAD, hypertension, hyperlipidemia, diabetes mellitus type 2. Patient last followed up in the office on 06/04/[address] Quinones. We have been asked to see the patient due to atrial fibrillation, medication noncompliance. Patient states that he has not been able to afford Xarelto and other medications and has not been taking them for some time. He has not followed up with any mill tender warm up since he last saw Dr. Quinones. He complains of increasing shortness of breath and lower extremity edema for the past 1-2 weeks. He denies any chest pain but he does have back pain. He denies lightheadedness or dizziness but has palpitations. Shortness of breath is worse with exertion. Positive PND. Patient was last hospitalized in October 2021 which time he was treated for pa roxysmal atrial fibrillation with RVR, EF at that time was 20-25%. EKG initial atrial fibrillation with ventricular rate of 137, repeat atrial fibrillation with ventricular rate of 92 CTA of the chest negative for pulmonary embolism. Ultrasound lower extremity is negative for DVT bilaterally Troponin negative 3, BUN 15 creatinine 0.85, blood sugar 186, BNP 3490. Influenza, RSV and Covid negative Patient is not taking any home medications. 11/2019 PTCA and stenting of the long weighted left anterior descending coronary artery with 2 drug-eluting stents 03/2020 SILVIANO and cardioversion for atrial fibrillation Echocardiogram 11/2019 revealed EF of 20-25% Echocardiogram 05/2020 revealed EF of 50-55%, trace mitral regurgitation, trace aortic regurgitation, mild tricuspid regurgitation Echocardiogram 10/2021 revealed EF of 40%, trace mitral regurgitation Echocardiogram 05/29/2022 revealed EF of less than 10%, dilated left ventricle with very severe LV dysfunction Review of Systems: Respiratory: No history of asthma, bronchitis or recent cough. GI: no nausea and vomiting . No history of peptic ulcer disease. No recent GI bleed. : No hematuria or dysuria. Nervous System: No stroke or seizure. Physical Examination: Head: Normocephalic. Eyes: Sclerae nonicteric. Neck: Good carotid upstroke, no bruit, no jugular venous distention. Lungs: Diminished bilaterally. Heart: Irregular rate and rhythm, S1-S2, no S3, no rub. No murmur. Abdomen: Soft nontender, positive bowel sounds no organomegaly. Extremities: 2+ edema bilateral greater on the right, intact distal pulses, chronic discoloration. Impression: Persistent Atrial fibrillation with rapid ventricular response, noncompliant with medications Acute systolic heart failure Severe tachycardia-induced cardiomyopathy CAD and stenting of the LAD Hypertension Diabetes Smoking history Noncompliance Plan: Continue patient on heparin drip Discontinue Cardizem drip Start patient on Toprol-XL 25 mg daily Start patient on Lasix 20 mg IV every 12 hours Monitor electrolytes and renal function Further recommendations as patient progresses Thank you for this consult we will follow with you. Nurse practitioner note has been reviewed, I agree with documented findings and plan of care. Patient was seen and examined. Past Medical History Past Medical History: Atrial Fibrillation, Diabetes Mellitus, Hyperlipidemia, Hypertension Additional Past Medical History / Comment(s): Echo 11/20/19 EF 20-25% History of Any Multi-Drug Resistant Organisms: None Reported Past Surgical History: Heart Catheterization With Stent Additional Past Surgical History / Comment(s): LAD stent X 2 on 11/17/19 Past Anesthesia/Blood Transfusion Reactions: No Reported Reaction Date of Last Stent Placement:: 11/17/19 Past Psychological History: No Psychological Hx Reported Smoking Status: Current every day smoker Past Alcohol Use History: None Reported Past Drug Use History: None Reported - Past Family History Mother Family Medical History: Cancer Medications and Allergies Home Medications Medication Instructions Recorded Confirmed Type No Known Home Medications 05/29/22 05/29/22 History Allergies Allergy/AdvReac Type Severity Reaction Status Date / Time bee venom protein (honey bee) Allergy Anaphylaxis Verified 05/29/22 07:36 shellfish derived Allergy Anaphylaxis Verified 05/29/22 07:36 Physical Exam Vitals: Vital Signs Temp Pulse Pulse Resp BP Pulse Ox 05/29/22 06:00 97.9 F 81 16 100/87 98 05/29/22 04:24 89 16 122/98 05/29/22 02:20 84 18 132/84 98 05/29/22 01:00 97 11 L 127/98 05/29/22 00:17 93 18 132/87 98 05/29/22 00:00 109 H 12 126/96 05/28/22 23:16 130 H 05/28/22 23:00 104 H 18 137/95 05/28/22 22:57 107 H 18 137/96 98 05/28/22 22:45 129 H 18 05/28/22 22:13 98 F 74 18 163/114 98 Intake and Output 05/28/22 05/29/22 05/29/22 22:59 06:59 14:59 Other: Weight 124.738 kg Results 05/28/22 22:37 05/28/22 22:37 Cardiac Enzymes 05/28/22 05/28/22 05/29/22 Range/Units 22:37 22:37 03:17 AST 43 (17-59) U/L Troponin I 0.024 0.032 (0.000-0.034) ng/mL Coagulation 05/28/22 Range/Units 22:37 PT 12.4 H (9.0-12.0) sec APTT 25.4 (22.0-30.0) sec CBC 05/28/22 Range/Units 22:37 WBC 10.7 H (3.8-10.6) k/uL RBC 5.65 (4.30-5.90) m/uL Hgb 17.0 (13.0-17.5) gm/dL Hct 50.3 (39.0-53.0) % Plt Count 213 (150-450) k/uL Comprehensive Metabolic Panel 05/28/22 Range/Units 22:37 Sodium 139 (137-145) mmol/L Potassium 4.0 (3.5-5.1) mmol/L Chloride 105 (98-107) mmol/L Carbon Dioxide 24 (22-30) mmol/L BUN 15 (9-20) mg/dL Creatinine 0.85 (0.66-1.25) mg/dL Glucose 186 H (74-99) mg/dL Calcium 9.2 (8.4-10.2) mg/dL AST 43 (17-59) U/L ALT 50 H (4-49) U/L Alkaline Phosphatase 110 (38-126) U/L Total Protein 7.8 (6.3-8.2) g/dL Albumin 4.6 (3.5-5.0) g/dL Current Medications Generic Name Dose Route Start Last Admin Trade Name Freq PRN Reason Stop Dose Admin Heparin Sodium (Porcine) 0 unit 05/29/22 00:36 Heparin Sodium 1,000 Un/Ml (10ml Vl) IV PER PROTOCOL PRN Low PTT Protocol Diltiazem HCl 125 mg/ Sodium 125 mls @ 5 mls/hr 05/28/22 22:53 05/28/22 23:00 Chloride IV 5 ml/hr .Q24H JACLYN 5 mls/hr Administration Protocol Heparin Sodium/Sodium Chloride 250 mls @ 10.004 mls/hr 05/29/22 00:45 05/29/22 01:13 25,000 unit/ Sodium Chloride IV 8.02 units/kg/hr .Q24H JACLYN 10.004 mls/hr Administration Protocol 8.02 UNITS/KG/HR Naloxone HCl 0.2 mg 05/29/22 00:50 Naloxone 0.4 Mg/Ml 1 Ml Vial IV Q2M PRN Opioid Reversal Intake and Output 05/28/22 05/29/22 05/29/22 22:59 06:59 14:59 Other: Weight 124.738 kg 05/28/22 22:37 05/28/22 22:37
--- NOTE | 2022-05-29 14:58 | XR ---
EXAMINATION TYPE: XR chest 2V DATE OF EXAM: 05/29/2022 2:52 PM COMPARISON: Chest radiographs from 626.2, CTA chest 05/28/2022 TECHNIQUE: XR chest 2V Frontal and lateral views of the chest. CLINICAL INDICATION:Male, 51 years old with history of sob; FINDINGS: Lungs/Pleura: There is no evidence of pleural effusion, focal consolidation, or pneumothorax. Heart/mediastinum: Cardiomediastinal silhouette is prominent and stable in size. Musculoskeletal: Multiple level degenerative disc disease changes seen throughout the spine. No acute osseous abnormality. IMPRESSION: No acute cardiopulmonary disease/process.
--- NOTE | 2022-05-29 15:46 | P.HPIM ---
History of Present Illness H&P Date: 05/29/22 Chief Complaint: Short of breath This is a 51-year-old patient who does not have a family doctor. Has been diagnosed atrial fibrillation diabetes hypertension hyperlipidemia in the past. Stopped taking his medications. Presents at least another week off increasing shortness of breath swelling of the legs. Uses 2 pillows at night.. To palpitation. No fever no chills. No cough. Review of systems: GEN.: Tired EYES: None HEENT: None NECK: None RESPIRATORY: As above CARDIOVASCULAR: As above GASTROINTESTINAL: None GENITOURINARY: None MUSCULOSKELETAL: None LYMPHATICS: None HEMATOLOGICAL: None PSYCHIATRY: None NEUROLOGICAL: None Past medical history to include: Atrial fibrillation diabetes, hypertension, hyperlipidemia, ejection fraction 5% in 2019, CAD with stent in 2019 Social history: Lives with his ex-girlfriend. Does vaping. No alcohol. 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 EYES: Pupils equal. Conjunctiva normal. HEENT: External appearance of nose and ears normal, oral cavity grossly normal. NECK: JVD t raised; masses not palpable. HEART: Heart sounds irregular; edema present. LUNGS: Respiratory rate increased; decreased breath sounds. ABDOMEN: Soft, nontender, liver spleen not palpable, no masses palpable. PSYCH: Alert and oriented x3; mood and affect normal. MUSCULOSKELETAL:No Clubbing/cyanosis;muscles-grossly intact NEUROLOGICAL: Cranial nerves grossly intact; no facial asymmetry, power and sensation grossly intact. LYMPHATICS: No lymph nodes palpable in the axilla and neck INVESTIGATIONS, reviewed in the clinical context: White count 10.7 hemoglobin 17 platelets 213 potassium 4 BUN 15 creatinine 0.85 Troponin I 0.024, 0.032, 0.0223 ProBNP: 3490 UA showing protein 1+ Influenza type A/b/RSV/COVID-19: Not detected EKG tracing personally reviewed by me-atrial fibrillation rate 137 Doppler ultrasound: Negative for DVT Chest CTA: Negative for PE. Large gallstone. 2-D echocardiogram: EF 1050% [id number] MR. Chest x-ray film personally reviewed by me-nikolay bolivar, venous prominence Assessment plan: -Acute on chronic congestive heart flatus exacerbation from systolic dysfunction from ischemic cardiomyopathy from patient not taking his medications. EF 10- 15% Lasix 20 mg every 12. Add Aldactone 12.5 mg daily. Toprol-XL. Add Cozaar 25 mg daily at bedtime -Persistent atrial fibrillation with a rapid ventricular rate IV heparin. Toprol-XL. -IV heparin monitoring Follow PTT -CAD with prior history of stent in 2019 Aspirin. Toprol-XL. Add Lipitor -Essential hypertension Toprol-XL -Chronic nicotine dependence cigarette smoker Nicotine patch -Morbid obesity BMI 44.4 Weight loss measures Care was discussed with the patient. Questions answered. Cardiology consulted Past Medical History Past Medical History: Atrial Fibrillation, Diabetes Mellitus, Hyperlipidemia, Hypertension Additional Past Medical History / Comment(s): Echo 11/20/19 EF 20-25% History of Any Multi-Drug Resistant Organisms: None Reported Past Surgical History: Heart Catheterization With Stent Additional Past Surgical History / Comment(s): LAD stent X 2 on 11/17/19 Past Anesthesia/Blood Transfusion Reactions: No Reported Reaction Date of Last Stent Placement:: 11/17/19 Past Psychological History: No Psychological Hx Reported Smoking Status: Current every day smoker Past Alcohol Use History: None Reported Past Drug Use History: None Reported - Past Family History Mother Family Medical History: Cancer Medications and Allergies Home Medications Medication Instructions Recorded Confirmed Type No Known Home Medications 05/29/22 05/29/22 History Allergies Allergy/AdvReac Type Severity Reaction Status Date / Time bee venom protein (honey bee) Allergy Anaphylaxis Verified 05/29/22 07:36 shellfish derived Allergy Anaphylaxis Verified 05/29/22 07:36 Physical Exam Vitals: Vital Signs Temp Pulse Pulse Resp BP Pulse Ox 05/29/22 09:05 89 17 106/80 98 05/29/22 06:00 97.9 F 81 16 100/87 98 05/29/22 04:24 89 16 122/98 05/29/22 02:20 84 18 132/84 98 05/29/22 01:00 97 11 L 127/98 05/29/22 00:17 93 18 132/87 98 05/29/22 00:00 109 H 12 126/96 05/28/22 23:16 130 H 05/28/22 23:00 104 H 18 137/95 05/28/22 22:57 107 H 18 137/96 98 05/28/22 22:45 129 H 18 05/28/22 22:13 98 F 74 18 163/114 98 Intake and Output 05/28/22 05/29/22 05/29/22 22:59 06:59 14:59 Intake Total 77.864 Output Total 800 Balance -722.136 Intake: Intake, IV Titration 77.864 Amount Heparin Sod,Pork in 0.45% 77.864 NaCl 25,000 unit In 0.45 % NaCl 1 250ml.bag @ 8.02 UNITS/KG/HR 10.004 mls/ hr IV .Q24H [facility] Rx#: [id number] Output: Urine 800 Other: Weight 124.738 kg Results CBC & Chem 7: 05/28/22 22:37 05/28/22 22:37 Labs: Abnormal Lab Results - Last 24 Hours (Table) 05/28/22 05/28/22 05/28/22 Range/Units 22:37 22:37 22:37 WBC 10.7 H (3.8-10.6) k/uL PT 12.4 H (9.0-12.0) sec INR 1.2 H (<1.2) Glucose 186 H (74-99) mg/dL ALT 50 H (4-49) U/L Ur Specific [place] (1.001-1.035) Urine Protein (Negative) Urine Mucus (None) /hpf 05/29/22 Range/Units 02:35 WBC (3.8-10.6) k/uL PT (9.0-12.0) sec INR (<1.2) Glucose (74-99) mg/dL ALT (4-49) U/L Ur Specific [place] 1.036 H (1.001-1.035) Urine Protein 1+ H (Negative) Urine Mucus Rare H (None) /hpf
[2022-05-29 16:34] LABS: Glucose,Whole Blood 355 mg/dL (70-110)
[2022-05-29] MEDS: SPIRONOLACTONE 25 MG TAB PO SCH (16:40)
[2022-05-29] MEDS: INSULIN ASPART (NovoLOG) 100 UNIT/ML VIAL SQ SCH (16:41)
[2022-05-29 20:20] LABS: Glucose,Whole Blood 142 mg/dL (70-110)
[2022-05-29] MEDS: FUROSEMIDE 10 MG/ML 2 ML VIAL IV SCH (21:25)
[2022-05-29] MEDS: LOSARTAN 25 MG TAB PO SCH (21:26)
[2022-05-30 06:09] LABS: Glucose,Whole Blood 226 mg/dL (70-110)
--- NOTE | 2022-05-30 06:09 | P.PN ---
Subjective Progress Note Date: 05/30/22 Principal diagnosis: Persistent atrial fibrillation This is a 51-year-old male with a prior history of persistent atrial fibrillation, cardiomyopathy and CAD with stenting of the LAD, hypertension, hyperlipidemia, diabetes mellitus type 2. Patient last followed up in the office on 06/04/[address] Quinones. We have been asked to see the patient due to atrial fibrillation, medication noncompliance. Patient states that he has not been able to afford Xarelto and other medications and has not been taking them for some time. He has not followed up with any senior patient account representative since he last saw Dr. Quinones. He complains of increasing shortness of breath and lower extremity edema for the past 1-2 weeks. He denies any chest pain but he does have back pain. He denies lightheadedness or dizziness but has palpitations. Shortness of breath is worse with exertion. Positive PND. Patient was last hospitalized in October 2021 which time he was treated for paroxysmal atrial fibrillation with RVR, EF at that time was 20-25%. EKG initial atrial fibrillation with ventricular rate of 137, repeat atrial fibrillation with ventricular rate of 92 CTA of the chest negative for pulmonary embolism. Ultrasound lower extremity is negative for DVT bilaterally Troponin negative 3, BUN 15 creatinine 0.85, blood sugar 186, BNP 3490. Influenza, RSV and Covid negative Patient is not taking any home medications. 11/2019 PTCA and stenting of the long weighted left anterior descending coronary artery with 2 drug-eluting stents 03/2020 SILVIANO and cardioversion for atrial fibrillation Echocardiogram 11/2019 revealed EF of 20-25% Echocardiogram 05/2020 revealed EF of 50-55%, trace mitral regurgitation, trace aortic regurgitation, mild tricuspid regurgitation Echocardiogram 10/2021 revealed EF of 40%, trace mitral regurgitation Echocardiogram 05/29/2022 revealed EF of less than 10%, dilated left ventricle with very severe LV dysfunction May 302022 The patient was seen and evaluated this morning. He remains in atrial fibrillation with overall controlled heart rate. He continues to be in failure with evidence of left lower extremity edema. He is on room air. He stated that he is feeling somewhat better. The echo revealed severe cardiomyopathy was EF around 10-15%. I am going to increase the dose of beta jacqui and continue the current dose of losartan and Aldactone and continue Lasix IV as well and follow- up with the kidney function and electrolytes. Consider ruling out severe CAD. The cardiomyopathy is likely related to tachycardia induced cardiomyopathy. Impression: Persistent Atrial fibrillation with rapid ventricular response, noncompliant with medications Acute systolic heart failure Severe tachycardia-induced cardiomyopathy CAD and stenting of the LAD Hypertension Diabetes Smoking history Noncompliance Plan: Continue patient on heparin drip Continue the current medical regimen Increase the dose of beta jacqui Consider ruling out CAD Follow-up with the patient Objective - Vital Signs Vital signs: Vital Signs Temp 98.0 F 05/30/22 04:00 Pulse 95 05/30/22 04:00 Resp 18 05/30/22 04:00 BP 133/118 05/30/22 04:00 Pulse Ox 97 05/30/22 04:00 FiO2 Intake & Output 05/29/22 05/29/22 05/30/22 06:59 18:59 06:59 Intake Total 607.103 84.987 Output Total 800 1075 Balance -192.897 -990.013 Weight 124.738 kg 124.738 kg 131.8 kg Intake: Intake, IV Titration 247.103 84.987 Amount Diltiazem 125 mg In 65.417 Sodium Chloride 0.9% 100 ml @ 5 mls/hr IV .Q24H [facility] Rx#:[id number] Heparin Sod,Pork in 0.45% 181.686 84.987 NaCl 25,000 unit In 0.45 % NaCl 1 250ml.bag @ 8.02 UNITS/KG/HR 10.004 mls/ hr IV .Q24H [facility] Rx#: [id number] Oral 360 Output: Urine 800 1075 Other: Voiding Method Toilet Toilet # Voids 2 1 - Labs CBC & Chem 7: 05/28/22 22:37 05/28/22 22:37 Labs: Abnormal Lab Results - Last 24 Hours (Table) 05/29/22 05/29/22 05/29/22 Range/Units 11:52 15:14 15:14 APTT 34.8 H (22.0-30.0) sec POC Glucose (mg/dL) 253 H (70-110) mg/dL Hemoglobin A1c 8.4 H (0.0-6.0) % 05/29/22 05/29/22 05/29/22 Range/Units 16:33 20:18 22:00 APTT 46.2 H (22.0-30.0) sec POC Glucose (mg/dL) 355 H 142 H (70-110) mg/dL Hemoglobin A1c (0.0-6.0) %
[2022-05-30] MEDS: INSULIN ASPART (NovoLOG) 100 UNIT/ML VIAL SQ SCH ×3 (06:52→17:09)
[2022-05-30 07:24] LABS: INR 1.3 (<1.2); Partial Thromboplastin Time 36.1 sec (22.0-30.0); Prothrombin Time 12.8 sec (9.0-12.0)
[2022-05-30 07:26] LABS: African American GFR (CKD) >90 (>60 ml/min/1.73 sqM); Anion Gap 7 mmol/L; Basophils # (A) 0.1 k/uL (0-0.2); Basophils % (A) 1 %; Blood Urea Nitrogen 19 mg/dL (9-20); Calcium 8.7 mg/dL (8.4-10.2); Carbon Dioxide 27 mmol/L (22-30); Chloride 105 mmol/L (98-107); Eosinophils # (A) 0.4 k/uL (0-0.7); Eosinophils % (A) 4 %; Glucose 163 mg/dL (74-99); HCT 45.1 % (39.0-53.0); HGB 15.5 gm/dL (13.0-17.5); Lymphocytes # (A) 3.1 k/uL (1.0-4.8); Lymphocytes % (A) 33 %; MCH 30.9 pg (25.0-35.0); MCHC 34.4 g/dL (31.0-37.0); MCV 89.7 fL (80.0-100.0); Mean Platelet Volume 8.6; Monocytes # (A) 0.5 k/uL (0-1.0); Monocytes % (A) 6 %; Neutrophils # (A) 5.2 k/uL (1.3-7.7); Neutrophils % (A) 55 %; Non-African American GFR(CKD) >90 (>60 ml/min/1.73 sqM); Platelet Count 201 k/uL (150-450); RBC 5.03 m/uL (4.30-5.90); RDW 13.3 % (11.5-15.5); Sodium 139 mmol/L (137-145); WBC 9.5 k/uL (3.8-10.6)
[2022-05-30] MEDS: FUROSEMIDE 10 MG/ML 2 ML VIAL IV SCH ×2 (08:29→22:03)
[2022-05-30] MEDS: SPIRONOLACTONE 25 MG TAB PO SCH (08:30)
[2022-05-30] MEDS: HEPARIN SODIUM 1,000 UN/ML (10ML VL) IV PRN ×2 (08:30→14:56)
[2022-05-30] MEDS: HEPARIN SOD,PORK IN 0.45% NACL 25,000 UNIT in 0.45% NACL 1 250ML.BAG IV SCH (11:15)
[2022-05-30 11:59] LABS: Glucose,Whole Blood 207 mg/dL (70-110)
[2022-05-30 16:38] LABS: Glucose,Whole Blood 206 mg/dL (70-110)
--- NOTE | 2022-05-30 16:48 | P.PN ---
Progress Note - Text Progress Note Date: 05/30/22 Chief Complaint: Short of breath This is a 51-year-old patient who does not have a family doctor. Has been diagnosed atrial fibrillation diabetes hypertension hyperlipidemia in the past. Stopped taking his medications. Presents at least another week off increasing shortness of breath swelling of the legs. Uses 2 pillows at night.. To palpitation. No fever no chills. No cough. May 30: Breathing some better. Edema present. Remains on IV Lasix 20 mg every 12. Will change to Lovenox therapeutic dose. A. fib uncontrolled. Toprol XL increased to 50 mg daily. Active Medications Acetaminophen (Acetaminophen Tab 325 Mg Tab) 650 mg PO Q6HR PRN PRN Reason: Mild Pain or Fever > 100.5 Alprazolam (Alprazolam 0.25 Mg Tab) 0.25 mg PO Q6HR PRN PRN Reason: Anxiety Calcium Carbonate/Glycine (Calcium Carbonate 500 Mg Chewable) 1,000 mg PO Q4HR PRN PRN Reason: Dyspepsia Dextrose/Water (Dextrose 50% Syringe 50 Ml) 25 ml IVP PER PROTOCOL PRN; Protocol PRN Reason: Hypoglycemia Dextrose/Water (Dextrose 50% Syringe 50 Ml) 50 ml IVP PER PROTOCOL PRN; Protocol PRN Reason: Hypoglycemia Furosemide (Furosemide 10 Mg/Ml 2 Ml Vial) 20 mg IV Q12HR JACLYN Last Admin: 05/30/22 08:29 Dose: 20 mg Heparin Sodium (Porcine) (Heparin Sodium 1,000 Un/Ml (10ml Vl)) 0 unit IV PER PROTOCOL PRN; Protocol PRN Reason: Low PTT Last Admin: 05/30/22 14:56 Dose: 3,295 unit Heparin Sodium/Sodium Chloride (25,000 unit/ Sodium Chloride) 250 mls @ 10.004 mls/hr IV .Q24H JACLYN; Protocol Last Titration: 05/30/22 14:56 Dose: 18 units/kg/hr, 22.453 mls/hr Insulin Aspart (Insulin Aspart (Novolog) 100 Unit/Ml Vial) 0 unit SQ AC-TID JACLYN; Protocol Last Admin: 05/30/22 12:54 Dose: 4 unit Lactulose (Lactulose 20 Gm/30 Ml Cup) 20 gm PO DAILY PRN PRN Reason: Constipation Losartan Potassium (Losartan 25 Mg Tab) 25 mg PO HS JACLYN Last Admin: 05/29/22 21:26 Dose: 25 mg Metoprolol Succinate (Metoprolol Succinate (Er) 50 Mg Tab.Er.24h) 50 mg PO DAILY [facility] Naloxone HCl (Naloxone 0.4 Mg/Ml 1 Ml Vial) 0.2 mg IV Q2M PRN PRN Reason: Opioid Reversal Ondansetron HCl (Ondansetron 4 Mg/2 Ml Vial) 4 mg IVP Q8HR PRN PRN Reason: Nausea And Vomiting Spironolactone (Spironolactone 25 Mg Tab) 12.5 mg PO DAILY [facility] Last Admin: 05/30/22 08:30 Dose: 12.5 mg Temazepam (Temazepam 15 Mg Cap) 15 mg PO HS PRN PRN Reason: Insomnia Past medical history to include: Atrial fibrillation diabetes, hypertension, hyperlipidemia, ejection fraction 5% in 2019, CAD with stent in 2019 Social history: Lives with his ex-girlfriend. Does vaping. No alcohol. 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 Conjunctiva normal. HEENT: External appearance of nose and ears normal, oral cavity grossly normal. NECK: JVD t raised; masses not palpable. HEART: Heart sounds irregular; edema present. LUNGS: Respiratory rate increased; decreased breath sounds. ABDOMEN: Soft, nontender, liver spleen not palpable, no masses palpable. PSYCH: Alert and oriented x3; mood and affect normal. MUSCULOSKELETAL:No Clubbing/cyanosis;muscles-grossly intact INVESTIGATIONS, reviewed in the clinical context: May 30: Creatinine 0.92 potassium 4 White count 10.7 hemoglobin 17 platelets 213 potassium 4 BUN 15 creatinine 0.85 Troponin I 0.024, 0.032, 0.0223 ProBNP: 3490 UA showing protein 1+ Influenza type A/b/RSV/COVID-19: Not detected EKG tracing personally reviewed by me-atrial fibrillation rate 137 Doppler ultrasound: Negative for DVT Chest CTA: Negative for PE. Large gallstone. 2-D echocardiogram: EF 1050% [id number] MR. Chest x-ray film personally reviewed by me-nikolay bolivar, venous prominence Assessment plan: -Acute on chronic congestive heart flatus exacerbation from systolic dysfunction from ischemic cardiomyopathy from patient not taking his medications. EF 10-15% IV Lasix 20 mg every 12. Aldactone 12.5 mg daily. Toprol-XL. Cozaar 25 mg daily at bedtime -Persistent atrial fibrillation with a rapid ventricular rate IV heparin. Increase Toprol-XL 50 mg a day. -IV heparin monitoring Follow PTT -CAD with prior history of stent in 2019 Aspirin. Toprol-XL. Add Lipitor -Essential hypertension Toprol-XL -Chronic nicotine dependence cigarette smoker Nicotine patch -Morbid obesity BMI 44.4 Weight loss measures Increase Toprol-XL to 50 mg day. Change IV heparin to subcu Lovenox. Other medications to continue.
[2022-05-30 20:01] LABS: Glucose,Whole Blood 150 mg/dL (70-110)
[2022-05-30] MEDS ORDERED: METOPROLOL SUCCINATE (ER) 50 MG TAB.ER.24H PO SCH (21:00)
[2022-05-30] MEDS: LOSARTAN 25 MG TAB PO SCH (22:03)
[2022-05-30] MEDS: ENOXAPARIN 120 MG/0.8 ML SYRINGE SQ SCH (23:17)
--- NOTE | 2022-05-31 06:06 | P.PN ---
Subjective Progress Note Date: 05/31/22 Principal diagnosis: Persistent atrial fibrillation This is a 51-year-old male with a prior history of persistent atrial fibrillation, cardiomyopathy and CAD with stenting of the LAD, hypertension, hyperlipidemia, diabetes mellitus type 2. Patient last followed up in the office on 06/04/[address] Quinones. We have been asked to see the patient due to atrial fibrillation, medication noncompliance. Patient states that he has not been able to afford Xarelto and other medications and has not been taking them for some time. 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 Quinones. He complains of increasing shortness of breath and lower extremity edema for the past 1-2 weeks. He denies any chest pain but he does have back pain. He denies lightheadedness or dizziness but has palpitations. Shortness of breath is worse with exertion. Positive PND. Patient was last hospitalized in October 2021 which time he was treated for paroxysmal atrial fibrillation with RVR, EF at that time was 20-25%. EKG initial atrial fibrillation with ventricular rate of 137, repeat atrial fibrillation with ventricular rate of 92 CTA of the chest negative for pulmonary embolism. Ultrasound lower extremity is negative for DVT bilaterally Troponin negative 3, BUN 15 creatinine 0.85, blood sugar 186, BNP 3490. Influenza, RSV and Covid negative Patient is not taking any home medications. 11/2019 PTCA and stenting of the long weighted left anterior descending coronary artery with 2 drug-eluting stents 03/2020 SILVIANO and cardioversion for atrial fibrillation Echocardiogram 11/2019 revealed EF of 20-25% Echocardiogram 05/2020 revealed EF of 50-55%, trace mitral regurgitation, trace aortic regurgitation, mild tricuspid regurgitation Echocardiogram 10/2021 revealed EF of 40%, trace mitral regurgitation Echocardiogram 05/29/2022 revealed EF of less than 10%, dilated left ventricle with very severe LV dysfunction May [id number] The patient was seen and evaluated this morning. He remains in atrial fibrillation with overall controlled heart rate. He continues to be in failure with evidence of left lower extremity edema. He is on room air. He stated that he is feeling somewhat better. The echo revealed severe cardiomyopathy was EF around 10-15%. I am going to increase the dose of beta jacqui and continue the current dose of losartan and Aldactone and continue Lasix IV as well and follow- up with the kidney function and electrolytes. Consider ruling out severe CAD. The cardiomyopathy is likely related to tachycardia induced cardiomyopathy. May [id number] The patient was seen and evaluated this morning. He stated that he is feeling better. He continues to be in atrial fibrillation with an average heart rate around 120 beats per minutes. The shortness of breath is better. As a matter of fact he is not on oxygen any more. He reports no symptoms of chest pain or chest discomfort. He continues to be on anticoagulation and currently he is on Lovenox. Beside that he is on maximize medical treatment for cardiomyopathy in cluding beta jacqui and losartan and Aldactone. The echo showed an ejection fraction of 10%. The plan is to pursue a heart catheterization later on today. Meanwhile increasing the dose of beta jacqui for better heart rate control. The physical examination is remarkable for irregular rhythm with clear breathing sounds bilaterally and no lower eccentric is edema noted. Impression: Persistent Atrial fibrillation with rapid ventricular response, noncompliant with medications Acute systolic heart failure which hasn't Severe cardiomyopathy, ischemic versus nonischemic, likely tachycardia induced cardiomyopathy CAD and stenting of the LAD Hypertension Diabetes Smoking history Noncompliance Plan: Continue anticoagulation with Lovenox Continue the current medical regimen Increase the dose of beta jacqui Consider ruling out CAD. Performing a heart catheterization today Follow-up with the patient Objective - Vital Signs Vital signs: Vital Signs Temp 98.3 F 05/31/22 00:00 Pulse 110 H 05/31/22 02:00 Resp 18 05/31/22 02:00 BP 128/93 05/31/22 00:00 Pulse Ox 98 05/31/22 00:00 FiO2 Intake & Output 05/30/22 05/30/22 05/31/22 06:59 18:59 06:59 Intake Total 84.987 561.612 Output Total 1075 1550 1200 Balance -990.013 -988.388 -1200 Weight 131.8 kg Intake: Intake, IV Titration 84.987 321.612 Amount Heparin Sod,Pork in 0.45% 84.987 321.612 NaCl 25,000 unit In 0.45 % NaCl 1 250ml.bag @ 8.02 UNITS/KG/HR 10.004 mls/ hr IV .Q24H JACLYN Rx#: [id number] Oral 240 Output: Urine 1075 1550 1200 Other: Voiding Method Toilet Urinal Urinal # Voids 1 2 - Labs CBC & Chem 7: 05/30/22 06:39 05/30/22 06:39 Labs: Abnormal Lab Results - Last 24 Hours (Table) 05/30/22 05/30/22 05/30/22 Range/Units 06:07 06:39 06:39 PT 12.8 H (9.0-12.0) sec INR 1.3 H (<1.2) APTT 36.1 H (22.0-30.0) sec Glucose 163 H (74-99) mg/dL POC Glucose (mg/dL) 226 H (70-110) mg/dL 05/30/22 05/30/22 05/30/22 Range/Units 11:55 14:17 16:36 PT (9.0-12.0) sec INR (<1.2) APTT 43.6 H (22.0-30.0) sec Glucose (74-99) mg/dL POC Glucose (mg/dL) 207 H 206 H (70-110) mg/dL 05/30/22 05/30/22 Range/Units 19:59 21:14 PT (9.0-12.0) sec INR (<1.2) APTT 47.2 H (22.0-30.0) sec Glucose (74-99) mg/dL POC Glucose (mg/dL) 150 H (70-110) mg/dL
[2022-05-31 06:13] LABS: Glucose,Whole Blood 148 mg/dL (70-110)
[2022-05-31] MEDS: INSULIN ASPART (NovoLOG) 100 UNIT/ML VIAL SQ SCH ×3 (06:37→17:32)
[2022-05-31] MEDS: FUROSEMIDE 10 MG/ML 2 ML VIAL IV SCH (08:09)
[2022-05-31] MEDS: SPIRONOLACTONE 25 MG TAB PO SCH (08:09)
[2022-05-31] MEDS: ENOXAPARIN 120 MG/0.8 ML SYRINGE SQ SCH (08:10)
[2022-05-31] MEDS ORDERED: LIDOCAINE 1% INJ 10MG/ML (5 ML VIAL-PF) SQ ONE (11:53)
[2022-05-31] MEDS ORDERED: MIDAZOLAM 2 MG/2 ML VIAL IV ONE (11:59)
[2022-05-31] MEDS ORDERED: VERAPAMIL SYRINGE (5 MG/10 ML) INTRAARTER ONE (11:59)
[2022-05-31] MEDS ORDERED: SODIUM CHLORIDE 0.9% 1,000 ML IV ONE (12:00)
[2022-05-31] MEDS ORDERED: HEPARIN SODIUM 1,000 UN/ML (10ML VL) IV ONE (12:03)
[2022-05-31] MEDS ORDERED: RX INFO: IV CONTRAST WAS GIVEN 1 EACH MISC MISCELLANE PRN (12:18)
[2022-05-31] MEDS ORDERED: IOPAMIDOL-370 125ML BTL INJ ONE (12:20)
--- NOTE | 2022-05-31 12:25 | P.PCN ---
Date of Procedure: 05/31/22 Operative Findings: CARDIAC CATHETERIZATION PERFORMING PHYSICIAN: Gigi Ricketts MD, RPVI PROCEDURE PERFORMED: 1. Selective right and left coronary angiogram 2. Left heart catheterization INDICATION: This is a 51-year-old gentleman with a past medical history significant for CAD with prior stenting of the LAD who was admitted to the hospital with increasing shortness of breath. He was diagnosed with heart failure and also he was found to be in nature fibrillation with RVR. He underwent an echo which revealed severe cardiomyopathy with EF between 10-15%. In the light of that he was b rought today to undergo a heart catheterization COMPLICATION: None APPROACH: Right radial artery LEVEL OF SEDATION: Moderate with a sedation length of 20 minutes PROCEDURE DESCRIPTION: After obtaining an informed consent, the patient was brought to cardiac laboratory chief. Local anesthesia was performed using lidocaine subcutaneously. The right radial artery was cannulated using Seldinger technique, the guidewire passed easily, following that we advanced a 5-[place] sheath dilator assembly, the wire and dilator were removed and sheath was flushed. Following that, 2 mg of verapamil along with 5000 unit heparin intravenous were given. Selective right and left coronary angiogram using a 6-[place] JR4 and JL 3.5 catheters. Following that we did left heart catheterization using 6-[place] pigtail catheter. The procedure was completed there was no complication. SELECTIVE CORONARY ANGIOGRAM: The right coronary artery: Large caliber vessel and a dominant vessel. The RCA has mild diffuse disease only. Distally bifurcates into PDA and PLV branches both appear to have mild disease only. Left main: Has mild disease appears to be in the range of 10-20%. Bifurcates into an LCx and LAD The left circumflex: Large-caliber vessel and on dominant vessel. The proximal LCx is angiographically normal and gives rises into an OM1 and OM 2, both are large caliber vessel was mild disease only. The left anterior descending artery: The proximal LAD appears to be normal. The mid LAD is a stented and the stent appeared to be patent. The LAD in the midportion gives rise into a diagonal branch which appeared to be angiographically normal. The LAD distally is normal. HEMODYNAMICS: The LVEDP was 8 mmHg was no significant gradient across aortic valve CONCLUSION: 1. Mild nonobstructive coronary artery disease with patent stent in the mid LAD 2. Normal left-sided filling pressure POSTPROCEDURE MANAGEMENT: Continue the current medical regimen. The patient is euvolemic was normal left- sided filling pressure. Consider DC Lasix IV and start the patient on Lasix orally. Continue the cardiomyopathy medication. DC Lovenox and start the patient on oral anticoagulation. Consider cardioversion to restore the normal sinus mechanism. The patient has cardiomyopathy because of the tachycardia related to atrial fibrillation.
[2022-05-31] MEDS ORDERED: SODIUM CHLORIDE 0.9% 1,000 ML IV SCH (12:30)
[2022-05-31 12:36] LABS: Glucose,Whole Blood 183 mg/dL (70-110)
[2022-05-31 16:50] LABS: Glucose,Whole Blood 187 mg/dL (70-110)
[2022-05-31 20:16] LABS: Glucose,Whole Blood 161 mg/dL (70-110)
[2022-05-31] MEDS: APIXABAN 5 MG TAB PO SCH (20:34)
[2022-05-31] MEDS: METOPROLOL SUCCINATE (ER) 100 MG TAB.ER.24H PO SCH (20:34)
[2022-05-31] MEDS: LOSARTAN 25 MG TAB PO SCH (20:34)
--- NOTE | 2022-05-31 21:42 | P.PN ---
Progress Note - Text Progress Note Date: 05/31/22 Chief Complaint: Short of breath This is a 51-year-old patient who does not have a family doctor. Has been diagnosed atrial fibrillation diabetes hypertension hyperlipidemia in the past. Stopped taking his medications. Presents at least another week off increasing shortness of breath swelling of the legs. Uses 2 pillows at night.. To palpitation. No fever no chills. No cough. May 30: Breathing some better. Edema present. Remains on IV Lasix 20 mg every 12. Will change to Lovenox therapeutic dose. A. fib uncontrolled. Toprol XL increased to 50 mg daily. May 31: Underwent cardiac catheterization today. Minimal disease. Breathing much better. recovery agent to oral Lasix. Increase activity. Care discussed with the patient. 2-D echo results. Compliance discussed. Active Medications Acetaminophen (Acetaminophen Tab 325 Mg Tab) 650 mg PO Q6HR PRN PRN Reason: Mild Pain or Fever > 100.5 Alprazolam (Alprazolam 0.25 Mg Tab) 0.25 mg PO Q6HR PRN PRN Reason: Anxiety Apixaban (Apixaban 5 Mg Tab) 5 mg PO BID [facility]; Protocol Last Admin: 05/31/22 20:34 Dose: 5 mg Calcium Carbonate/Glycine (Calcium Carbonate 500 Mg Chewable) 1,000 mg PO Q4HR PRN PRN Reason: Dyspepsia Dextrose/Water (Dextrose 50% Syringe 50 Ml) 25 ml IVP PER PROTOCOL PRN; Protocol PRN Reason: Hypoglycemia Dextrose/Water (Dextrose 50% Syringe 50 Ml) 50 ml IVP PER PROTOCOL PRN; Protocol PRN Reason: Hypoglycemia Furosemide (Furosemide 40 Mg Tab) 40 mg PO DAILY [facility] Insulin Aspart (Insulin Aspart (Novolog) 100 Unit/Ml Vial) 0 unit SQ AC-TID [facility]; Protocol Last Admin: 05/31/22 17:32 Dose: 2 unit Lactulose (Lactulose 20 Gm/30 Ml Cup) 20 gm PO DAILY PRN PRN Reason: Constipation Losartan Potassium (Losartan 25 Mg Tab) 25 mg PO [facility] Last Admin: 05/31/22 20:34 Dose: 25 mg Metoprolol Succinate (Metoprolol Succinate (Er) 100 Mg Tab.Er.24h) 100 mg PO [facility] Last Admin: 05/31/22 20:34 Dose: 100 mg Miscellaneous Information (Rx Info: Iv Contrast Was Given 1 Each Misc) 1 each MISCELLANE DAILY PRN PRN Reason: Per Protocol Stop: 06/02/22 12:18 Naloxone HCl (Naloxone 0.4 Mg/Ml 1 Ml Vial) 0.2 mg IV Q2M PRN PRN Reason: Opioid Reversal Ondansetron HCl (Ondansetron 4 Mg/2 Ml Vial) 4 mg IVP Q8HR PRN PRN Reason: Nausea And Vomiting Spironolactone (Spironolactone 25 Mg Tab) 12.5 mg PO DAILY JACLYN Last Admin: 05/31/22 08:09 Dose: 12.5 mg Temazepam (Temazepam 15 Mg Cap) 15 mg PO HS PRN PRN Reason: Insomnia Past medical history to include: Atrial fibrillation diabetes, hypertension, hyperlipidemia, ejection fraction 5% in 2019, CAD with stent in 2019 Social history: Lives with his ex-girlfriend. Does vaping. No alcohol. 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 Conjunctiva normal. HEENT: External appearance of nose and ears normal, oral cavity grossly normal. NECK: JVD t raised; masses not palpable. HEART: Heart sounds irregular; edema decreased LUNGS: Respiratory rate increased; decreased breath sounds. ABDOMEN: Soft, nontender, liver spleen not palpable, no masses palpable. PSYCH: Alert and oriented x3; mood and affect normal. MUSCULOSKELETAL:No Clubbing/cyanosis;muscles-grossly intact INVESTIGATIONS, reviewed in the clinical context: Cardiac catheterization: Mild nonobstructive CAD with patent stent in the mid LAD. May 30: Creatinine 0.92 potassium 4 White count 10.7 hemoglobin 17 platelets 213 potassium 4 BUN 15 creatinine 0.85 Troponin I 0.024, 0.032, 0.0223 ProBNP: 3490 UA showing protein 1+ Influenza type A/b/RSV/COVID-19: Not detected EKG tracing personally reviewed by me-atrial fibrillation rate 137 Doppler ultrasound: Negative for DVT Chest CTA: Negative for PE. Large gallstone. 2-D echocardiogram: EF 1050% [id number] MR. Chest x-ray film personally reviewed by me-nikolay bolivar, venous prominence Assessment plan: -Acute on chronic congestive heart flatus exacerbation from systolic dysfunction from ischemic cardiomyopathy from patient not taking his medications. EF 10-15% Lasix 40 mg by mouth daily. Aldactone 12.5 mg daily. Toprol-XL. Cozaar 25 mg daily at bedtime -Persistent atrial fibrillation with a rapid ventricular rate IV heparin. Increase Toprol-XL 50 mg a day. -IV heparin monitoring Follow PTT -CAD with prior history of stent in 2019 Aspirin. Toprol-XL. Add Lipitor Cardiac catheterization showing patent stent to mid LAD. -Essential hypertension Toprol-XL -Chronic nicotine dependence cigarette smoker Nicotine patch -Morbid obesity BMI 44.4 Weight loss measures Underwent cardiac catheterization today. Care was discussed. Questions answered. Hopefully home tomorrow.
[2022-06-01 06:11] LABS: Glucose,Whole Blood 179 mg/dL (70-110)
[2022-06-01] MEDS: INSULIN ASPART (NovoLOG) 100 UNIT/ML VIAL SQ SCH ×3 (06:40→17:56)
--- NOTE | 2022-06-01 08:05 | P.PN ---
Subjective Progress Note Date: 06/01/22 PROGRESS NOTE The patient is a 51-year-old male, history of CAD, chronic persistent A. fib, history of cardiomyopathy, noncompliance and smoking who presented with worsening CHF, worsening edema. He underwent cardiac catheterization yesterday and was found to have no evidence of significant progression of disease. He is feeling better today, he denies any dizziness, palpitations or syncope. He denies any nausea. He is in atrial fibrillation with controlled ventricular response. Medications: Lasix 40 mg daily, losartan 25 mg daily, metoprolol succinate 100 mg daily, Aldactone 25 mg daily,Eliquis 5 mg twice a day PHYSICAL EXAMINATION: Blood pressure 113/80 heart rate 60 LUNGS: Clear to auscultation HEART: Irregular rate and rhythm, S1, S2. No S3. No systolic murmur ABDOMEN: Soft, nontender, no organomegaly EXTREMETIES: Trace to 1+ right edema, right radial pulse intact LAB: Pending IMPRESSION: 1. Severe cardiomyopathy, probable combination of ischemic and nonischemic with some evidence of CHF on admission 2. Chronic persistent atrial fibrillation 3. History of CAD, patent stent 4. History of noncompliance PLAN: 1. Maximize medical therapy 2. Add Farxiga 10 mg daily 3. Increase physical activity 4. I discussed with the patient the importance of compliance, if there is no i mprovement in his EF then he will be a candidate for ICD implantation. Objective - Vital Signs Vital signs: Vital Signs Temp 97 F L 06/01/22 04:00 Pulse 64 06/01/22 04:00 Resp 18 06/01/22 04:00 BP 98/71 06/01/22 04:00 Pulse Ox 96 06/01/22 04:00 FiO2 Intake & Output 05/31/22 06/01/22 06/01/22 18:59 06:59 18:59 Intake Total 682 118 622 Output Total 1600 500 Balance -918 -367 622 Intake: IV 100 Oral 582 118 622 Output: Urine 1600 500 Other: Voiding Method Urinal Urinal - Labs CBC & Chem 7: 05/30/22 06:39 05/30/22 06:39 Labs: Abnormal Lab Results - Last 24 Hours (Table) 05/31/22 05/31/22 05/31/22 Range/Units 12:34 16:48 20:15 POC Glucose (mg/dL) 183 H 187 H 161 H (70-110) mg/dL 06/01/22 Range/Units 06:09 POC Glucose (mg/dL) 179 H (70-110) mg/dL
[2022-06-01] MEDS ORDERED: FUROSEMIDE 40 MG TAB PO SCH (09:00)
[2022-06-01] MEDS: FUROSEMIDE 20 MG TAB PO SCH (09:35)
[2022-06-01] MEDS: DAPAGLIFLOZIN PROPANEDIOL 10 MG TABLET PO SCH (09:35)
[2022-06-01] MEDS: APIXABAN 5 MG TAB PO SCH ×2 (09:36→19:55)
[2022-06-01] MEDS: ATORVASTATIN 40 MG TAB PO SCH (09:36)
[2022-06-01] MEDS: SPIRONOLACTONE 25 MG TAB PO SCH (09:36)
[2022-06-01 12:11] LABS: Glucose,Whole Blood 180 mg/dL (70-110)
[2022-06-01 17:02] LABS: Glucose,Whole Blood 185 mg/dL (70-110)
--- NOTE | 2022-06-01 19:28 | P.PN ---
Progress Note - Text Progress Note Date: 06/01/22 Chief Complaint: Short of breath This is a 51-year-old patient who does not have a family doctor. Has been diagnosed atrial fibrillation diabetes hypertension hyperlipidemia in the past. Stopped taking his medications. Presents at least another week off increasing shortness of breath swelling of the legs. Uses 2 pillows at night.. To palpitation. No fever no chills. No cough. May 30: Breathing some better. Edema present. Remains on IV Lasix 20 mg every 12. Will change to Lovenox therapeutic dose. A. fib uncontrolled. Toprol XL increased to 50 mg daily. May 31: Underwent cardiac catheterization today. Minimal disease. Breathing much better. 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 Increase activity. Care discussed with the patient. 2-D echo results. Compliance discussed. June 01: Ambulating. A bit tired. No chest pain. Dose of Aldactone incr eased. Lasix 20 mg. Farxiga 10 mg a day added. Cardiology discussed with him possibility of ICD implantation. Increase activity. Active Medications Acetaminophen (Acetaminophen Tab 325 Mg Tab) 650 mg PO Q6HR PRN PRN Reason: Mild Pain or Fever > 100.5 Alprazolam (Alprazolam 0.25 Mg Tab) 0.25 mg PO Q6HR PRN PRN Reason: Anxiety Apixaban (Apixaban 5 Mg Tab) 5 mg PO BID [facility]; Protocol Last Admin: 06/01/22 09:36 Dose: 5 mg Atorvastatin Calcium (Atorvastatin 40 Mg Tab) 40 mg PO DAILY [facility] Last Admin: 06/01/22 09:36 Dose: 40 mg Calcium Carbonate/Glycine (Calcium Carbonate 500 Mg Chewable) 1,000 mg PO Q4HR PRN PRN Reason: Dyspepsia Dapagliflozin (Dapagliflozin Propanediol 10 Mg Tablet) 10 mg PO DAILY [facility] Last Admin: 06/01/22 09:35 Dose: 10 mg Dextrose/Water (Dextrose 50% Syringe 50 Ml) 25 ml IVP PER PROTOCOL PRN; Protocol PRN Reason: Hypoglycemia Dextrose/Water (Dextrose 50% Syringe 50 Ml) 50 ml IVP PER PROTOCOL PRN; Protocol PRN Reason: Hypoglycemia Furosemide (Furosemide 20 Mg Tab) 20 mg PO DAILY [facility] Last Admin: 06/01/22 09:35 Dose: 20 mg Insulin Aspart (Insulin Aspart (Novolog) 100 Unit/Ml Vial) 0 unit SQ AC-TID [facility]; Protocol Last Admin: 06/01/22 17:56 Dose: 2 unit Lactulose (Lactulose 20 Gm/30 Ml Cup) 20 gm PO DAILY PRN PRN Reason: Constipation Losartan Potassium (Losartan 25 Mg Tab) 25 mg PO HS [facility] Last Admin: 05/31/22 20:34 Dose: 25 mg Metoprolol Succinate (Metoprolol Succinate (Er) 100 Mg Tab.Er.24h) 100 mg PO [facility] Last Admin: 05/31/22 20:34 Dose: 100 mg Miscellaneous Information (Rx Info: Iv Contrast Was Given 1 Each Misc) 1 each MISCELLANE DAILY PRN PRN Reason: Per Protocol Stop: 06/02/22 12:18 Naloxone HCl (Naloxone 0.4 Mg/Ml 1 Ml Vial) 0.2 mg IV Q2M PRN PRN Reason: Opioid Reversal Ondansetron HCl (Ondansetron 4 Mg/2 Ml Vial) 4 mg IVP Q8HR PRN PRN Reason: Nausea And Vomiting Spironolactone (Spironolactone 25 Mg Tab) 25 mg PO DAILY [facility] Last Admin: 06/01/22 09:36 Dose: 25 mg Temazepam (Temazepam 15 Mg Cap) 15 mg PO HS PRN PRN Reason: Insomnia Past medical history to include: Atrial fibrillation diabetes, hypertension, hyperlipidemia, ejection fraction 5% in 2019, CAD with stent in 2019 Social history: Lives with his ex-girlfriend. Does vaping. 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 Conjunctiva normal. HEENT: External appearance of nose and ears normal, oral cavity grossly normal. NECK: JVD t raised; masses not palpable. HEART: Heart sounds irregular; edema decreased LUNGS: Respiratory rate increased; decreased breath sounds. ABDOMEN: Soft, nontender, liver spleen not palpable, no masses palpable. PSYCH: Alert and oriented x3; mood and affect normal. MUSCULOSKELETAL:No Clubbing/cyanosis;muscles-grossly intact INVESTIGATIONS, reviewed in the clinical context: Cardiac catheterization: Mild nonobstructive CAD with patent stent in the mid LAD. May 30: Creatinine 0.92 potassium 4 White count 10.7 hemoglobin 17 platelets 213 potassium 4 BUN 15 creatinine 0.85 Troponin I 0.024, 0.032, 0.0223 ProBNP: 3490 UA showing protein 1+ Influenza type A/b/RSV/COVID-19: Not detected EKG tracing personally reviewed by me-atrial fibrillation rate 137 Doppler ultrasound: Negative for DVT Chest CTA: Negative for PE. Large gallstone. 2-D echocardiogram: EF 1050% [id number] MR. Chest x-ray film personally reviewed by me-nikolay bolivar, venous prominence Assessment plan: -Acute on chronic congestive heart flatus exacerbation from systolic dysfunction from ischemic cardiomyopathy from patient not taking his medications. EF 10-15% Lasix 20 mg by mouth daily. Aldactone 25 mg daily. Toprol-XL. Cozaar 25 mg daily at bedtime. farxiga 10 mg daily added -Persistent atrial fibrillation with a rapid ventricular rate: Controlled Eliquis. Increase Toprol-XL 100 mg daily at bedtime -IV heparin monitoring-discontinued Follow PTT -CAD with prior history of stent in 2019 Aspirin. Toprol-XL. Lipitor Cardiac catheterization showing patent stent to mid LAD. -Essential hypertension Toprol-XL -Chronic nicotine dependence cigarette smoker Nicotine patch -Morbid obesity BMI 44.4 Weight loss measures Medications just in by cardiology. They did discuss ICD. Increase activity.
[2022-06-01] MEDS: METOPROLOL SUCCINATE (ER) 100 MG TAB.ER.24H PO SCH (19:55)
[2022-06-01] MEDS: LOSARTAN 25 MG TAB PO SCH (19:55)
[2022-06-01 20:08] LABS: Glucose,Whole Blood 168 mg/dL (70-110)
[2022-06-02 06:04] LABS: Glucose,Whole Blood 155 mg/dL (70-110)
[2022-06-02] MEDS: INSULIN ASPART (NovoLOG) 100 UNIT/ML VIAL SQ SCH ×2 (06:16→11:38)
[2022-06-02 07:26] LABS: African American GFR (CKD) >90 (>60 ml/min/1.73 sqM); Anion Gap 6 mmol/L; Blood Urea Nitrogen 22 mg/dL (9-20); Calcium 8.9 mg/dL (8.4-10.2); Carbon Dioxide 31 mmol/L (22-30); Chloride 103 mmol/L (98-107); Glucose 161 mg/dL (74-99); Non-African American GFR(CKD) 80 (>60 ml/min/1.73 sqM); Sodium 140 mmol/L (137-145)
--- NOTE | 2022-06-02 08:17 | P.PN ---
Subjective Progress Note Date: 06/02/22 PROGRESS NOTE The patient is a 51-year-old male, history of CAD, chronic persistent A. fib, history of cardiomyopathy, noncompliance and smoking who presented with worsening CHF, worsening edema. He underwent cardiac catheterization yesterday and was found to have no evidence of significant progression of disease. He is feeling better today, he denies any dizziness, palpitations or syncope. He denies any nausea. He is in atrial fibrillation with controlled ventricular response. May 02: The patient is feeling better, stronger, ambulating without significant dyspnea. He denies any chest discomfort, dizziness or palpitations. He is anxious to go home. He continues to be in atrial fibrillation is controlled ventricular response. Medications: Lasix 20 mg daily, losartan 25 mg daily, metoprolol succinate 100 mg daily, Aldactone 25 mg daily,Eliquis 5 mg twice a day, Farxiga 10 mg daily, Lipitor 40 mg daily PHYSICAL EXAMINATION: Blood pressure 105/70 heart rate 60 LUNGS: Clear to auscultation HEART: Irregular rate and rhythm, S1, S2. No S3. No systolic murmur ABDOMEN: Soft, nontender, no organomegaly EXTREMETIES: No edema LAB: BUN 22, creatinine 1.07, NT proBNP 2280, improved since admission IMPRESSION: 1. Severe cardiomyopathy, probable combination of ischemic and nonischemic with some evidence of CHF on admission 2. Chronic persistent atrial fibrillation 3. History of CAD, patent stent 4. History of noncompliance PLAN: 1. Continue medical therapy 2. Probable discharge home today 3. Follow a half as outpatient and if there is no improvement consider ICD implantation. Objective - Vital Signs Vital signs: Vital Signs Temp 97.8 F 06/02/22 04:00 Pulse 73 06/02/22 04:00 Resp 18 06/02/22 04:00 BP 86/61 06/02/22 04:00 Pulse Ox 98 06/02/22 04:00 FiO2 Intake & Output 06/01/22 06/02/22 06/02/22 18:59 06:59 18:59 Intake Total 1342 236 118 Output Total 1300 900 Balance 42 -664 118 Intake: Oral 1342 236 118 Output: Urine 1300 900 Other: Voiding Method Urinal Urinal - Labs CBC & Chem 7: 05/30/22 06:39 06/02/22 06:36 Labs: Abnormal Lab Results - Last 24 Hours (Table) 06/01/22 06/01/22 06/01/22 Range/Units 12:10 17:00 20:07 Carbon Dioxide (22-30) mmol/L BUN (9-20) mg/dL Glucose (74-99) mg/dL POC Glucose (mg/dL) 180 H 185 H 168 H (70-110) mg/dL 06/02/22 06/02/22 Range/Units 06:02 06:36 Carbon Dioxide 31 H (22-30) mmol/L BUN 22 H (9-20) mg/dL Glucose 161 H (74-99) mg/dL POC Glucose (mg/dL) 155 H (70-110) mg/dL
[2022-06-02] MEDS: FUROSEMIDE 20 MG TAB PO SCH (08:33)
[2022-06-02] MEDS: DAPAGLIFLOZIN PROPANEDIOL 10 MG TABLET PO SCH (08:33)
[2022-06-02] MEDS: APIXABAN 5 MG TAB PO SCH (08:33)
[2022-06-02] MEDS: SPIRONOLACTONE 25 MG TAB PO SCH (08:34)
[2022-06-02] MEDS: ATORVASTATIN 40 MG TAB PO SCH (08:34)
[2022-06-02 11:35] LABS: Glucose,Whole Blood 170 mg/dL (70-110)
[2022-06-02 12:47] VITALS: BP 136/80; PULSE 95; RESP 19; TEMP 98
--- NOTE | 2022-06-02 21:47 | P.DS ---
Providers Date of admission: 05/29/22 00:50 Expected date of discharge: 06/02/22 Attending physician: Mathew Chin Consults: 05/29/22 00:50 Consult Physician Routine Consulting Provider: [facility] Consult Reason/Comments: afib with rvr, med noncompliance Do you want consulting provider notified?: Yes, Notify in am Primary care physician: Stated None Hospital Course: Chief Complaint: Short of breath This is a 51-year-old patient who does not have a family doctor. Has been diagnosed atrial fibrillation diabetes hypertension hyperlipidemia in the past. Stopped taking his medications. Presents at least another week off increasing shortness of breath swelling of the legs. Uses 2 pillows at night.. To palpitation. No fever no chills. No cough. May 30: Breathing some better. Edema present. Remains on IV Lasix 20 mg every 12. Will change to Lovenox therapeutic dose. A. fib uncontrolled. Toprol XL increased to 50 mg daily. May 31: Underwent cardiac catheterization today. Minimal disease. Breathing much better. prover to oral Lasix. Increase activity. Care discussed with the patient. 2-D echo results. Compliance discussed. June 01: Ambulating. A bit tired. No chest pain. Dose of Aldactone increased. Lasix 20 mg. Farxiga 10 mg a day added. Cardiology discussed with him possibility of ICD implantation. Increase activity. June 02: Stable. Cleared by cartilage E for discharge. Activity as per cardiology E upon discharge. He'll follow-up with cardiology, Dr. Hudson Past medical history to include: Atrial fibrillation diabetes, hypertension, hyperlipidemia, ejection fraction 2025% in 2019, CAD with stent in 2019 Social history: Lives with his ex-girlfriend. Does vaping. No alcohol. 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 Conjunctiva normal. HEENT: External appearance of nose and ears normal, oral cavity grossly normal. NECK: JVD t raised; masses not palpable. HEART: Heart sounds irregular; edema decreased LUNGS: Respiratory rate increased; decreased breath sounds. ABDOMEN: Soft, nontender, liver spleen not palpable, no masses palpable. PSYCH: Alert and oriented x3; mood and affect normal. MUSCULOSKELETAL:No Clubbing/cyanosis;muscles-grossly intact INVESTIGATIONS, reviewed in the clinical context: June 02: Potassium 4 creatinine 1.07 proBNP 2280 Cardiac catheterization: Mild nonobstructive CAD with patent stent in the mid LAD. White count 10.7 hemoglobin 17 platelets 213 potassium 4 BUN 15 creatinine 0.85 Troponin I 0.024, 0.032, 0.0223 ProBNP: 3490 UA showing protein 1+ Influenza type A/b/RSV/COVID-19: Not detected EKG tracing personally reviewed by me-atrial fibrillation rate 137 Doppler ultrasound: Negative for DVT Chest CTA: Negative for PE. Large gallstone. 2-D echocardiogram: EF 1050% [id number] MR. Chest x-ray film personally reviewed by me-nikolay bolivar, venous prominence Assessment plan: -Acute on chronic congestive heart flatus exacerbation from systolic dysfunction from ischemic cardiomyopathy from patient not taking his medications. EF 10-15% Lasix 20 mg by mouth daily. Aldactone 25 mg daily. Toprol-XL. Cozaar 25 mg daily at bedtime. farxiga 10 mg daily . Consideration about ICD outpatient -Persistent atrial fibrillation with a rapid ventricular rate: Controlled Eliquis. Increase Toprol-XL 100 mg daily at bedtime -IV heparin monitoring-discontinued Follow PTT -CAD with prior history of stent in 2019 Aspirin. Toprol-XL. Lipitor Cardiac catheterization showing patent stent to mid LAD. -Essential hypertension Toprol-XL -Chronic nicotine dependence cigarette smoker Nicotine patch -Morbid obesity BMI 44.4 Weight loss measures Disposition: Home Plan - Discharge Summary Discharge Rx Participant: Yes New Discharge Prescriptions: New Furosemide [Lasix] 20 mg PO DAILY #30 tab Atorvastatin [Lipitor] 40 mg PO DAILY #30 tab Apixaban [Eliquis] 5 mg PO BID #60 tab Dapagliflozin Propanediol [Farxiga] 10 mg PO DAILY #30 tab Spironolactone [Aldactone] 25 mg PO DAILY #30 tab Losartan [Cozaar] 25 mg PO HS #30 tab Metoprolol Succinate (ER) [Toprol XL] 100 mg PO HS #30 tab Discharge Medication List Apixaban [Eliquis] 5 mg PO BID #60 tab 06/01/22 [Rx] Atorvastatin [Lipitor] 40 mg PO DAILY #30 tab 06/01/22 [Rx] Dapagliflozin Propanediol [Farxiga] 10 mg PO DAILY #30 tab 06/01/22 [Rx] Furosemide [Lasix] 20 mg PO DAILY #30 tab 06/01/22 [Rx] Losartan [Cozaar] 25 mg PO HS #30 tab 06/01/22 [Rx] Metoprolol Succinate (ER) [Toprol XL] 100 mg PO HS #30 tab 06/01/22 [Rx] Spironolactone [Aldactone] 25 mg PO DAILY #30 tab 06/01/22 [Rx] Follow up Appointment(s)/Referral(s): Gigi Ricketts MD [STAFF PHYSICIAN] - 1 Week (office will call you to schedule. if you do not hear from them within 2 days call to follow up. ) Clarke Maxwell MD [Medical Doctor] - 06/03/22 1:00 pm Patient Instructions/Handouts: *Surgery [facility] - After Heart Catheterization - Trend Investigator Instructions, Heart Failure (DC), A-fib (Atrial Fibrillation) (DC) Activity/Diet/Wound Care/Special Instructions: activity per cardiology fluid restrict 2000 cc/day Discharge Disposition: HOME SELF-CARE
== END 2022-06-02 12:56 | disposition home or self-care (01) | DRG 286 ==
LOC: EC 22:04 → 3SCARD 05-29 00:50
PROVIDERS: ADMIT Hospitalist; ATTEND Hospitalist
PROC: B2111ZZ Fluoroscopy of Multiple Coronary Arteries using Low Osmolar Contrast (ICD-10-PCS; principal; 2022-05-31 10:00)
PROC: 4A023N7 Measurement of Cardiac Sampling and Pressure, Left Heart, Percutaneous Approach (ICD-10-PCS; principal; 2022-05-31 10:00)
DX: I11.0 Hypertensive heart disease with heart failure (principal); I50.23 Acute on chronic systolic (congestive) heart failure; I48.19 Other persistent atrial fibrillation; Z68.41 Body mass index [BMI] 40.0-44.9, adult; I25.10 Atherosclerotic heart disease of native coronary artery without angina pectoris; T45.516A Underdosing of anticoagulants, initial encounter; Z91.128 Patient's intentional underdosing of medication regimen for other reason; F41.9 Anxiety disorder, unspecified; G47.00 Insomnia, unspecified; I25.5 Ischemic cardiomyopathy; E66.01 Morbid (severe) obesity due to excess calories; I42.8 Other cardiomyopathies; Z20.822 Contact with and (suspected) exposure to COVID-19; K59.00 Constipation, unspecified; Z79.01 Long term (current) use of anticoagulants; Z79.899 Other long term (current) drug therapy; Z95.5 Presence of coronary angioplasty implant and graft; F17.290 Nicotine dependence, other tobacco product, uncomplicated; Z91.030 Bee allergy status; Z91.013 Allergy to seafood
CPT/HCPCS: 36415; 71046; 71275; 80048; 80053; 81001; 83036; 83880; 84484; 85025; 85610; 85730; 87636; 93005; 93306; 93458; 93970; 94760; 96365; 96366; 96368; 96375; 99291

== ENCOUNTER 2023-05-16 04:55 | Emergency (ER) | payer OTHER ==
[2023-05-16 05:04] VITALS: RESP 18; TEMP 99.1
[2023-05-16] MEDS ORDERED: CEPHALEXIN 500MG STARTER PACK 4 CAP BTL PO STA (05:44)
[2023-05-16] MEDS ORDERED: CEPHALEXIN 500 MG CAP PO STA (05:44)
[2023-05-16] MEDS ORDERED: cefTRIAXone 250 MG VIAL IM STA (05:44)
--- NOTE | 2023-05-16 05:45 | ED ---
Skin/Abscess/FB HPI - General Chief complaint: Skin/Abscess/Foreign Body Stated complaint: Cellulitis Right Leg Time Seen by Provider: 05/16/23 05:23 Source: patient, RN notes reviewed, old records reviewed Mode of arrival: ambulatory Limitations: no limitations - History of Present Illness Initial comments: This is a 52-year-old male to the ER today for evaluation of pain right leg pain. Patient believes she has recurrent infection of his legs. Patient has significant history of leg cellulitis, swelling of both legs significant redness and some drainage of the right leg. Patient is felt like his right leg is leaking and is not wet. Patient has no trauma no other complaints no shortness of breath or chest pain. MD complaint: rash, other (Significant bilateral leg pain swelling and edema, redness) -: days(s) Location: LLE, RLE Severity: mild, moderate Severity scale (1-10): 3 Consistency: constant Improves with: none Worsens with: none Treatments Prior to Arrival: none - Related Data Previous Rx's Medication Instructions Recorded Apixaban [Eliquis] 5 mg PO BID #60 tab 06/01/22 Atorvastatin [Lipitor] 40 mg PO DAILY #30 tab 06/01/22 Dapagliflozin Propanediol [Farxiga] 10 mg PO DAILY #30 tab 06/01/22 Furosemide [Lasix] 20 mg PO DAILY #30 tab 06/01/22 Losartan [Cozaar] 25 mg PO HS #30 tab 06/01/22 Metoprolol Succinate (ER) [Toprol 100 mg PO HS #30 tab 06/01/22 XL] Spironolactone [Aldactone] 25 mg PO DAILY #30 tab 06/01/22 Cephalexin [Keflex] 500 mg PO Q6HR #40 cap 05/16/23 Allergies Allergy/AdvReac Type Severity Reaction Status Date / Time bee venom protein (honey bee) Allergy Anaphylaxis Verified 05/16/23 05:01 shellfish derived Allergy Anaphylaxis Verified 05/16/23 05:01 Review of Systems ROS Statement: Those systems with pertinent positive or pertinent negative responses have been documented in the HPI. ROS Other: All systems not noted in ROS Statement are negative. Past Medical History Past Medical History: Atrial Fibrillation, Diabetes Mellitus, Hyperlipidemia, Hypertension Additional Past Medical History / Comment(s): Echo 11/20/19 EF 20-25% History of Any Multi-Drug Resistant Organisms: None Reported Past Surgical History: Heart Catheterization With Stent Additional Past Surgical History / Comment(s): LAD stent X 2 on 11/17/19 Past Anesthesia/Blood Transfusion Reactions: No Reported Reaction Date of Last Stent Placement:: 11/17/19 Past Psychological History: No Psychological Hx Reported Smoking Status: Current every day smoker Past Alcohol Use History: None Reported Past Drug Use History: None Reported - Past Family History Mother Family Medical History: Cancer General Exam Limitations: no limitations General appearance: alert, in no apparent distress Head exam: Present: atraumatic, normocephalic, normal inspection Eye exam: Present: normal appearance, PERRL, EOMI. Absent: scleral icterus, conjunctival injection, periorbital swelling ENT exam: Present: normal exam, mucous membranes moist Neck exam: Present: normal inspection. Absent: tenderness, meningismus, lymphadenopathy Respiratory exam: Present: normal lung sounds bilaterally. Absent: respiratory distress, wheezes, rales, rhonchi, stridor Cardiovascular Exam: Present: regular rate, normal rhythm, normal heart sounds. Absent: systolic murmur, diastolic murmur, rubs, gallop, clicks GI/Abdominal exam: Present: soft, normal bowel sounds. Absent: distended, tenderness, guarding, rebound, rigid Extremities exam: Present: normal inspection, full ROM, normal capillary refill. Absent: tenderness, pedal edema, joint swelling, calf tenderness Back exam: Present: normal inspection Neurological exam: Present: alert, oriented X3, CN II-XII intact Psychiatric exam: Present: normal affect, normal mood Skin exam: Present: warm, dry, intact, normal color. Absent: rash Course Vital Signs 05/16/23 05/16/23 05:01 06:28 Temperature 99.1 F Pulse Rate 66 76 Respiratory 18 18 Rate Blood Pressure 138/93 123/86 O2 Sat by Pulse 96 99 Oximetry - Reevaluation(s) Reevaluation #1: Medical records reviewed Reevaluation #2: Patient symptoms improved Reevaluation #3: Patient informed results and questions answered Reevaluation #4: Was pt. sent in by a medical professional or institution (, PA, WINDING OPERATOR, urgent care, hospital, or long term...) When possible be specific @ -no Did you speak to anyone other than the patient for history (EMS, parent, family, police, friend...)? What history was obtained from this source @ -no Did you review nursing and triage notes (agree or disagree)? Why? @ -agree Are old charts reviewed (outside hosp., previous admission, EMS record, old EKG, old radiological studies, urgent care reports/EKG's, long term records)? Report findings @ -yes Differential Diagnosis (chest pain, altered mental status, abdominal pain women, abdominal pain men, vaginal bleeding, weakness, fever, dyspnea, syncope, head ache, dizziness, GI bleed, back pain, seizure, CVA, palpatations, mental health, musculoskeletal)? @ -prior EKG interpreted by me (3pts min.). @ -no X-rays interpreted by me (1pt min.). @ -no CT interpreted by me (1pt min.). @ -no U/S interpreted by me (1pt. min.). @ -no What testing was considered but not performed or refused? (CT, X-rays, U/S, labs)? Why? @ -none What meds were considered but not given or refused? Why? @ -none Did you discuss the management of the patient with other professionals (professionals i.e. DrGiovanni, PA, WINDING OPERATOR, lab, RT, psych nurse, social service technician, attorney lawyer, teacher, animal services officer, watch caser)? Give summary @ -no Was smoking cessation discussed for >3mins.? @ -no Were there social determinants of health that impacted care today? How? (Homelessness, low income, unemployed, alcoholism, drug addiction, transportation, low edu. Level, literacy, decrease access to med. care, halfway, rehab)? @ -none Was there de-escalation of care discussed even if they declined (Discuss DNR or withdrawal of care, Hospice)? DNR status @ -no What co-morbidities impacted this encounter? (DM, HTN, Smoking, COPD, CAD, Cancer, CVA, ARF, Chemo, Hep., AIDS, mental health diagnosis, sleep apnea, morbid obesity)? @ -none Was patient admitted / discharged? Hospital course, mention meds given and route, prescriptions, significant lab abnormalities, going to OR and other pertinent info. @ - 52 male to the ER for evaluation today. Patient has significant lower extremity swelling, redness edema patient does have noted leaking of the right lower extremity currently. Patient replacement antibiotics prefers discharge Discharge Was critical care preformed (if so, how long)? @ -no Undiagnosed new problem with uncertain prognosis? @ -no Drug Therapy requiring intensive monitoring for toxicity (Heparin, Nitro, Insulin, Cardizem)? @ -no Were any procedures done? @ -no Diagnosis/symptom? @ -Bilateral looks very cellulitis Acute, or Chronic, or Acute on Chronic? @ -Acute Uncomplicated (without systemic symptoms) or Complicated (systemic symptoms)? @ -Complicated Side effects of treatment? @ -no Exacerbation, Progression, or Severe Exacerbation? @ -exacerbation Poses a threat to life or bodily function? How? (Chest pain, [place], [place], pneumonia, PE, COPD, DKA, ARF, appy, cholecystitis, CVA, Diverticulitis, Homicidal, Suicidal, threat to staff... and all critical care pts) @ -no Medical Decision Making - Medical Decision Making 52 male to the ER for evaluation today. Patient has significant lower extremity swelling, redness edema patient does have noted leaking of the right lower extremity currently. Patient replacement antibiotics prefers discharge Disposition Clinical Impression: Leg edema, Cellulitis of right leg, Bilateral lower leg cellulitis, Uncontrolled diabetes mellitus, CAD (coronary artery disease) Disposition: HOME SELF-CARE Condition: Good Instructions (If sedation given, give patient instructions): Cellulitis (ED) Prescriptions: Cephalexin [Keflex] 500 mg PO Q6HR #40 cap Is patient prescribed a controlled substance at d/c from ED?: No Referrals: None,Stated [Primary Care Provider] - 1-2 days Time of Disposition: 05:45
[2023-05-16 06:42] VITALS: BP 123/86; PULSE 76
== END 2023-05-16 06:28 | disposition home or self-care (01) ==
LOC: EC 04:55
DX: L03.116 Cellulitis of left lower limb (principal); L03.115 Cellulitis of right lower limb; E11.65 Type 2 diabetes mellitus with hyperglycemia; I25.10 Atherosclerotic heart disease of native coronary artery without angina pectoris; I10 Essential (primary) hypertension; I48.91 Unspecified atrial fibrillation; F17.200 Nicotine dependence, unspecified, uncomplicated; Z91.030 Bee allergy status; Z91.013 Allergy to seafood
CPT/HCPCS: 99284; 96372; J0696

== ENCOUNTER → 2023-11-15 | Outpatient (CLI) | payer OTHER ==
--- NOTE | 2023-11-16 10:33 | CA ---
Transthoracic Echo Report Name: Johnny Kohli Age: 53 Gender: M : 1970 Exam Date: 11/15/2023 15:03 Exam Location: [facility] Ht (in): 78 Wt (lb): 277 Ordering Physician: Rommel Ellis DO ([email or web address]) Attending/Referring Phys: Norma Fields [facility] [employer] Lid Fitter Joanne Camara RDCS Procedure CPT: Indications: I50.22 CHF, I48.0 PAROXYSMAL ARTIAL FIB Cardiac Hx: Technical Quality: Fair Contrast 1: Total Dose (mL): Contrast 2: Total Dose (mL): MEASUREMENTS (Male / Female) Normal Values 2D ECHO LV Diastolic Diameter PLAX 6.4 cm 4.2 - 5.9 / 3.9 - 5.3 cm LV Systolic Diameter PLAX 5.9 cm IVS Diastolic Thickness 1.4 cm 0.6 - 1.0 / 0.6 - 0.9 cm LVPW Diastolic Thickness 1.6 cm 0.6 - 1.0 / 0.6 - 0.9 cm LV Relative Wall Thickness 0.5 RV Internal Dim ED PLAX 4.3 cm LV Diastolic Volume MOD BP 268.4 cm??? 67 - 155 / 56 - 104 cm??? LV Systolic Volume MOD BP 175.1 cm??? 22 - 58 / 19 - 49 cm??? LV Ejection Fraction MOD BP 34.8 % >= 55 % LV Cardiac Index MOD BP 3371.0 cm???/min???m??? LV Diastolic Volume MOD 4C 260.2 cm??? LV Systolic Volume MOD 4C 172.9 cm??? LV Ejection Fraction MOD 4C 33.6 % LV Cardiac Index MOD 4C 3154.3 cm???/min???m??? LV Diastolic Length 4C 10.5 cm LV Systolic Length 4C 8.9 cm LV Diastolic Volume MOD 2C 237.4 cm??? LV Systolic Volume MOD 2C 166.9 cm??? LV Ejection Fraction MOD 2C 29.7 % LV Cardiac Index MOD 2C 2546.0 cm???/min???m??? LV Diastolic Length 2C 8.7 cm LV Systolic Length 2C 8.4 cm LA Volume 142.0 cm??? 18 - 58 / 22 - 52 cm??? LA Volume Index 53.4 cm???/m??? 16 - 28 cm???/m??? M-MODE Aortic Root Diameter MM 4.0 cm LA Systolic Diameter MM 6.5 cm LA Ao Ratio MM 1.6 AV Cusp Separation MM 2.2 cm DOPPLER AV Peak Velocity 162.2 cm/s AV Peak Gradient 10.5 mmHg AV Mean Velocity 119.2 cm/s AV Mean Gradient 6.1 mmHg AV Velocity Time Integral 37.2 cm LVOT Peak Velocity 119.1 cm/s LVOT Peak Gradient 5.7 mmHg LVOT Velocity Time Integral 20.8 cm MV E' Velocity 5.8 cm/s TR Peak Velocity 268.3 cm/s TR Peak Gradient 28.8 mmHg Right Ventricular Systolic Press 33.8 mmHg FINDINGS Left Ventricle Moderately increased septal wall thickness. Mildly increased left ventricular diastolic diameter. Severely increased left ventricular diastolic volume. Severely increased left ventricular systolic volume. Moderately decreased left ventricular ejection fraction. Left ventricular ejection fraction is estimated at 25-30 %. Grade 2 diastolic dysfunction. Right Ventricle Right ventricular dilatation. Right Atrium Normal right atrial size. Left Atrium Severely increased left atrial volume. Moderately increased left atrial area. Mitral Valve Structurally normal mitral valve. Mild mitral annular calcification. Mild-to- moderate mitral regurgitation. Aortic Valve Thickened aortic valve without stenosis. No aortic regurgitation. Tricuspid Valve Mild tricuspid regurgitation. Pulmonic Valve Structurally normal pulmonic valve. Pericardium No pericardial effusion. Aorta Normal size aortic root and proximal ascending aorta CONCLUSIONS Left ventricular ejection fraction 25-30% Moderately increased left ventricular wall thickness Moderately dilated left atrium Mild to moderate mitral regurgitation Mild tricuspid regurgitation RVSP 34 Previewed by: Dr. Rommel Ellis DO (Electronically Signed) Final Date: 16 November 2023 10:33
== END | disposition home or self-care (01) ==
LOC: RADECHMAIN 14:51
PROVIDERS: ATTEND Internal Medicine
DX: I50.22 Chronic systolic (congestive) heart failure (principal); I48.0 Paroxysmal atrial fibrillation; I08.1 Rheumatic disorders of both mitral and tricuspid valves
CPT/HCPCS: 93306